=== PATIENT | female | born 1930 | race Caucasian/White ===

== ENCOUNTER 2016-07-23 06:20 | Inpatient (IN) | payer OTHER ==
[~2016-07-23] VITALS: Ht 154.9 cm; Wt 78.1 kg
[~2016-07-23 06:20] MED LIST: AMLODIPINE BESYL5 MG PO; ASPIR 8181 MG PO; ASPIRIN81 M1 PO; ATENOLOL100 MG; BACTRIM DS 8001 TA1 PO; BISACODYL5 MG PO; CALCIUM + VITA1 EAC2 PO; CALCIUM 600 MG1 EACH PO; CALCIUM CARB W/1 TA1 PO; CHEWABLE VITE1 CTB PO; CIPRO250 MG PO; COLACE100 MG; DOXYCYCLINE100 MG PO; FERRLECIT62.5 MG/5 IV; FERROUS SULFAT325 M1; FERROUS SULFAT325 MG PO; FLUCONAZOLE100 MG PO; FUROSEMIDE20 M1 PO; HUMALOG100 U/ML SC; HYDRALAZINE10 MG PO; HYDROCODONE BIT1 T11 PO; JANUVIA100 MG PO; JANUVIA50 MG; JANUVIA50 MG PO; K-TAB10 MEQ PO; LASIX20 MG PO; LEVOFLOXACIN500 MG PO; LOPERAMIDE2 MG; MACROBID100 M1 PO; MIRALAX17 GM/PACK PO; MOM30 ML PO; MOTRIN800 MG PO; NORCO 5-325 TA1 EACH PO; NORVASC5 MG PO; OYSTER CALCIUM1 TA1 PO; OYSTER SHELL CA1 TAB; POTASSIUM99 M2 PO; PREDNISONE10 M1 PO; PREDNISONE10 MG PO; PRILOSEC20 MG; PRILOSEC20 MG PO; PROTONIX TR40 MG PO; ROBITUSSIN DM 105 ML PO; SIMVASTATIN20 MG PO; SODIUM FERRIC GLUCONATE COMPLEX IV; TENORMIN100 MG PO; VITAMIN D1000 IU PO; VITAMIN D32000 IU PO; VYTORIN 10 MG-41 TA1 PO; XANAX0.25 MG PO; ZITHROMAX Z PA250 MG PO; ZOCOR40 MG PO; [UNRECOGNIZED DRUG - OTHER]; [UNRECOGNIZED DRUG - OTHER]; [UNRECOGNIZED DRUG - REMARK]; [UNRECOGNIZED DRUG - REMARK]
[2016-07-23 06:29] VITALS: BP 125/59
[2016-07-23 07:13] LABS: BILIRUBIN NEGATIVE (NEGATIVE); BLOOD NEGATIVE (NEGATIVE); CLARITY CLOUDY (CLEAR); COLOR YELLOW (YELLOW); GLUCOSE NEGATIVE (NEGATIVE); KETONE NEGATIVE (NEGATIVE); LEUKO ESTERASE 2+ (NEGATIVE); NITRITE POSITIVE (NEGATIVE); PH 6.5 (5.0-9.0); PROTEIN 2+ (NEGATIVE); SPECIFIC GRAVITY 1.015 (1.005-1.030); UROBILINOGEN 0.2 E.U./dl (0.2-1.0)
[2016-07-23 07:19] VITALS: BP 124/68
[2016-07-23 07:20] LABS: BASO # 0.1 10*3/uL (0.0-0.1); EOS # 0.2 10*3/uL (0.0-0.4); EOS % 2.4 % (1.0-4.0); HEMATOCRIT 35.5 % (37.0-47.0); LYMPH # 1.1 10*3/uL (1.3-4.4); LYMPH % 14.5 % (27.0-41.0); MEAN CELL VOLUME 86.2 fl (81.0-99.0); MEAN CORPUSCULAR HGB 26.7 pg (27.0-31.0); MEAN PLATELET VOLUME 11.4 fl (9.6-12.3); MONO # 0.6 10*3/uL (0.1-1.0); NEUT # 5.3 10*3/uL (2.3-7.9); NEUT % 73.8 % (47.0-73.0); PLATELET COUNT AUTOMATED 208 10*3/uL (130-400); RED BLOOD COUNT 4.12 10*6/uL (4.10-5.10); RED CELL DISTRI WIDTH 14.8 % (0-14.5); WHITE BLOOD COUNT 7.2 10*3/uL (4.8-10.8)
[2016-07-23 07:26] LABS: BACTERIA 4+; URINE REFLEX COMMENT YES (NO); WBC TNTC wbc/hpf (0-5)
[2016-07-23 07:27] LABS: PROTHROMBIN TIME 10.8 SECONDS (9.0-12.4)
[2016-07-23 07:31] LABS: URINE AMPHETAMINES < 1000 (1000ng/ml); URINE BARBITURATES < 200 (200ng/ml); URINE COCAINE < 300 (300ng/ml)
[2016-07-23 07:43] LABS: ALBUMIN 3.3 gm/dl (3.1-4.5); ALKALINE PHOSPHATASE 94 U/L (45-117); BUN 28 mg/dl (7-24); CARBON DIOXIDE 22 mmol/L (21-32); CHLORIDE 108 mmol/L (98-107); EST GLOM FILT AFRICAN AMERICAN 39 ml/min; GLUCOSE 132 mg/dL (65-99); MAGNESIUM 1.9 mg/dL (1.5-2.1); POTASSIUM 4.1 mmol/L (3.5-5.1); SGOT/AST 15 IU/L (3-35); SGPT/ALT 13 U/L (12-78); SODIUM 142 mmol/L (136-145)
[2016-07-23 07:44] LABS: TROPONIN I < 0.015 ng/ml (<0.5)
[2016-07-23 09:30] VITALS: BP 186/67
[2016-07-23 12:24] LABS: CKMB 0.7 ng/ml (0.5-3.6); CPK 35 U/L (26-192)
[2016-07-23 12:25] LABS: TROPONIN I < 0.015 ng/ml (<0.5)
[2016-07-23 16:00] VITALS: BP 147/68
[2016-07-23 19:44] LABS: CKMB 0.8 ng/ml (0.5-3.6); CPK 32 U/L (26-192)
[2016-07-23 19:45] LABS: TROPONIN I < 0.015 ng/ml (<0.5)
[2016-07-23 20:00] VITALS: BP 149/62
[2016-07-24] VITALS: BP 136/55
[2016-07-24 00:50] LABS: CKMB 0.7 ng/ml (0.5-3.6); CPK 25 U/L (26-192); TROPONIN I < 0.015 ng/ml (<0.5)
[2016-07-24 07:26] LABS: BASO % 0.3 % (0.0-1.0); EOS # 0.2 10*3/uL (0.0-0.4); EOS % 2.7 % (1.0-4.0); HEMATOCRIT 34.6 % (37.0-47.0); HEMOGLOBIN 10.5 g/dl (12.0-16.0); MEAN CORPUSCULAR HGB 25.8 pg (27.0-31.0); MEAN CORPUSCULAR HGB CONC 30.3 g/dl (33.0-37.0); MONO # 0.5 10*3/uL (0.1-1.0); MONO % 7.9 % (3.0-9.0); NEUT # 4.9 10*3/uL (2.3-7.9); NEUT % 73.5 % (47.0-73.0); PLATELET COUNT AUTOMATED 180 10*3/uL (130-400); RED BLOOD COUNT 4.07 10*6/uL (4.10-5.10); RED CELL DISTRI WIDTH 14.7 % (0-14.5); WHITE BLOOD COUNT 6.6 10*3/uL (4.8-10.8)
[2016-07-24 07:57] LABS: PROTHROMBIN TIME 10.5 SECONDS (9.0-12.4)
[2016-07-24 08:00] VITALS: BP 156/64
[2016-07-24 08:05] LABS: BILIRUBIN, TOTAL 0.5 mg/dl (0.2-1.0); MAGNESIUM 1.6 mg/dL (1.5-2.1); PHOSPHOROUS 2.7 mg/dL (2.5-4.9); POTASSIUM 4.2 mmol/L (3.5-5.1); TOTAL PROTEIN 6.5 gm/dL (6.4-8.2)
[2016-07-24 12:00] VITALS: BP 160/74
[2016-07-24 16:00] VITALS: BP 150/87
[2016-07-24 20:00] VITALS: BP 156/73
[2016-07-25] VITALS: BP 158/64
[2016-07-25 08:00] VITALS: BP 150/80
[2016-07-25 12:00] VITALS: BP 126/55
[2016-07-25] MEDS ORDERED: CEFUROXIME AXE250 MG PO (14:23)
[2016-07-25 16:00] VITALS: BP 145/88
== END 2016-07-25 19:00 | DRG 682 ==
LOC: ED 06:20 → 4E 09:02 → EDHOLD 09:02 → 4E 09:25
PROVIDERS: Emergency Medicine Emergency Medical Services; Family Medicine
DX: N17.0 Acute kidney failure with tubular necrosis (principal); G93.41 Metabolic encephalopathy; E11.65 Type 2 diabetes mellitus with hyperglycemia; E11.22 Type 2 diabetes mellitus with diabetic chronic kidney disease; N39.0 Urinary tract infection, site not specified; D64.9 Anemia, unspecified; E87.8 Other disorders of electrolyte and fluid balance, not elsewhere classified; N18.3 Chronic kidney disease, stage 3 (moderate); I12.9 Hypertensive chronic kidney disease with stage 1 through stage 4 chronic kidney disease, or unspecified chronic kidney disease; K21.9 Gastro-esophageal reflux disease without esophagitis; E78.5 Hyperlipidemia, unspecified; B96.4 Proteus (mirabilis) (morganii) as the cause of diseases classified elsewhere; E66.9 Obesity, unspecified; K57.90 Diverticulosis of intestine, part unspecified, without perforation or abscess without bleeding; Z90.49 Acquired absence of other specified parts of digestive tract; Z85.3 Personal history of malignant neoplasm of breast; Z90.710 Acquired absence of both cervix and uterus; Z90.10 Acquired absence of unspecified breast and nipple; Z98.49 Cataract extraction status, unspecified eye; Z87.891 Personal history of nicotine dependence; Z82.49 Family history of ischemic heart disease and other diseases of the circulatory system; Z83.3 Family history of diabetes mellitus; Z80.3 Family history of malignant neoplasm of breast; Z79.82 Long term (current) use of aspirin; Z79.899 Other long term (current) drug therapy; Z87.440 Personal history of urinary (tract) infections; Z68.32 Body mass index [BMI] 32.0-32.9, adult

== ENCOUNTER 2016-10-06 09:46 | Inpatient (IN) | payer OTHER ==
[2016-10-06] VITALS (14 sets, daily range): BP systolic 99–162; BP diastolic 55–100
[~2016-10-06] VITALS: Ht 154.9 cm; Wt 80.3 kg
[~2016-10-06 09:46] MED LIST changes: +CEFUROXIME AXE250 MG PO
[2016-10-06 10:15] LABS: HEMATOCRIT 21.1 % (37.0-47.0); MEAN CELL VOLUME 76.7 fl (81.0-99.0); MEAN CORPUSCULAR HGB 21.5 pg (27.0-31.0); MEAN PLATELET VOLUME 11.1 fl (9.6-12.3); NUCLEATED RED BLOOD CELL 0.2 % (0.0-0.0); PLATELET COUNT AUTOMATED 253 10*3/uL (130-400); RED BLOOD COUNT 2.75 10*6/uL (4.10-5.10); RED CELL DISTRI WIDTH 16.5 % (0-14.5); WHITE BLOOD COUNT 11.2 10*3/uL (4.8-10.8)
[2016-10-06 10:19] LABS: HEMOGLOBIN 5.9 g/dl (12.0-16.0)
[2016-10-06 10:24] LABS: INTERNATIONAL NORM RATIO 1.1 (2.0-3.5); PROTHROMBIN TIME 11.2 SECONDS (9.0-12.4)
[2016-10-06 10:31] LABS: ALBUMIN 3.3 gm/dl (3.1-4.5); ALKALINE PHOSPHATASE 93 U/L (45-117); BILIRUBIN, TOTAL 0.7 mg/dl (0.2-1.0); BUN 34 mg/dl (7-24); CARBON DIOXIDE 25 mmol/L (21-32); CHLORIDE 107 mmol/L (98-107); CPK 25 U/L (26-192); EST GLOM FILT AFRICAN AMERICAN 39 ml/min; GLUCOSE 133 mg/dL (65-99); IRON 22 ug/dL (50-170); IRON SATURATION 5 %; MAGNESIUM 2.1 mg/dL (1.5-2.1); POTASSIUM 4.5 mmol/L (3.5-5.1); SGOT/AST 13 IU/L (3-35); SGPT/ALT 20 U/L (12-78); SODIUM 142 mmol/L (136-145); TOTAL PROTEIN 7.1 gm/dL (6.4-8.2); UIBC 412 ug/dL (110-365)
[2016-10-06 10:32] LABS: C-REACTIVE PROTEIN < 0.29 MG/DL (0-0.3); CKMB 0.8 ng/ml (0.5-3.6); TROPONIN I < 0.015 ng/ml (<0.045)
[2016-10-06 10:37] LABS: EOSINOPHIL # 0.1 10*3/uL (0-0.4); EOSINOPHILS 1 % (1-4); HYPOCHROMIA MARKED; LYMPHOCYTE # 0.7 10*3/uL (1.3-4.4); MONOCYTE # 0.2 10*3/uL (0.1-1.0); NEUTROPHIL # 10.2 10*3/uL (2.3-7.9); NEUTROPHILS 91 % (47-73); PLATELET SUFFICIENCY NORMAL (NORMAL); POLYCHROMASIA SLIGHT; TOTAL CELLS COUNTED 100 #CELLS; TOXIC GRANULATION SLIGHT
[2016-10-06] MEDS ORDERED: ASPIRIN81 M1 PO (10:40)
[2016-10-06] MEDS ORDERED: ATENOLOL25 MG PO (10:40)
[2016-10-06] MEDS ORDERED: JANUVIA100 MG PO (10:41)
[2016-10-06] MEDS ORDERED: THERA-D4000 UNIT PO (10:41)
[2016-10-06] MEDS ORDERED: PROTONIX40 MG PO (10:42)
[2016-10-06] MEDS ORDERED: SIMVASTATIN20 MG PO (10:42)
[2016-10-06] MEDS ORDERED: DAILY VALUE1 EACH PO (10:42)
[2016-10-06] MEDS ORDERED: NORVASC5 MG PO (10:42)
[2016-10-06] MEDS ORDERED: TYLENOL325 M1 PO (10:43)
[2016-10-06 11:18] LABS: FERRITIN 8.5 ng/mL (10.0-291.0)
[2016-10-06 11:28] LABS: FOLIC ACID > 24.00 ng/mL (>5.38)
[2016-10-06 12:12] LABS: CKMB 0.9 ng/ml (0.5-3.6); CPK 28 U/L (26-192)
[2016-10-06 12:14] LABS: TROPONIN I < 0.015 ng/ml (<0.045)
[2016-10-06 18:20] LABS: CKMB 0.9 ng/ml (0.5-3.6); CPK 28 U/L (26-192)
[2016-10-06 18:23] LABS: TROPONIN I < 0.015 ng/ml (<0.045)
[2016-10-06 19:24] LABS: HEMATOCRIT 28.2 % (37.0-47.0); HEMOGLOBIN 8.6 g/dl (12.0-16.0)
[2016-10-07] VITALS: BP 150/74
[2016-10-07 00:58] LABS: CKMB 0.6 ng/ml (0.5-3.6); CPK 25 U/L (26-192); TROPONIN I < 0.015 ng/ml (<0.045)
[2016-10-07 05:01] LABS: BILIRUBIN NEGATIVE (NEGATIVE); BLOOD NEGATIVE (NEGATIVE); CLARITY CLEAR (CLEAR); COLOR YELLOW (YELLOW); GLUCOSE NEGATIVE (NEGATIVE); KETONE NEGATIVE (NEGATIVE); LEUKO ESTERASE NEGATIVE (NEGATIVE); NITRITE NEGATIVE (NEGATIVE); PH 7.5 (5.0-9.0); PROTEIN 1+ (NEGATIVE); SPECIFIC GRAVITY 1.015 (1.005-1.030); UROBILINOGEN 0.2 E.U./dl (0.2-1.0)
[2016-10-07 05:16] LABS: EPITHELIAL CELLS 40-45
[2016-10-07 06:32] LABS: BASO # 0.1 10*3/uL (0.0-0.1); BASO % 0.7 % (0.0-1.0); EOS # 0.3 10*3/uL (0.0-0.4); EOS % 2.7 % (1.0-4.0); HEMATOCRIT 28.5 % (37.0-47.0); HEMOGLOBIN 8.6 g/dl (12.0-16.0); IG # 0.1 10*3/uL (0.0-0.1); LYMPH % 9.6 % (27.0-41.0); MEAN CELL VOLUME 78.3 fl (81.0-99.0); MEAN CORPUSCULAR HGB 23.6 pg (27.0-31.0); MEAN CORPUSCULAR HGB CONC 30.2 g/dl (33.0-37.0); MEAN PLATELET VOLUME 11.6 fl (9.6-12.3); MONO # 0.8 10*3/uL (0.1-1.0); MONO % 7.2 % (3.0-9.0); NEUT # 8.3 10*3/uL (2.3-7.9); NEUT % 78.7 % (47.0-73.0); NUCLEATED RED BLOOD CELL 0.2 % (0.0-0.0); PLATELET COUNT AUTOMATED 222 10*3/uL (130-400); RED BLOOD COUNT 3.64 10*6/uL (4.10-5.10); RED CELL DISTRI WIDTH 17.1 % (0-14.5); WHITE BLOOD COUNT 10.6 10*3/uL (4.8-10.8)
[2016-10-07 07:00] LABS: INTERNATIONAL NORM RATIO 1.1 (2.0-3.5); PROTHROMBIN TIME 11.3 SECONDS (9.0-12.4)
[2016-10-07 07:09] LABS: ALBUMIN 3.2 gm/dl (3.1-4.5); BILIRUBIN, TOTAL 1.5 mg/dl (0.2-1.0); FREE T4 1.03 ng/dl (0.76-1.46); PHOSPHOROUS 3.3 mg/dL (2.5-4.9); POTASSIUM 4.8 mmol/L (3.5-5.1); TOTAL PROTEIN 6.8 gm/dL (6.4-8.2)
[2016-10-07 07:15] LABS: THYROID STIM HORMONE (HS) 2.11 uIU/ml (0.358-4.75)
[2016-10-07 08:00] VITALS: BP 156/54
[2016-10-07 12:00] VITALS: BP 123/76
== END 2016-10-07 15:48 | disposition other institution (70) | DRG 812 ==
LOC: ED 09:46 → EDHOLD 10:24 → 4E 10:24
PROVIDERS: Emergency Medicine; Family Medicine; Internal Medicine
PROC: 30233N1 Transfusion of Nonautologous Red Blood Cells into Peripheral Vein, Percutaneous Approach (ICD-10-PCS; principal; 2016-10-06)
DX: D50.9 Iron deficiency anemia, unspecified (principal); E11.22 Type 2 diabetes mellitus with diabetic chronic kidney disease; E11.65 Type 2 diabetes mellitus with hyperglycemia; J84.10 Pulmonary fibrosis, unspecified; N18.3 Chronic kidney disease, stage 3 (moderate); K57.30 Diverticulosis of large intestine without perforation or abscess without bleeding; K59.09 Other constipation; K21.9 Gastro-esophageal reflux disease without esophagitis; E78.5 Hyperlipidemia, unspecified; D72.825 Bandemia; I12.9 Hypertensive chronic kidney disease with stage 1 through stage 4 chronic kidney disease, or unspecified chronic kidney disease; K44.9 Diaphragmatic hernia without obstruction or gangrene; E66.9 Obesity, unspecified; Z90.11 Acquired absence of right breast and nipple; Z90.49 Acquired absence of other specified parts of digestive tract; Z90.710 Acquired absence of both cervix and uterus; Z87.891 Personal history of nicotine dependence; Z98.49 Cataract extraction status, unspecified eye; Z82.49 Family history of ischemic heart disease and other diseases of the circulatory system; Z85.3 Personal history of malignant neoplasm of breast; Z83.3 Family history of diabetes mellitus; Z80.3 Family history of malignant neoplasm of breast; Z79.1 Long term (current) use of non-steroidal anti-inflammatories (NSAID); Z79.899 Other long term (current) drug therapy; Z68.33 Body mass index [BMI] 33.0-33.9, adult

== ENCOUNTER → 2016-12-05 | Outpatient (CLI) | payer OTHER ==
[2016-12-05] VITALS (8 sets, daily range): BP systolic 118–149; BP diastolic 44–84
[~2016-12-05] MED LIST changes: +ATENOLOL25 MG PO; +DAILY VALUE1 EACH PO; +PROTONIX40 MG PO; +THERA-D4000 UNIT PO; +TYLENOL325 M1 PO
[2016-12-06] VITALS: BP 150/53
[2016-12-06 00:20] VITALS: BP 152/51
== END | disposition home or self-care (01) ==
LOC: TRNFUSION 13:24
DX: D64.9 Anemia, unspecified (principal)

== ENCOUNTER → 2016-12-18 | Day surgery (SDC) | payer OTHER ==
--- NOTE | ~2016-12-18 | O ---
[place], [place] OPERATIVE NOTE NAME: RODRIGO ORTEGA UNIT #: [id number] ROOM: DOCTOR: ROBERT GERARDO MD BIRTHDATE: [birth year] DOS: 12/18/2016 HISTORY OF PRESENT ILLNESS: An 86-year-old patient with epigastric distress, guaiac positivity. ALLERGIES: No known medication. SOCIAL HISTORY: Nonsmoker, nonalcohol consumer. FAMILY HISTORY: Noncontributory. PAST MEDICAL HISTORY: Hypercholesterolemia, hypertension, chronic renal disease, diabetes and diverticulosis. PAST SURGICAL HISTORY: Cholecystectomy, hysterectomy, breast CA, history of mastectomy and cataract. PROCEDURE: Today's procedure part of investigation is panendoscopy plus biopsy. PREMEDICATION: Versed and Diprivan. SCOPE: Olympus forward-viewing gastroscope Q10 video. REPORT: After putting the patient in the left lateral position and after application of lubricant to the scope, the scope was introduced. Thereafter, under direct visualization, I advanced through the length of the esophagus without difficulty. Esophagus cervicothoracic distally carefully examined. Gastric pouch was entered. Hiatal hernia was noticed. Gastritis mild degree, biopsied. Duodenal bulb, second and third part within normal limits. The patient extubated, tolerated procedure well. IMPRESSION: Hiatal hernia, gastritis. PLAN AND DISCUSSION: The patient on Protonix 40 mg daily. We do not have answer to a guaiac positivity in a gross form. PLAN AND DISCUSSION: May benefit from colonoscopy if family agrees and follow up thereafter. We will contact family. Thank you very much indeed. Sincerely, [place], [place] OPERATIVE NOTE NAME: RODRIGO ORTEGA UNIT #: [id number] ROOM: DOCTOR: ROBERT GERARDO MD BIRTHDATE: [birth year] ROBERT GERARDO MD CM:OPRECORD:OPERATIVE NOTE [id number] ROBERT GERARDO MD 12/18/16 2317 interface
[2016-12-18 09:45] VITALS: BP 155/68
[2016-12-18 10:36] VITALS: BP 152/69
[2016-12-18 10:54] VITALS: BP 150/62
[2016-12-18 11:04] VITALS: BP 160/70
== END | disposition home or self-care (01) ==
LOC: SDC 12-12 09:30
DX: K29.70 Gastritis, unspecified, without bleeding (principal); K44.9 Diaphragmatic hernia without obstruction or gangrene; E78.00 Pure hypercholesterolemia, unspecified; I12.9 Hypertensive chronic kidney disease with stage 1 through stage 4 chronic kidney disease, or unspecified chronic kidney disease; N18.9 Chronic kidney disease, unspecified; E11.22 Type 2 diabetes mellitus with diabetic chronic kidney disease; D64.9 Anemia, unspecified; Z90.49 Acquired absence of other specified parts of digestive tract; Z90.710 Acquired absence of both cervix and uterus; Z85.3 Personal history of malignant neoplasm of breast; Z90.10 Acquired absence of unspecified breast and nipple

== ENCOUNTER 2017-03-08 07:42 | Inpatient (IN) | payer OTHER ==
[~2017-03-08] VITALS: Ht 154.9 cm; Wt 90.8 kg
--- NOTE | ~2017-03-08 | PR ---
[place], [place] PROGRESS NOTE NAME: RODRIGO ORTEGA UNIT #: [id number] ROOM: 507 DOCTOR: MARIA D DORADO MD BIRTHDATE: [birth year] DOS: 03/11/2017 PULMONARY FOLLOWUP SUBJECTIVE: She has been comfortably resting on the bed, was continued diuretic therapy, oxygen supplementation and corticosteroids. The patient has not reported any symptoms of chest pain, coughing or sputum expectoration for today. The coughing has been noted decreased. OBJECTIVE: VITAL SIGNS: Showed normal temperature, respirations 18, heart rate 93, blood pressure 150/74-164/108. Intake of the patient was recorded as ____, output 1800 mL, ____ for 1240 mL. Pulse ox saturation on 3 L nasal cannula 95% saturation. HEENT: Examination shows head was atraumatic. Eyes nonicterus. NECK: Supple. CARDIOVASCULAR: S1, S2 audible. LUNGS: Decreased breath sounds in the lower portion of the lungs. ABDOMEN: Soft, nontender. EXTREMITIES: Shows very mild edema at this time. LABORATORY DATA: CBC of this morning was noted as hemoglobin 8.8, hematocrit 29.5, platelet count was normal. BMP this morning, BUN 36, creatinine 1.69. Glucose 210. IMPRESSION: 1. Resolving acute congestive heart failure, bilateral pleural fluid with acute tracheobronchitis and exacerbation of chronic obstructive pulmonary disease. 2. Resolving acute kidney injury. PLAN OF MANAGEMENT: Continuation of the current medical therapy, plan of management, bronchodilators, oxygen supplementation and other treatment as in progress. The Cardiology assessment has been noted underway at this time. She will be getting echocardiogram soon. [place], [place] PROGRESS NOTE NAME: RODRIGO ORTEGA UNIT #: [id number] ROOM: 507 DOCTOR: MARIA D DORADO MD BIRTHDATE: [birth year] MARIA D GILLETTE MD CM:PNTRANS [phone] MARIA D KNIGHT MD 03/11/17 1605 interface
--- NOTE | ~2017-03-08 | EKG ---
[place], [place] ELECTROCARDIOGRAM REPORT NAME: RODRIGO ORTEGA UNIT #: [id number] ROOM: 507 DOCTOR: CATALINA COE,JULIETH BIRTHDATE: [birth year] DOS: 03/08/2017 TIME: 8:01 a.m. CONCLUSION: 1. Sinus tachycardia. 2. Non-specific ST-T changes. JULIETH ARNOLD MD CM:EKGRPT:ELECTROCARDIOGRAM REPORT [id number] JULIETH ARNOLD MD
--- NOTE | ~2017-03-08 | CON ---
[place], [place] REPORT OF CONSULTATION NAME[id number] UN[facility] #: [id number] ROOM: 507 DOCTOR: MARIA D DORADO MD BIRTHDATE: [birth year] DOS: 03/10/2017 REASON FOR CONSULTATION: To assess the patient for ongoing respiratory symptoms with exacerbation of COPD. HISTORY OF PRESENT ILLNESS: This is an 86-year-old elderly female who is a resident of a nursing facility. She has been brought to the hospital as the patient has reported symptoms of shortness breath, which has been ongoing for the past few days, not responding to the treatment. The patient was also noted with the cough which has been noted without any sputum expectoration. She denies symptoms of chest pain. She has been noted with edema of the lower extremities with these symptoms. Wheezing was also noted. The patient has been assessed in the Emergency Room and has been admitted to the hospital for further medical management for the exacerbation of COPD and possibility of congestive heart failure. The patient was noted with oxygen desaturation. On 3 L nasal cannula oxygen supplementation, the saturation was noted only 83%. The patient currently sitting on the chair at this time, eating her lunch. She was noted with cough which has been noted moderate and nonproductive. Denies symptoms of chest pain. Shortness of breath was noted absent at rest, but noted with exertion and only occurs with some exertion at this time. REVIEW OF SYSTEMS: EYES: Denies any burning, redness, or discharge. EARS, NOSE, AND THROAT: No sore throat, hoarseness, otalgia, postnasal drainage or epistaxis. CARDIOVASCULAR: Denies anginal pain, edema or pain of the lower extremities at this time. She has been noted with some edema previously of the lower extremities. GASTROINTESTINAL: Denies dysphagia, nausea, vomiting, diarrhea, abdominal pain, hematemesis, melena, or dysphagia. History of chronic moderate obesity known. SKIN: Denies lesions or rashes. GENITOURINARY: Denies dysuria, suprapubic pain, or hematuria. CENTRAL NERVOUS SYSTEM: Denies dizziness, headache, diplopia, syncopal episodes. Remaining systems were reviewed with the patient, they were noted all negative. PAST MEDICAL HISTORY: 1. Known with history of essential hypertension. 2. Type 2 diabetes mellitus. 3. Essential hypertension. 4. Gastroesophageal reflux. 5. Hypercholesterolemia. 6. Moderate obesity. 7. History of diverticulosis. 8. Chronic kidney disease stage 3. 9. Diagnosis described for pulmonary fibrosis. PAST SURGICAL HISTORY: 1. Reported as cataract extraction with lens implantation. [place], [place] REPORT OF CONSULTATION NAME: RODRIGO ORTEGA UNIT #: [id number] ROOM: 507 DOCTOR: NAIN KNIGHT MD,MARIA D BIRTHDATE: [birth year] 2. Cholecystectomy. 3. Complete hysterectomy. 4. History of mastectomy. SOCIAL HISTORY: The patient was noted to have had tobacco use since teenager, a pack of cigarettes per day that was discontinued about 20 years ago. Denies history of occupation related pulmonary exposure. Denies history of alcohol or illicit drug use. Currently, a resident of [facility]. FAMILY HISTORY: Father at 71 with complications of congestive heart failure. Mother at 40 with complications related to breast cancer. HOME MEDICATIONS: Tylenol, atenolol, vitamin D, glipizide, DuoNeb, losartan, multivitamin, Protonix, simvastatin, and Januvia. DRUG ALLERGIES: NOTED ALLERGY TO HYDROCODONE. PHYSICAL EXAMINATION: GENERAL: An 86-year-old elderly female, currently sitting on the chair without any acute distress. Height was noted 5 feet 1 inch, weight of 200 pounds, BMI 37.8. VITAL SIGNS: Shows temperature noted normal since admission. The respiratory rate 16-20, heart rate 91-92, blood pressure 156/60-120/70. Pulse oxygen saturation noted on 2 liters is 98% saturation. HEENT: Shows head was atraumatic. Eyes nonicterus. [id number]-ap-[id number] senile hearing loss. NECK: Supple and obese. CARDIOVASCULAR: S1, S2 audible. LUNGS: The patient noted with moderately reduced breath sounds. Diffuse expiratory wheezing. There were no crackles. ABDOMEN: Soft, nontender. EXTREMITIES: Show chronic obesity with mild edema. CENTRAL NERVOUS SYSTEM: Cranial nerves 2-12 intact. No focal deficits. MUSCULOSKELETAL: No deformities. SKIN: Show no lesions or rashes. LABORATORY DATA: The patient's CBC on 03/08/2017 on admission, WBC count 16.2, hemoglobin 10, hematocrit 35.5, platelet count was noted as normal. CMP on 03/08/2017, of patient noted BUN 20, creatinine 1.43, glucose 24, remaining LFTs were normal. Troponin normal on 03/08/2017. The lactic acid on 03/08/2017 was normal. Follow up troponin of the patient in addition two sets were noted as normal on 03/08/2017. CBC on 03/09/2017, WBC count 11,000, hemoglobin 8.7, hematocrit 29.3 and platelet count 188,000. BMP of the patient on 03/09/2017, BUN 28, creatinine 1.71, glucose 185. CBC of this morning, WBC count 11.9, hemoglobin 8.4, hematocrit 28.2, platelet count 195,000. BMP of patient, BUN 38, creatinine 1.84. Remaining electrolytes were normal. Blood culture from 03/08/2017 of the patient so far show no bacterial growth. Final culture results were pending. The chest x-ray of the patient that was done on 03/08/2017 was noted with some basilar areas of atelectasis. She had a CT scan of the chest that was ordered today by the primary care attending, 03/10/2017, [place], [place] REPORT OF CONSULTATION NAME: RODRIGO ORTEGA UNIT #: [id number] ROOM: 507 DOCTOR: MARIA D DORADO MD BIRTHDATE: [birth year] which were personally reviewed shows, cardiomegaly noted with small bilateral pleural fluid; basilar areas of atelectasis. There was no evidence of pulmonary fibrosis as reported in the past history. IMPRESSION: 1. The patient who has been currently noted with diagnosis of acute hypoxic respiratory failure as a result of acute exacerbation of chronic obstructive pulmonary disease as well as acute congestive heart failure, possibly diastolic dysfunction. 2. Acute kidney injury in patient with chronic kidney disease, most likely related to intravascular volume depletion with the diuretic therapy and congestive heart failure. 3. Nonproductive cough related to tracheobronchitis. PLAN OF TREATMENT: The patient has been getting currently broad spectrum intravenous antibiotic, which will be changed to only Levaquin that has been arranged to adjust her kidney functions to be used at every 48 hours. Discontinue the vancomycin and Zosyn. There was no evidence of pneumonia. Continue current dose of steroids. The pleural fluid was noted small at this time that would not require any thoracentesis; however they will be monitored as needed with either the ultrasound or the chest x-ray assessment. Bronchodilator will be given every 4 hours to relieve the bronchospasm. Supportive therapy, plan of management and other care. Usual treatment, other care, plan of management. Additional change in treatment will be done based on the progression of the illness. We will monitor the kidney function. Avoid excessive severe diuresis to prevent further worsening of kidney functions. Consider Cardiology evaluation for the assessment and management of the patient with the congestive heart failure with diastolic dysfunction. Usual care. All other supportive therapy, plan of management. Additional change in treatment done based on progression of the illness. Sputum for Gram stain and culture if the patient is able to expectorate will be done as well. Other usual plan of therapy and care. Additional treatment changes continue to be made based on progression of the illness. Follow up chest x-ray will be ordered, to be done in the next couple of days to reassess the pleural effusions. MARIA D GILLETTE MD CM:CONSTR:REPORT OF CONSULTATION 1521 03/11/17 0858 interface
--- NOTE | ~2017-03-08 | PR ---
[place], [place] PROGRESS NOTE NAME: RODRIGO ORTEGA UNIT #: [id number] ROOM: 507 DOCTOR: ARACELI QUINN DO BIRTHDATE: [birth year] DOS: 03/12/2017 This is a report dictated for Dr. Gillette of Pulmonary service. SUBJECTIVE: The patient was seen and evaluated today. The patient is awake, alert and responsive. No nausea, vomiting, diarrhea, lightheadedness, dizziness or chest pain. The patient says her breathing has improved compared to yesterday. OBJECTIVE: VITAL SIGNS: Temperature of 98.3, pulse 78, respiratory rate 18, blood pressure of 158/66. HEENT: Shows head was atraumatic. Eyes nonicterus. Mild hearing loss. NECK: Supple and obese. CARDIOVASCULAR: S1, S2 audible. LUNGS: Diffuse expiratory wheeze and decreased breath sounds at the bases. No crackles or rhonchi. ABDOMEN: Soft, nontender. EXTREMITIES: Chronic obesity with mild edema. CENTRAL NERVOUS SYSTEM: Cranial nerves 2-12 intact. No focal deficits. SKIN: Shows no lesion or rashes. LABORATORY DATA: CBC; hemoglobin of 8.8, white cell count of 9.5 and platelet of 207. BMP 137, BUN is 42 and creatinine 1.64. MICROBIOLOGY: Blood cultures from 03/08/2017 preliminary no bacterial growth. IMPRESSIONS: 1. Acute congestive heart failure, bilateral fluid with acute tracheobronchitis, possible diastolic dysfunction. 2. Acute kidney injury with chronic kidney disease, most likely related to intravascular volume depletion with diuretic therapy and congestive heart failure. 3. Nonproductive cough related to tracheobronchitis. PLAN OF TREATMENT: 1. The patient is currently on Levaquin, DuoNebs and steroids. 2. Avoid excessive severe diuresis to prevent further worsening of kidney function. 3. The patient can be discharged from Pulmonary perspective. ARACELI QUINN DO [place], [place] PROGRESS NOTE NAME: RODRIGO ORTEGA UNIT #: [id number] ROOM: 507 DOCTOR: ARACELI QUINN DO BIRTHDATE: [birth year] MARIA D GILLETTE MD CM:BROOKE [phone] ARACELI QUINN DO 03/12/17 1150 interface
--- NOTE | ~2017-03-08 | PR ---
[place], [place] PROGRESS NOTE NAME[id number] UNIT #: [id number] ROOM: 507 DOCTOR: NAIN KNIGHT MD,MARIA D BIRTHDATE: [birth year] DOS: 03/12/2017 SUBJECTIVE: The patient was independently seen and examined with [id number] encounter. Physical examination personally performed. All the labs were personally reviewed with the patient. The decision about the patient's management were personally made for today's round. The note which was done by the nuclear medical technologist was approved as well. She has been doing very well at this time without any acute distress. The patient was noted without any symptoms of acute shortness breath, coughing at the present time. Physical examination does not reveal any acute finding of wheezing or crackles. The echocardiogram from 03/11/2017 for the patient was reviewed. Reported mild LVH with suspicion with normal left ventricular function. Grade 2 pseudonormal filling for the patient was also noted. There were no valvular abnormalities. LABORATORY DATA: The CBC, the patient noted mild anemia, normal WBC count. BMP were noted with BUN 42, creatinine 1.64. The patient has been responding to treatment with improvement. ASSESSMENT: Continue for the acute bronchitis as well as acute congestive heart failure, possibly diastolic dysfunction, pleural fluid and resolving acute kidney injury progressively. PLAN: The patient could be discharged to the nursing facility. The patient will obtain further medical management. MARIA D GILLETTE MD CM:PNTRANS [id number] MARIA D KNIGHT MD 03/14/17 1013 interface
[2017-03-08 07:42] VITALS: BP 204/106
[2017-03-08 08:05] LABS: BASO # 0.1 10*3/uL (0.0-0.1); BASO % 0.4 % (0.0-1.0); EOS # 0.1 10*3/uL (0.0-0.4); EOS % 0.9 % (1.0-4.0); HEMATOCRIT 33.5 % (37.0-47.0); LYMPH # 1.3 10*3/uL (1.3-4.4); LYMPH % 8.3 % (27.0-41.0); MEAN CELL VOLUME 85.5 fl (81.0-99.0); MEAN CORPUSCULAR HGB 25.5 pg (27.0-31.0); MEAN CORPUSCULAR HGB CONC 29.9 g/dl (33.0-37.0); MEAN PLATELET VOLUME 10.9 fl (9.6-12.3); MONO # 0.9 10*3/uL (0.1-1.0); MONO % 5.8 % (3.0-9.0); NEUT # 13.6 10*3/uL (2.3-7.9); NEUT % 83.9 % (47.0-73.0); PLATELET COUNT AUTOMATED 232 10*3/uL (130-400); RED BLOOD COUNT 3.92 10*6/uL (4.10-5.10); RED CELL DISTRI WIDTH 15.9 % (0-14.5); WHITE BLOOD COUNT 16.2 10*3/uL (4.8-10.8)
--- NOTE | 2017-03-08 08:16 | NUR ---
PT PLACED ON BIPAP IN ER FOR RESPIRATORY DISTRESS. 06/13, 8, 50% TO 45%, HR 107, SPO2 100%. MED FULL FACE MASK
[2017-03-08 08:23] LABS: ALBUMIN 3.1 gm/dl (3.1-4.5); ALKALINE PHOSPHATASE 115 U/L (45-117); BUN 20 mg/dl (7-24); CHLORIDE 106 mmol/L (98-107); CREATININE 1.43 mg/dL (0.55-1.02); POTASSIUM 4.7 mmol/L (3.5-5.1); SGOT/AST 19 IU/L (3-35); SGPT/ALT 14 U/L (12-78); SODIUM 138 mmol/L (136-145); TOTAL PROTEIN 7.3 gm/dL (6.4-8.2)
[2017-03-08 08:24] LABS: TROPONIN I < 0.015 ng/ml (<0.045)
[2017-03-08 08:34] VITALS: BP 140/66
[2017-03-08] MEDS ORDERED: DUONEB 3 MG/3 ML3 M1 INH (09:29)
[2017-03-08 09:30] VITALS: BP 153/75
[2017-03-08] MEDS ORDERED: LOSARTAN POTAS100 M1 PO (09:30)
--- NOTE | 2017-03-08 09:30 | NUR ---
A 86, admitted to ICCU, under the services of CATHERINE Mcgovern DO with a diagnosis of CHF. Chief complaint is SOB. Patient arrived via stretcher from ER. Monitor applied. Initial assessment completed. Vital signs taken and recorded. CATHERINE MCGOVERN DO notified of admission to the unit. Orders received. See assessment for past medical history, medications and allergies. Patient and/or family oriented to unit. [facility] visitation policy reviewed. Clothing/patient valuable form completed. ACUNA
[2017-03-08] MEDS ORDERED: BIOFREEZE118 ML T (09:31)
[2017-03-08] MEDS ORDERED: GLIPIZIDE2.5 MG PO (09:35)
--- NOTE | 2017-03-08 10:17 | NUR ---
MEDS RECONCILED FROM PENITENTIARY LIST
[2017-03-08 11:43] LABS: BILIRUBIN NEGATIVE (NEGATIVE); BLOOD TRACE-INTACT (NEGATIVE); CLARITY CLEAR (CLEAR); COLOR YELLOW (YELLOW); GLUCOSE NEGATIVE (NEGATIVE); KETONE NEGATIVE (NEGATIVE); LEUKO ESTERASE NEGATIVE (NEGATIVE); NITRITE NEGATIVE (NEGATIVE); PH 5.5 (5.0-9.0); SPECIFIC GRAVITY 1.015 (1.005-1.030); UROBILINOGEN 0.2 E.U./dl (0.2-1.0)
[2017-03-08 12:00] VITALS: BP 158/89
[2017-03-08 16:00] VITALS: BP 142/78
--- NOTE | 2017-03-08 19:29 | NUR ---
PT WATCHING TV. NO COMPLAINTS VOICED. NO DISTRESS NOTED.
[2017-03-08 20:00] VITALS: BP 150/75
--- NOTE | 2017-03-08 20:53 | NUR ---
COMPLETE BATH AND BED LINEN CHANGE DONE. PT TOLERATED WELL.
--- NOTE | 2017-03-08 22:58 | NUR ---
RESTORIL GIVEN AT 2130 FOR SLEEP WAS EFFECTIVE..... PT DOZING.
[2017-03-09] VITALS: BP 132/70
[2017-03-09 04:00] VITALS: BP 158/66
[2017-03-09 06:32] LABS: HEMATOCRIT 29.3 % (37.0-47.0); HEMOGLOBIN 8.7 g/dl (12.0-16.0); MEAN CELL VOLUME 83.7 fl (81.0-99.0); MEAN CORPUSCULAR HGB 24.9 pg (27.0-31.0); MEAN CORPUSCULAR HGB CONC 29.7 g/dl (33.0-37.0); MEAN PLATELET VOLUME 11.2 fl (9.6-12.3); PLATELET COUNT AUTOMATED 188 10*3/uL (130-400); RED CELL DISTRI WIDTH 15.3 % (0-14.5)
[2017-03-09 06:51] LABS: CREATININE 1.71 mg/dL (0.55-1.02); MAGNESIUM 1.8 mg/dL (1.5-2.1); PHOSPHOROUS 3.1 mg/dL (2.5-4.9); POTASSIUM 4.7 mmol/L (3.5-5.1)
[2017-03-09 06:55] LABS: PLATELET SUFFICIENCY NORMAL (NORMAL); TOTAL CELLS COUNTED 100 #CELLS
[2017-03-09 06:59] LABS: FREE T4 1.04 ng/dl (0.76-1.46); THYROID STIM HORMONE (HS) 0.81 uIU/ml (0.358-4.75)
[2017-03-09 08:00] VITALS: BP 143/67
[2017-03-09 13:15] VITALS: BP 153/73
--- NOTE | 2017-03-09 13:28 | NUR ---
TRANSFERRED TO [facility] VIA BED
--- NOTE | 2017-03-09 15:35 | NUR ---
Alert and oriented x3. Lungs diminished and clear throughout. Sharma intact for straw urine. Denies pain at this time. Currently on 3l O2 via NC, pox was 97%. Denies sob. Rt hand edema noted, mediport intact to left chest. MBP was 160/70.
[2017-03-09 16:00] VITALS: BP 160/70; BP 177/92
[2017-03-09 20:00] VITALS: BP 118/90
[2017-03-10] VITALS: BP 153/88
--- NOTE | 2017-03-10 00:03 | NUR ---
PATIENT AWAKE IN BED AT THIS TIME. ALERT & ORIENTED X3, BUT BIZARRE TALK NOTED. PATIENT VERY PLEASANT AND COOPERATIVE. PATIENT DENIES ANY PAIN/DISCOMFORT, BUT AUDIBLE WHEEZE NOTED. SCATTERED RHONCHI T/O LUNG RIVERA. PATIENT ENCOURAGED TCDB. RESPIRATORY PAGED AT THIS TIME FOR BREATHING TX. WILL MONITOR PATIENT.
--- NOTE | 2017-03-10 00:25 | NUR ---
RESPIRATORY AT BEDSIDE. PATIENT PLACED ON BIPAP.
--- NOTE | 2017-03-10 02:11 | NUR ---
PT MEDICATED WITH PO RESTORIL PER REQUEST. PATIENT STATES SHE IS HAVING A HARD TIME SLEEPING. WILL MONITOR.
--- NOTE | 2017-03-10 03:16 | NUR ---
EARLIER MEDICATION APPEARS EFFECTIVE. PATIENT SLEEPING WITH EYES CLOSED, NO S/S OF DISTRESS NOTED. WILL MONITOR. CALL LIGHT IN REACH.
--- NOTE | 2017-03-10 04:37 | NUR ---
PATIENT REQUESTING TO HAVE BIPAP OFF TO GET A SIP OF WATER. BIPAP REMOVED, PT PLACED ON O2 VIA NC AT 3L. PATIENT TURNED ON RIGHT SIDE AT THIS TIME. HYDRAGUARD CREAM APPLIED TO SACRAL/ROMMEL AREA. BIPAP RESUMED. PATIENT LEFT WITH BED LOCKED IN LOW POSITION, BED ALARM INTACT, CALL LIGHT IN REACH. WILL CONTINUE TO MONITOR.
--- NOTE | 2017-03-10 05:29 | NUR ---
PATIENT PULLED BIPAP MASK OFF FACE. REFUSING TO HAVE IT PUT BACK ON. NASAL CANNULA APPLID AT 3L NC. WILL MONITOR PT. CALL LIGHT IN REACH. BED LOCKED IN LOW POSITION, BED ALARM INTACT.
[2017-03-10 06:26] LABS: BASO % 0.3 % (0.0-1.0); EOS % 0.3 % (1.0-4.0); HEMATOCRIT 28.2 % (37.0-47.0); HEMOGLOBIN 8.4 g/dl (12.0-16.0); LYMPH % 8.6 % (27.0-41.0); MEAN CELL VOLUME 86.2 fl (81.0-99.0); MEAN CORPUSCULAR HGB 25.7 pg (27.0-31.0); MEAN CORPUSCULAR HGB CONC 29.8 g/dl (33.0-37.0); MEAN PLATELET VOLUME 11.7 fl (9.6-12.3); MONO # 0.9 10*3/uL (0.1-1.0); MONO % 7.9 % (3.0-9.0); NEUT # 9.8 10*3/uL (2.3-7.9); NEUT % 82.4 % (47.0-73.0); PLATELET COUNT AUTOMATED 195 10*3/uL (130-400); RED BLOOD COUNT 3.27 10*6/uL (4.10-5.10); RED CELL DISTRI WIDTH 15.7 % (0-14.5); WHITE BLOOD COUNT 11.9 10*3/uL (4.8-10.8)
[2017-03-10 07:06] LABS: CREATININE 1.84 mg/dL (0.55-1.02); POTASSIUM 4.2 mmol/L (3.5-5.1)
[2017-03-10 08:00] VITALS: BP 120/70
--- NOTE | 2017-03-10 08:00 | NUR ---
HOB ELEVATED, EASY RESPIRATIONS WITH SKIN W/D. PT DENIES C/O AT PRESENT TIME. SEE SHIFT ASSESSMENT. BEDALARM FOR PT SAFETY.
--- NOTE | 2017-03-10 11:49 | NUR ---
OOB TO CHAIR, CALL LIGHT SYSTEM WITHIN REACH. BODY ALARM FOR PT SAFETY.
--- NOTE | 2017-03-10 11:57 | NUR ---
DR ABDI IN TO SEE PT.
[2017-03-10 12:00] VITALS: BP 156/62
--- NOTE | 2017-03-10 12:56 | NUR ---
DR GILLETTE IN TO SEE PT.
[2017-03-10 16:00] VITALS: BP 150/76
[2017-03-10 20:00] VITALS: BP 157/94
--- NOTE | 2017-03-10 23:23 | NUR ---
pt placed on bipap post tx
[2017-03-11] VITALS: BP 168/79
[2017-03-11 07:08] LABS: HEMATOCRIT 29.5 % (37.0-47.0); HEMOGLOBIN 8.8 g/dl (12.0-16.0); MEAN CORPUSCULAR HGB 25.1 pg (27.0-31.0); MEAN CORPUSCULAR HGB CONC 29.8 g/dl (33.0-37.0); MEAN PLATELET VOLUME 11.1 fl (9.6-12.3); PLATELET COUNT AUTOMATED 204 10*3/uL (130-400); RED BLOOD COUNT 3.51 10*6/uL (4.10-5.10); RED CELL DISTRI WIDTH 15.3 % (0-14.5); WHITE BLOOD COUNT 8.8 10*3/uL (4.8-10.8)
[2017-03-11 07:29] LABS: CREATININE 1.69 mg/dL (0.55-1.02); POTASSIUM 4.6 mmol/L (3.5-5.1)
--- NOTE | 2017-03-11 07:30 | NUR ---
ASSUMED CARE OF PATIENT AT THIS TIME, PT SITTING UP IN CHAIR WATCHING TV, PLEASANT, COOPERATIVE, AND TALKATIVE
[2017-03-11 07:48] LABS: TOTAL CELLS COUNTED 100 #CELLS
[2017-03-11 07:49] LABS: PLATELET SUFFICIENCY NORMAL (NORMAL); POLYCHROMASIA SLIGHT
[2017-03-11 08:00] VITALS: BP 158/74; BP 164/108
--- NOTE | 2017-03-11 08:00 | NUR ---
RECHECKED PTS BP WITH MANUAL BP CUFF 158/74
--- NOTE | 2017-03-11 08:30 | NUR ---
INSTRUCTIONAL SYSTEMS SPECIALIST VS. PT IS LTC AT [facility].
--- NOTE | 2017-03-11 08:52 | NUR ---
Patient is long term care social worker care at the [facility] and can return when medically stable for discharge.
[2017-03-11 12:00] VITALS: BP 154/50
[2017-03-11 16:00] VITALS: BP 161/62
[2017-03-11 20:00] VITALS: BP 159/64
--- NOTE | 2017-03-11 23:21 | NUR ---
PT PLACED ON BIPAP POST TX
[2017-03-12] VITALS: BP 158/66
--- NOTE | 2017-03-12 03:56 | NUR ---
PATIENT ASLEEP IN BED AT THIS TIME. RESPIRATIONS EASY, NO S/S OF DISTRESS NOTED ON BIPAP. WILL MONITOR. BED LOCKED IN LOW POSITION, BED ALARM INTACT, CALL LIGHT IN REACH.
--- NOTE | 2017-03-12 04:45 | NUR ---
PATIENT TOOK BIPAP MASK OFF AT THIS TIME. REQUESTING TO HAVE NASAL CANNULA PUT BACK ON. O2 VIA NC APPLIED AT 2L.
[2017-03-12 06:49] LABS: HEMATOCRIT 29.7 % (37.0-47.0); HEMOGLOBIN 8.8 g/dl (12.0-16.0); MEAN CELL VOLUME 84.1 fl (81.0-99.0); MEAN CORPUSCULAR HGB 24.9 pg (27.0-31.0); MEAN CORPUSCULAR HGB CONC 29.6 g/dl (33.0-37.0); PLATELET COUNT AUTOMATED 207 10*3/uL (130-400); RED BLOOD COUNT 3.53 10*6/uL (4.10-5.10); RED CELL DISTRI WIDTH 15.4 % (0-14.5); WHITE BLOOD COUNT 9.5 10*3/uL (4.8-10.8)
[2017-03-12 07:23] LABS: OVALOCYTES FEW; PLATELET SUFFICIENCY NORMAL (NORMAL); POLYCHROMASIA SLIGHT; TOTAL CELLS COUNTED 100 #CELLS
[2017-03-12 07:29] LABS: CREATININE 1.64 mg/dL (0.55-1.02); POTASSIUM 4.6 mmol/L (3.5-5.1)
--- NOTE | 2017-03-12 07:30 | NUR ---
PT RETURNED FROM XRAY, RESPS ASSUMED CARE OF PT AT THIS TIME, RESPS EASY AND NONLABORED WITH NO S/S OF DISTRESS
[2017-03-12 08:00] VITALS: BP 154/92
[2017-03-12] MEDS ORDERED: LASIX20 MG PO (11:28)
[2017-03-12] MEDS ORDERED: PREDNISONE10 MG PO (11:41)
[2017-03-12 12:00] VITALS: BP 155/85
--- NOTE | 2017-03-12 14:03 | NUR ---
Patient discharged back to the [facility], transportation scheduled for 2:30 with [facility], and nursing notified. No answer from friend listed on face sheet unable to leave voicemail
--- NOTE | 2017-03-12 14:30 | NUR ---
Discharge instructions reviewed with patient/family. Patient receptive and verbalizes understanding. Follow-up care arranged. Written instructions given to patient/family. LIFETEAM HERE TO CUT OUT STITCHER PATIENT FOR [facility]. MEDIPORT NEEDLE REMOVED. HUNT D/C'ED. REPORT GIVEN TO NURSE. MARI THOMAS
== END 2017-03-12 14:37 | disposition other institution (70) | DRG 871 ==
LOC: ED 07:42 → EDHOLD 08:38 → 5E 08:38 → ICCU 08:38 → 5E 03-09 12:34
PROVIDERS: Emergency Medicine; Family Medicine; Student in an Organized Health Care Education/Training Program; ADMIT Emergency Medicine
PROC: 5A09357 Assistance with Respiratory Ventilation, Less than 24 Consecutive Hours, Continuous Positive Airway Pressure (ICD-10-PCS; principal; 2017-03-08)
DX: A41.9 Sepsis, unspecified organism (principal); J18.9 Pneumonia, unspecified organism; J96.01 Acute respiratory failure with hypoxia; I50.31 Acute diastolic (congestive) heart failure; E44.0 Moderate protein-calorie malnutrition; E11.65 Type 2 diabetes mellitus with hyperglycemia; I13.0 Hypertensive heart and chronic kidney disease with heart failure and stage 1 through stage 4 chronic kidney disease, or unspecified chronic kidney disease; J44.0 Chronic obstructive pulmonary disease with (acute) lower respiratory infection; J44.1 Chronic obstructive pulmonary disease with (acute) exacerbation; Z51.5 Encounter for palliative care; R65.20 Severe sepsis without septic shock; Z66 Do not resuscitate; E87.8 Other disorders of electrolyte and fluid balance, not elsewhere classified; N18.3 Chronic kidney disease, stage 3 (moderate); J20.9 Acute bronchitis, unspecified; E66.9 Obesity, unspecified; K57.90 Diverticulosis of intestine, part unspecified, without perforation or abscess without bleeding; Z96.1 Presence of intraocular lens; K21.9 Gastro-esophageal reflux disease without esophagitis; E78.5 Hyperlipidemia, unspecified; D64.9 Anemia, unspecified; Z79.899 Other long term (current) drug therapy; Z85.3 Personal history of malignant neoplasm of breast; Z87.440 Personal history of urinary (tract) infections; Z98.42 Cataract extraction status, left eye; Z98.41 Cataract extraction status, right eye; Z90.11 Acquired absence of right breast and nipple; Z90.49 Acquired absence of other specified parts of digestive tract; Z87.891 Personal history of nicotine dependence; Z90.710 Acquired absence of both cervix and uterus; Z83.3 Family history of diabetes mellitus; Z82.49 Family history of ischemic heart disease and other diseases of the circulatory system; Z80.3 Family history of malignant neoplasm of breast; Z88.6 Allergy status to analgesic agent; Z88.8 Allergy status to other drugs, medicaments and biological substances; Z68.29 Body mass index [BMI] 29.0-29.9, adult

== ENCOUNTER 2017-04-25 06:40 | Inpatient (IN) | payer OTHER ==
[~2017-04-25] VITALS: Ht 154.9 cm; Wt 88.9 kg
[2017-04-25 06:40] VITALS: BP 199/109
[~2017-04-25 06:40] MED LIST changes: +BIOFREEZE118 ML T; +DUONEB 3 MG/3 ML3 M1 INH; +GLIPIZIDE2.5 MG PO; +LOSARTAN POTAS100 M1 PO
[2017-04-25 07:26] LABS: BASO # 0.1 10*3/uL (0.0-0.1); BASO % 0.4 % (0.0-1.0); EOS # 0.1 10*3/uL (0.0-0.4); EOS % 0.4 % (1.0-4.0); HEMATOCRIT 30.1 % (37.0-47.0); HEMOGLOBIN 8.8 g/dl (12.0-16.0); LYMPH # 1.7 10*3/uL (1.3-4.4); LYMPH % 10.2 % (27.0-41.0); MEAN CELL VOLUME 83.4 fl (81.0-99.0); MEAN CORPUSCULAR HGB 24.4 pg (27.0-31.0); MEAN CORPUSCULAR HGB CONC 29.2 g/dl (33.0-37.0); MEAN PLATELET VOLUME 11.3 fl (9.6-12.3); MONO # 0.7 10*3/uL (0.1-1.0); MONO % 4.4 % (3.0-9.0); NEUT # 13.8 10*3/uL (2.3-7.9); NEUT % 83.7 % (47.0-73.0); PLATELET COUNT AUTOMATED 272 10*3/uL (130-400); RED BLOOD COUNT 3.61 10*6/uL (4.10-5.10); RED CELL DISTRI WIDTH 14.6 % (0-14.5); WHITE BLOOD COUNT 16.5 10*3/uL (4.8-10.8)
--- NOTE | 2017-04-25 07:30 | NUR ---
TOOK REPORT FROM PREVIOUS SHIFT. PATIENT RESTING COMFORTABLY NO NEEDS AT THIS TIME
[2017-04-25 07:35] LABS: ACT PARTIAL THROMBO TIME 22.8 SECONDS (20.8-31.5)
[2017-04-25 07:48] LABS: ALBUMIN 3.1 gm/dl (3.1-4.5); ALKALINE PHOSPHATASE 115 U/L (45-117); BUN 25 mg/dl (7-24); CHLORIDE 103 mmol/L (98-107); CREATININE 1.72 mg/dL (0.55-1.02); LIPASE 297 U/L (73-393); MAGNESIUM 1.7 mg/dL (1.5-2.1); SGOT/AST 17 IU/L (3-35); SGPT/ALT 15 U/L (12-78); SODIUM 139 mmol/L (136-145); TOTAL PROTEIN 7.2 gm/dL (6.4-8.2); TROPONIN I < 0.015 ng/ml (<0.045)
[2017-04-25 08:08] VITALS: BP 137/84
--- NOTE | 2017-04-25 09:36 | NUR ---
Patient comes from the [facility] and can return when medically stable for discharge.
[2017-04-25 10:15] VITALS: BP 132/76
--- NOTE | 2017-04-25 10:20 | NUR ---
A 87, admitted to 4E, under the services of JAQUAN Jimenez DO with a diagnosis of ACUTE RESP FAILURE WITH HYPOXIA, SEPSIS, PNEUMONITIS. Chief complaint is SHORTNESS OF BREATH. Patient arrived via BED from ER. Monitor applied. Initial assessment completed. Vital signs taken and recorded. JAQUAN JIMENEZ DO notified of admission to the unit. Orders received. See assessment for past medical history, medications and allergies. Patient and/or family oriented to unit. [facility] visitation policy reviewed. Clothing/patient valuable form completed. ASSESSMENT COMPLETE. SKIN INTACT WITH NO OPEN WOUNDS. IMMUNIZED FOR FLU 04/11. RECEIVED REPORT FROM IRMA CARTAGENA AT THE [facility]. WAITING ON MEDICATION LIST. SHALINI SPENCER
[2017-04-25 12:00] VITALS: BP 149/80
[2017-04-25] MEDS ORDERED: MILK OF MA400 MG/5 M PO (12:49)
--- NOTE | 2017-04-25 12:52 | NUR ---
PATIENTS HOME MEDICATIONS VERIFIED. DR ELIZONDO NOTIFIED. REQUESTED CALAZIME BARRIER CREAM FOR REDDENED AREAS ON BUTTOCKS.
[2017-04-25 16:00] VITALS: BP 148/70
[2017-04-25 20:44] VITALS: BP 155/63
[2017-04-26] VITALS: BP 159/81
--- NOTE | 2017-04-26 02:09 | NUR ---
DR. CHAVEZ NOTIFIED AT THIS TIME OF PATIENT THROWING TEMPER TANTRUM KICKING A FLAILING ARMS. STATED THAT WE WERE TRYING TO KILL HER AND CHOP HER LEGS OFF. PATIENT HEART RATE 130-140'S AT THIS TIME. BUT CURRENTLY MAINITAING LOW 100'S. DR. CHAVEZ ASKED IF THE HEART RATE HAD BEEN NORMAL UNTIL NOW, THIS NURSE STATED YES IT HAD BEEN RUNNING 80'S-90'S. NO NEW ORDERS RECIEVED. WILL CONTINUE TO MONITOR
--- NOTE | 2017-04-26 06:24 | NUR ---
PATIENT PLACED ON CPM MACHINE AT THIS TIME. FLEXION AT 60
--- NOTE | 2017-04-26 06:45 | NUR ---
PATIENT REFUSING LAB WORK. DR. CHAVEZ NOTIFIED, STATED FOR LAB TO COME AND ATTEMPT TO DRAW PATIENT AGAIN IN AN HOUR OR SO
[2017-04-26 07:31] LABS: BASO % 0.1 % (0.0-1.0); HEMATOCRIT 27.1 % (37.0-47.0); HEMOGLOBIN 8.2 g/dl (12.0-16.0); LYMPH # 0.6 10*3/uL (1.3-4.4); LYMPH % 3.5 % (27.0-41.0); MEAN CELL VOLUME 81.1 fl (81.0-99.0); MEAN CORPUSCULAR HGB 24.6 pg (27.0-31.0); MEAN CORPUSCULAR HGB CONC 30.3 g/dl (33.0-37.0); MEAN PLATELET VOLUME 11.3 fl (9.6-12.3); MONO # 1.1 10*3/uL (0.1-1.0); MONO % 6.2 % (3.0-9.0); NEUT % 89.1 % (47.0-73.0); PLATELET COUNT AUTOMATED 254 10*3/uL (130-400); RED BLOOD COUNT 3.34 10*6/uL (4.10-5.10); RED CELL DISTRI WIDTH 14.6 % (0-14.5)
--- NOTE | 2017-04-26 07:55 | NUR ---
PATIENT AWAKE. VERY CONFUSED AND AGITATED. SPOKE TO DR NESS AND REQUESTED MEDICATION FOR ANXIETY AND ORDER FOR STRAIGHT CATH TO OBTAIN URINE SPECIMEN.
[2017-04-26 07:57] LABS: CREATININE 1.98 mg/dL (0.55-1.02); MAGNESIUM 1.6 mg/dL (1.5-2.1); PHOSPHOROUS 2.3 mg/dL (2.5-4.9); POTASSIUM 4.1 mmol/L (3.5-5.1)
[2017-04-26 08:00] VITALS: BP 152/94
[2017-04-26 11:04] LABS: BILIRUBIN NEGATIVE (NEGATIVE); BLOOD 1+ (NEGATIVE); CLARITY CLOUDY (CLEAR); COLOR YELLOW (YELLOW); GLUCOSE NEGATIVE (NEGATIVE); KETONE NEGATIVE (NEGATIVE); LEUKO ESTERASE 3+ (NEGATIVE); NITRITE NEGATIVE (NEGATIVE); UROBILINOGEN 0.2 E.U./dl (0.2-1.0)
[2017-04-26 11:11] LABS: WBC TNTC wbc/hpf (0-5)
[2017-04-26 11:12] LABS: BACTERIA 2+
[2017-04-26 12:00] VITALS: BP 134/68
[2017-04-26 16:00] VITALS: BP 134/70
[2017-04-26 20:00] VITALS: BP 142/79
[2017-04-27] VITALS: BP 146/74
[2017-04-27 06:07] LABS: BASO % 0.1 % (0.0-1.0); HEMATOCRIT 25.5 % (37.0-47.0); HEMOGLOBIN 7.6 g/dl (12.0-16.0); LYMPH # 0.9 10*3/uL (1.3-4.4); LYMPH % 5.7 % (27.0-41.0); MEAN CELL VOLUME 82.5 fl (81.0-99.0); MEAN CORPUSCULAR HGB 24.6 pg (27.0-31.0); MEAN CORPUSCULAR HGB CONC 29.8 g/dl (33.0-37.0); MEAN PLATELET VOLUME 11.7 fl (9.6-12.3); MONO # 0.8 10*3/uL (0.1-1.0); MONO % 5.4 % (3.0-9.0); NEUT # 13.3 10*3/uL (2.3-7.9); NEUT % 88.1 % (47.0-73.0); PLATELET COUNT AUTOMATED 229 10*3/uL (130-400); RED BLOOD COUNT 3.09 10*6/uL (4.10-5.10); RED CELL DISTRI WIDTH 14.7 % (0-14.5)
[2017-04-27 06:32] LABS: CREATININE 1.92 mg/dL (0.55-1.02); MAGNESIUM 1.9 mg/dL (1.5-2.1); PHOSPHOROUS 3.6 mg/dL (2.5-4.9); POTASSIUM 4.1 mmol/L (3.5-5.1)
[2017-04-27 08:00] VITALS: BP 110/70
--- NOTE | 2017-04-27 08:00 | NUR ---
Patient pleasantly confused. Respirations easy and regular. Vital signs stable. No overt distress. MADISYN JACKSON
[2017-04-27 12:00] VITALS: BP 150/56
[2017-04-27 16:00] VITALS: BP 176/64
[2017-04-27 20:00] VITALS: BP 160/75
[2017-04-28] VITALS: BP 158/71
--- NOTE | 2017-04-28 02:00 | NUR ---
pt yelling out. she had a scary movie on her tv and was upset. TV turned. Pt calmed down. Will monitor
[2017-04-28 06:08] LABS: CREATININE 1.87 mg/dL (0.55-1.02); POTASSIUM 3.8 mmol/L (3.5-5.1)
[2017-04-28 06:14] LABS: BASO % 0.1 % (0.0-1.0); HEMATOCRIT 27.9 % (37.0-47.0); HEMOGLOBIN 8.3 g/dl (12.0-16.0); LYMPH # 1.4 10*3/uL (1.3-4.4); LYMPH % 7.8 % (27.0-41.0); MEAN CELL VOLUME 81.6 fl (81.0-99.0); MEAN CORPUSCULAR HGB 24.3 pg (27.0-31.0); MEAN CORPUSCULAR HGB CONC 29.7 g/dl (33.0-37.0); MEAN PLATELET VOLUME 11.8 fl (9.6-12.3); MONO # 1.2 10*3/uL (0.1-1.0); MONO % 6.7 % (3.0-9.0); NEUT # 14.6 10*3/uL (2.3-7.9); NEUT % 84.2 % (47.0-73.0); PLATELET COUNT AUTOMATED 255 10*3/uL (130-400); RED BLOOD COUNT 3.42 10*6/uL (4.10-5.10); RED CELL DISTRI WIDTH 14.5 % (0-14.5); WHITE BLOOD COUNT 17.4 10*3/uL (4.8-10.8)
[2017-04-28 08:00] VITALS: BP 190/56
--- NOTE | 2017-04-28 08:30 | NUR ---
PT YELLING. BANGING ON TRAY TABLE. DELUSIONAL. CALLED DR ELIZONDO AND REQUESTED SOMETHING FOR AGITATION.
--- NOTE | 2017-04-28 09:15 | NUR ---
Patient resting quietly with no c/o discomfort. Respirations easy and regular. Vital signs stable. No overt distress. SHALINI SPENCER
--- NOTE | 2017-04-28 09:15 | NUR ---
ADMINISTERED IV ATIVAN PER ORDER FOR ANXIETY/AGITATION. WILL MONITOR FOR EFFECTIVENESS. BED LOW. CALL LYNN IN REACH.
--- NOTE | 2017-04-28 11:03 | NUR ---
Faxed updates to the [facility] for review.
[2017-04-28 11:59] VITALS: BP 155/62
[2017-04-28] MEDS ORDERED: PREDNISONE10 MG PO (13:54)
[2017-04-28] MEDS ORDERED: VIBRAMYCIN100 MG PO (13:54)
--- NOTE | 2017-04-28 14:26 | NUR ---
Patient comes from the [facility] and can return when stable for discharge.
--- NOTE | 2017-04-28 15:06 | NUR ---
Patient is discharged back to [facility], transportation scheduled for 4:30 pm with [facility]. MA and nursing notified.
--- NOTE | 2017-04-28 16:00 | NUR ---
CALLED NURSE TO NURSE REPORT TO SCOTT AT [facility]
--- NOTE | 2017-04-28 17:00 | NUR ---
Discharge instructions reviewed with patient/family. Patient receptive and verbalizes understanding. Follow-up care arranged. Written instructions given to patient/family. PT LEFT FLOOR VIA STRETCHER IN THE CARE OF [facility] SHALINI SPENCER
== END 2017-04-28 17:00 | disposition other institution (70) | DRG 871 ==
LOC: ED 06:40 → EDHOLD 08:30 → 4E 08:30
PROVIDERS: Emergency Medicine; Internal Medicine; Student in an Organized Health Care Education/Training Program; ADMIT Internal Medicine
DX: A41.9 Sepsis, unspecified organism (principal); J18.9 Pneumonia, unspecified organism; J96.01 Acute respiratory failure with hypoxia; I50.33 Acute on chronic diastolic (congestive) heart failure; N17.9 Acute kidney failure, unspecified; I13.0 Hypertensive heart and chronic kidney disease with heart failure and stage 1 through stage 4 chronic kidney disease, or unspecified chronic kidney disease; E11.22 Type 2 diabetes mellitus with diabetic chronic kidney disease; E11.65 Type 2 diabetes mellitus with hyperglycemia; Z68.41 Body mass index [BMI] 40.0-44.9, adult; J44.0 Chronic obstructive pulmonary disease with (acute) lower respiratory infection; J84.10 Pulmonary fibrosis, unspecified; Z51.5 Encounter for palliative care; D64.9 Anemia, unspecified; N18.3 Chronic kidney disease, stage 3 (moderate); Z66 Do not resuscitate; K21.9 Gastro-esophageal reflux disease without esophagitis; E66.9 Obesity, unspecified; E78.5 Hyperlipidemia, unspecified; K57.90 Diverticulosis of intestine, part unspecified, without perforation or abscess without bleeding; Z80.3 Family history of malignant neoplasm of breast; Z88.8 Allergy status to other drugs, medicaments and biological substances; Z79.899 Other long term (current) drug therapy; Z85.3 Personal history of malignant neoplasm of breast; Z98.41 Cataract extraction status, right eye; Z98.42 Cataract extraction status, left eye; Z90.11 Acquired absence of right breast and nipple; Z90.710 Acquired absence of both cervix and uterus; Z90.49 Acquired absence of other specified parts of digestive tract; Z82.49 Family history of ischemic heart disease and other diseases of the circulatory system; Z83.3 Family history of diabetes mellitus

== ENCOUNTER 2017-07-17 12:03 | Inpatient (IN) | payer OTHER ==
[~2017-07-17] VITALS: Ht 154.9 cm; Wt 85.7 kg
--- NOTE | ~2017-07-17 | PR ---
[place], [place] PROGRESS NOTE [id number] UN[facility] #: [id number] ROOM: 314 DOCTOR: Rose LEE,GRIESL BIRTHDATE: [birth year] DOS: 07/20/2017 SUBJECTIVE: Patient seen and spoke with the staff. Per staff, patient did not sleep last night, stayed up and talked to herself. When I went to see the patient, patient was half asleep. She was in a Brigette chair. She just opened her eyes and told me that she is doing okay, but then fell back to sleep again. MENTAL STATUS EXAMINATION: Patient was pleasant, but sleepy. Described her mood as "okay." Affect, kind of flat and restricted, not able to do full mental status examination as she fell back to sleep again. ASSESSMENT: 1. Major depressive disorder, recurrent with psychotic feature. 2. Brief psychotic episodes. PLAN: 1. Continue current medication and care. 2. We will send a UA. 3. We will give her trazodone at bedtime p.r.n. for insomnia. GRISEL LEE MD CM:BROOKE 13 46 Rose LEE 07/20/172346 interface
--- NOTE | ~2017-07-17 | PR ---
[place], [place] PROGRESS NOTE NAME: [facility] [id number] UNIT #: [id number] ROOM: 314 DOCTOR: Rose LEE,GRISEL BIRTHDATE: [birth year] DOS: 07/19/2017 PSYCHIATRIC PROGRESS NOTE SUBJECTIVE: The patient seen and spoke with the staff. Per staff, the patient is still paranoid and delusional. Med compliant. No behavioral problems or issues. The patient was pleasant, cooperative. She was in a Brigette chair. She said that she is feeling good. Reported good sleep and appetite, wanted to go home, did not express any concern. MENTAL STATUS EXAMINATION: Pleasant, cooperative, described her mood as "okay." Affect, mood congruent. Thought processes disorganized at times. She denied auditory or visual hallucination. She is still delusional and paranoid. Denied suicidal ideation, intent or plan. She also denied homicidal ideation, intent or plan. ASSESSMENT: 1. Major depressive disorder, recurrent with psychotic feature. 2. Brief psychotic disorder. PLAN: 1. Continue current medications and care. 2. Continue redirection. 3. Supportive care. 4. Rob milieu. 5. Final medication management and discharge plan with the regular team. GRISEL LEE MD CM:PNTRANS 2106 Rose LEE 07/20/17 0315 interface
--- NOTE | ~2017-07-17 | WRIGHTHP ---
[place], [place] PATIENT HISTORY AND PHYSICAL EXAM [id number] UNIT #: [id number] ROOM: 314 DOCTOR: YOLY MCKEON MD BIRTHDATE: [birth year] DOS: 07/18/2017 CHIEF COMPLAINT: "I don't want to eat. I am anyway. I don't need to eat." HISTORY OF PRESENT ILLNESS: This is an 87-year-old white female who is a resident of the [facility]. She is admitted to the [facility] due to increasing depression with psychotic symptomatology. The patient has become increasingly confused and has been acting out. Her behaviors worsened in the late afternoon early evening when she sundowns and becomes physically and verbally combative. Most recently, she has been stating that she has been talking to [facility]. She is refusing to eat or take medications because they are not directly from [facility]. She has been verbalizing a wish to and has become noncompliant with all aspects of her care. Because of the severity of her symptomatology and the fact that she is putting herself and others at risk for harm, she is admitted now to rule out any organic factors to attempt to stabilize on medication, returning back to the [facility] or an alternative facility when psychiatrically stable. PAST MEDICAL HISTORY: Remarkable for congestive heart failure, chronic kidney disease stage 3, diabetes, diverticulosis, GERD, hiatal hernia, hyperlipidemia, hypertension, obesity, pulmonary fibrosis, radial nerve palsy and a history of breast cancer. MENTAL STATUS: The patient is alert and oriented to person, possibly place, but not time. Mood is overwhelmingly depressed. She is very nihilistic in her thinking and states that she does not need to eat because she is already. She does not want any intervention because she is not worth the intervention. She is grossly psychotic as well and delusional. She was very irritable and on edge as well with rather terse short responses to me for the most part. She does at times process slowly and short term memory is quite poor. She was not able to tell me how long she has been here and did not remember the [facility]. DIAGNOSIS: Major depression, recurrent with psychotic features. PLAN: I have already started her on low dose Risperdal; however, she does seem to be tolerating it well with no sedation or somnolence, so I will go ahead and increase the dose of Risperdal to 0.5 mg in the morning and 1 mg at bedtime to decrease the delusions and the nihilistic thoughts. I will add Remeron 15 mg at bedtime to combat the depression, aid sleep and improve appetite. We will engage her in individual and rico activities, returning then to the least restrictive environment when psychiatrically stable. [place], [place] PATIENT HISTORY AND PHYSICAL EXAM NAME: RODRIGO ORTEGA UNIT #: [id number] ROOM: [facility] DOCTOR: YOLY MCKEON MD BIRTHDATE: [birth year] YOLY MCKEON MD CM:HISPHYS:PATIENT HISTORY AND PHYSICAL EXAMINATION 9 0 YOLY MCKEON MD 07/18/17900 interface
[~2017-07-17 12:03] MED LIST changes: +MILK OF MA400 MG/5 M PO; +VIBRAMYCIN100 MG PO
[2017-07-17] MEDS ORDERED: BUSPAR15 MG PO (12:48)
[2017-07-17] MEDS ORDERED: ARTIFICIAL TEAR15 M1 OPH (12:50)
[2017-07-17] MEDS ORDERED: ROBITUSSIN DM 101 OZ PO (12:51)
[2017-07-17] MEDS ORDERED: VISTARIL50 MG PO (12:52)
[2017-07-17 14:21] VITALS: BP 141/82
[2017-07-17 20:09] VITALS: BP 156/72
[2017-07-18 07:07] LABS: ALBUMIN 2.7 gm/dl (3.1-4.5); CREATININE 1.97 mg/dL (0.55-1.02); POTASSIUM 4.6 mmol/L (3.5-5.1)
[2017-07-18 07:28] LABS: THYROID STIM HORMONE (HS) 2.81 uIU/ml (0.358-4.75)
[2017-07-18 07:56] VITALS: BP 148/70
[2017-07-18 09:19] LABS: BASO % 0.3 % (0.0-1.0); EOS # 0.1 10*3/uL (0.0-0.4); EOS % 1.6 % (1.0-4.0); HEMATOCRIT 23.5 % (37.0-47.0); HEMOGLOBIN 6.5 g/dl (12.0-16.0); LYMPH # 0.6 10*3/uL (1.3-4.4); LYMPH % 8.5 % (27.0-41.0); MEAN CELL VOLUME 77.3 fl (81.0-99.0); MEAN CORPUSCULAR HGB 21.4 pg (27.0-31.0); MEAN CORPUSCULAR HGB CONC 27.7 g/dl (33.0-37.0); MEAN PLATELET VOLUME 11.3 fl (9.6-12.3); MONO # 0.5 10*3/uL (0.1-1.0); MONO % 7.6 % (3.0-9.0); NEUT # 5.3 10*3/uL (2.3-7.9); NEUT % 81.5 % (47.0-73.0); PLATELET COUNT AUTOMATED 186 10*3/uL (130-400); RED BLOOD COUNT 3.04 10*6/uL (4.10-5.10); RED CELL DISTRI WIDTH 16.3 % (0-14.5); WHITE BLOOD COUNT 6.4 10*3/uL (4.8-10.8)
[2017-07-18 14:14] LABS: VITAMIN D, 25-HYDROXY 32.9 ng/mL (30-100)
[2017-07-18 20:00] VITALS: BP 150/68
[2017-07-19 07:55] VITALS: BP 142/70
[2017-07-19 20:00] VITALS: BP 148/86
[2017-07-20 07:44] VITALS: BP 146/84
[2017-07-20 17:49] LABS: BASO # 0.1 10*3/uL (0.0-0.1); BASO % 0.5 % (0.0-1.0); EOS # 0.2 10*3/uL (0.0-0.4); EOS % 2.6 % (1.0-4.0); HEMATOCRIT 25.5 % (37.0-47.0); HEMOGLOBIN 7.2 g/dl (12.0-16.0); LYMPH # 1.2 10*3/uL (1.3-4.4); LYMPH % 13.2 % (27.0-41.0); MEAN CELL VOLUME 75.4 fl (81.0-99.0); MEAN CORPUSCULAR HGB 21.3 pg (27.0-31.0); MEAN CORPUSCULAR HGB CONC 28.2 g/dl (33.0-37.0); MEAN PLATELET VOLUME 10.9 fl (9.6-12.3); MONO # 0.9 10*3/uL (0.1-1.0); MONO % 9.4 % (3.0-9.0); NEUT # 6.8 10*3/uL (2.3-7.9); PLATELET COUNT AUTOMATED 256 10*3/uL (130-400); RED BLOOD COUNT 3.38 10*6/uL (4.10-5.10); RED CELL DISTRI WIDTH 16.3 % (0-14.5); WHITE BLOOD COUNT 9.2 10*3/uL (4.8-10.8)
[2017-07-20 18:09] LABS: CREATININE 1.71 mg/dL (0.55-1.02); POTASSIUM 4.2 mmol/L (3.5-5.1); TOTAL PROTEIN 6.7 gm/dL (6.4-8.2)
[2017-07-20 18:10] LABS: TROPONIN I 0.016 ng/ml (<0.045)
[2017-07-20 18:49] LABS: BILIRUBIN NEGATIVE (NEGATIVE); BLOOD TRACE-INTACT (NEGATIVE); CLARITY SL CLOUDY (CLEAR); COLOR YELLOW (YELLOW); GLUCOSE NEGATIVE (NEGATIVE); KETONE NEGATIVE (NEGATIVE); LEUKO ESTERASE 3+ (NEGATIVE); NITRITE POSITIVE (NEGATIVE); PH 8.5 (5.0-9.0); UROBILINOGEN 0.2 E.U./dl (0.2-1.0)
[2017-07-20] MEDS ORDERED: NYSTOP60 GM T (18:51)
[2017-07-20] MEDS ORDERED: REMEDY CALAZIME4 GM T (18:51)
[2017-07-20 19:03] LABS: BACTERIA 3+
== END 2017-07-20 18:55 | disposition short-term general hospital (02) | DRG 885 ==
LOC: 3N 12:03
PROVIDERS: Family Medicine; Psychiatry & Neurology Psychiatry
DX: F33.3 Major depressive disorder, recurrent, severe with psychotic symptoms (principal); E11.22 Type 2 diabetes mellitus with diabetic chronic kidney disease; E11.65 Type 2 diabetes mellitus with hyperglycemia; I50.32 Chronic diastolic (congestive) heart failure; I13.0 Hypertensive heart and chronic kidney disease with heart failure and stage 1 through stage 4 chronic kidney disease, or unspecified chronic kidney disease; F23 Brief psychotic disorder; N18.3 Chronic kidney disease, stage 3 (moderate); J84.10 Pulmonary fibrosis, unspecified; K57.90 Diverticulosis of intestine, part unspecified, without perforation or abscess without bleeding; K21.9 Gastro-esophageal reflux disease without esophagitis; E78.5 Hyperlipidemia, unspecified; E66.9 Obesity, unspecified; Z87.891 Personal history of nicotine dependence; Z68.35 Body mass index [BMI] 35.0-35.9, adult; Z85.3 Personal history of malignant neoplasm of breast; Z90.49 Acquired absence of other specified parts of digestive tract; Z90.710 Acquired absence of both cervix and uterus; Z88.8 Allergy status to other drugs, medicaments and biological substances; Z82.49 Family history of ischemic heart disease and other diseases of the circulatory system; Z83.3 Family history of diabetes mellitus; Z80.3 Family history of malignant neoplasm of breast

== ENCOUNTER 2017-07-17 12:32 | Emergency (ER) | payer OTHER ==
[~2017-07-17] VITALS: Ht 154.9 cm; Wt 77.1 kg
[2017-07-17 12:48] VITALS: BP 156/56
[2017-07-17] MEDS ORDERED: BUSPAR15 MG PO (12:48)
[2017-07-17] MEDS ORDERED: ARTIFICIAL TEAR15 M1 OPH (12:50)
[2017-07-17] MEDS ORDERED: ROBITUSSIN DM 101 OZ PO (12:51)
[2017-07-17] MEDS ORDERED: VISTARIL50 MG PO (12:52)
== END 2017-07-17 13:30 | disposition home health service (06) ==
LOC: ED 12:32
DX: F29 Unspecified psychosis not due to a substance or known physiological condition (principal); I13.0 Hypertensive heart and chronic kidney disease with heart failure and stage 1 through stage 4 chronic kidney disease, or unspecified chronic kidney disease; E11.22 Type 2 diabetes mellitus with diabetic chronic kidney disease; I50.33 Acute on chronic diastolic (congestive) heart failure; N18.3 Chronic kidney disease, stage 3 (moderate); K21.9 Gastro-esophageal reflux disease without esophagitis; E78.5 Hyperlipidemia, unspecified; E66.9 Obesity, unspecified; Z68.39 Body mass index [BMI] 39.0-39.9, adult; Z79.899 Other long term (current) drug therapy; Z88.8 Allergy status to other drugs, medicaments and biological substances; Z87.891 Personal history of nicotine dependence

== ENCOUNTER 2017-07-20 18:46 | Inpatient (IN) | payer OTHER ==
[~2017-07-20] VITALS: Ht 154.9 cm; Wt 85.7 kg
--- NOTE | ~2017-07-20 | CON ---
[place], [place] REPORT OF CONSULTATION NAME: RODRIGO ORTEGA UNIT #: [id number] ROOM: [facility] DOCTOR: RENATE MENSAH MD BIRTHDATE: [birth year] DOS: 07/20/2017 HISTORY OF PRESENT ILLNESS: I was called to a rapid response on the 4th floor concerning this patient. She was found unresponsive by the nurses. She had been transferred down from the behavioral unit for evaluation of similar symptoms and workup was in progress. There was no information concerning the episode on the behavioral unit, but this patient was found unresponsive by the nurse who called the rapid response team. The patient was unable to provide any information and was unresponsive to all forms of stimuli. Her pupils were small and equal and reactive to light. Some fine tremors were noted to the hands and feet. Skin was pale, warm and dry. Her oral mucosa was slightly dry. The nurses did report that she had not been eating very much on the behavioral unit and has not done well here in the 4th floor either. It was unclear to me if there were any other issues surrounding this lady's transfer from the behavioral unit. I have read through the behavior unit staff reports and noted that the patient's hemoglobin had been 6.8, but today was 7.2 grams. The chest x-ray done earlier showed no active disease. CT scan of the brain showed a possible normal pressure hydrocephalus. PHYSICAL EXAMINATION: GENERAL: On exam remained unresponsive. NECK: Supple. CHEST: Symmetrical. LUNGS: Clear bilaterally. HEART: Regular and rhythmic and there were no murmurs, gallops, rubs or clicks appreciated. ABDOMEN: Slightly rounded, soft, no masses, no elicited tenderness. Bowel sounds were normal. EXTREMITIES: No signs of injury. The tremors were noted and there was no edema. NEUROLOGIC: There were no lateralizing neurological signs; however, the patient did remain unresponsive and her reflexes were slightly hyporeflexic. IMPRESSION AND RECOMMENDATIONS: I recommended the patient have a repeat H and H, BMP, magnesium, calcium, EKG, serum troponin, single view chest x-ray to rule out aspiration and to transfer the patient to the ICU. The impression was possible seizure, change in mental status, low hemoglobin. The POA was contacted and advised of the patient's status and the POA wanted to proceed with the DNR-CC arrest code status. The following tests were ordered: Hemoglobin, hematocrit, type and screen, 2 units of packed red cells, 12-lead EKG. Intravenous normal saline at 100 mL an hour. The attending physician rn lactation consultant for this patient was notified and the surgery resident was advised of the orders. The patient will be reevaluated at the request of the medical team. [place], [place] REPORT OF CONSULTATION NAME: RODRIGO ORTEGA UNIT #: [id number] ROOM: [facility] DOCTOR: RENATE MENSAH MD BIRTHDATE: [birth year] RENATE MENSAH MD CM:CONSTR:REPORT OF CONSULTATION 1227 07/23/17 0319 interface
[~2017-07-20 18:46] MED LIST changes: +ARTIFICIAL TEAR15 M1 OPH; +BUSPAR15 MG PO; +ROBITUSSIN DM 101 OZ PO; +VISTARIL50 MG PO
[2017-07-20] MEDS ORDERED: REMEDY CALAZIME4 GM T (18:51)
[2017-07-20] MEDS ORDERED: NYSTOP60 GM T (18:51)
[2017-07-20 19:20] VITALS: BP 164/82
[2017-07-20 22:04] LABS: HEMATOCRIT 23.5 % (37.0-47.0); HEMOGLOBIN 6.6 g/dl (12.0-16.0)
[2017-07-20 22:20] LABS: CREATININE 1.76 mg/dL (0.55-1.02); POTASSIUM 3.9 mmol/L (3.5-5.1); TROPONIN I 0.016 ng/ml (<0.045)
[2017-07-20 23:00] VITALS: BP 174/55
[2017-07-20 23:15] VITALS: BP 174/55
[2017-07-20 23:30] VITALS: BP 151/48
[2017-07-20 23:45] VITALS: BP 162/54
[2017-07-21] VITALS: BP 123/42
[2017-07-21 00:30] VITALS: BP 139/52
[2017-07-21 01:00] VITALS: BP 163/55
== END 2017-07-21 01:25 | disposition short-term general hospital (02) | DRG 812 ==
LOC: 4E 18:46 → ICCU 22:04
PROVIDERS: Emergency Medicine Emergency Medical Services
PROC: 30233N0 Transfusion of Autologous Red Blood Cells into Peripheral Vein, Percutaneous Approach (ICD-10-PCS; principal; 2017-07-20)
DX: D64.9 Anemia, unspecified (principal); R56.9 Unspecified convulsions; Z51.5 Encounter for palliative care; Z66 Do not resuscitate

== ENCOUNTER 2017-07-25 08:28 | Inpatient (IN) | payer OTHER ==
[~2017-07-25] VITALS: Ht 144.7 cm; Wt 80.4 kg
[2017-07-25] VITALS (16 sets, daily range): BP systolic 140–177; BP diastolic 50–78
--- NOTE | ~2017-07-25 | EKG ---
[place], [place] ELECTROCARDIOGRAM REPORT NAME: RODRIGO ORTEGA UNIT #: [id number] ROOM: [facility] DOCTOR: CATALINA COE,JULIETH BIRTHDATE: [birth year] DOS: 07/25/2017 TIME: 8:57. IMPRESSION: 1. Sinus rhythm. 2. Nonspecific ST-T changes. 3. Baseline artifact. 4. Normal QT interval. JULIETH ARNOLD MD CM:EKGRPT:ELECTROCARDIOGRAM REPORT 1431 2228 JULIETH ARNOLD MD
[~2017-07-25 08:28] MED LIST changes: +NYSTOP60 GM T; +REMEDY CALAZIME4 GM T
[2017-07-25 10:17] LABS: BILIRUBIN 1+ (NEGATIVE); BLOOD NEGATIVE (NEGATIVE); CLARITY SL CLOUDY (CLEAR); COLOR YELLOW (YELLOW); GLUCOSE NEGATIVE (NEGATIVE); KETONE TRACE (NEGATIVE); LEUKO ESTERASE NEGATIVE (NEGATIVE); NITRITE NEGATIVE (NEGATIVE); PH 5.5 (5.0-9.0); SPECIFIC GRAVITY 1.025 (1.005-1.030); UROBILINOGEN 0.2 E.U./dl (0.2-1.0)
[2017-07-25 10:31] LABS: BACTERIA 2+
[2017-07-25] MEDS ORDERED: HALDOL0.5 MG PO (13:50)
[2017-07-25] MEDS ORDERED: BUSPIRONE HCL15 MG PO (13:50)
[2017-07-25] MEDS ORDERED: NORVASC5 MG PO (13:52)
[2017-07-26] VITALS: BP 144/59
[2017-07-26 07:15] LABS: HEMOGLOBIN 7.4 g/dl (12.0-16.0); LYMPH # 0.4 10*3/uL (1.3-4.4); LYMPH % 5.4 % (27.0-41.0); MEAN CELL VOLUME 78.6 fl (81.0-99.0); MEAN CORPUSCULAR HGB 23.3 pg (27.0-31.0); MEAN CORPUSCULAR HGB CONC 29.6 g/dl (33.0-37.0); MEAN PLATELET VOLUME 11.6 fl (9.6-12.3); MONO # 0.3 10*3/uL (0.1-1.0); MONO % 4.1 % (3.0-9.0); NEUT # 6.6 10*3/uL (2.3-7.9); NEUT % 89.5 % (47.0-73.0); PLATELET COUNT AUTOMATED 209 10*3/uL (130-400); RED BLOOD COUNT 3.18 10*6/uL (4.10-5.10); RED CELL DISTRI WIDTH 18.6 % (0-14.5); WHITE BLOOD COUNT 7.4 10*3/uL (4.8-10.8)
[2017-07-26 07:44] LABS: ACT PARTIAL THROMBO TIME 23.4 SECONDS (20.8-31.5); INTERNATIONAL NORM RATIO 1.2 (2.0-3.5)
[2017-07-26 07:45] LABS: ALBUMIN 2.8 gm/dl (3.1-4.5); CREATININE 2.11 mg/dL (0.55-1.02); FREE T4 1.16 ng/dl (0.76-1.46); PHOSPHOROUS 2.9 mg/dL (2.5-4.9); TOTAL PROTEIN 6.3 gm/dL (6.4-8.2)
[2017-07-26 07:50] LABS: THYROID STIM HORMONE (HS) 1.11 uIU/ml (0.358-4.75)
[2017-07-26 08:00] VITALS: BP 166/67
[2017-07-26 12:00] VITALS: BP 153/63
[2017-07-26 16:00] VITALS: BP 154/56
[2017-07-27] VITALS: BP 160/80
[2017-07-27 06:57] LABS: HEMATOCRIT 26.7 % (37.0-47.0); HEMOGLOBIN 7.8 g/dl (12.0-16.0); MEAN CORPUSCULAR HGB 23.1 pg (27.0-31.0); MEAN CORPUSCULAR HGB CONC 29.2 g/dl (33.0-37.0); MEAN PLATELET VOLUME 11.5 fl (9.6-12.3); PLATELET COUNT AUTOMATED 253 10*3/uL (130-400); RED BLOOD COUNT 3.38 10*6/uL (4.10-5.10); RED CELL DISTRI WIDTH 19.1 % (0-14.5); WHITE BLOOD COUNT 13.4 10*3/uL (4.8-10.8)
[2017-07-27 07:16] LABS: CREATININE 2.46 mg/dL (0.55-1.02)
[2017-07-27 07:29] LABS: PLATELET SUFFICIENCY NORMAL (NORMAL); POLYCHROMASIA SLIGHT; TOTAL CELLS COUNTED 100 #CELLS
[2017-07-27 08:00] VITALS: BP 186/68
[2017-07-27 12:00] VITALS: BP 149/53
[2017-07-27 15:58] VITALS: BP 147/44
[2017-07-27 20:00] VITALS: BP 134/50
[2017-07-28] VITALS: BP 146/53
[2017-07-28 07:09] LABS: HEMATOCRIT 26.8 % (37.0-47.0); HEMOGLOBIN 7.8 g/dl (12.0-16.0); LYMPH # 0.6 10*3/uL (1.3-4.4); LYMPH % 5.3 % (27.0-41.0); MEAN CORPUSCULAR HGB 23.3 pg (27.0-31.0); MEAN CORPUSCULAR HGB CONC 29.1 g/dl (33.0-37.0); MONO # 0.9 10*3/uL (0.1-1.0); MONO % 7.8 % (3.0-9.0); NEUT # 9.7 10*3/uL (2.3-7.9); NEUT % 86.3 % (47.0-73.0); PLATELET COUNT AUTOMATED 245 10*3/uL (130-400); RED BLOOD COUNT 3.35 10*6/uL (4.10-5.10); RED CELL DISTRI WIDTH 18.8 % (0-14.5); WHITE BLOOD COUNT 11.2 10*3/uL (4.8-10.8)
[2017-07-28 07:48] LABS: CREATININE 2.38 mg/dL (0.55-1.02)
[2017-07-28 08:00] VITALS: BP 159/66
[2017-07-28 12:00] VITALS: BP 135/47
[2017-07-28 16:00] VITALS: BP 133/46
[2017-07-28 20:00] VITALS: BP 132/46
[2017-07-29] VITALS: BP 133/56
[2017-07-29 07:32] LABS: HEMOGLOBIN 7.6 g/dl (12.0-16.0); MEAN CELL VOLUME 78.5 fl (81.0-99.0); MEAN CORPUSCULAR HGB CONC 29.2 g/dl (33.0-37.0); MEAN PLATELET VOLUME 11.2 fl (9.6-12.3); PLATELET COUNT AUTOMATED 197 10*3/uL (130-400); RED BLOOD COUNT 3.31 10*6/uL (4.10-5.10); RED CELL DISTRI WIDTH 18.6 % (0-14.5); WHITE BLOOD COUNT 8.2 10*3/uL (4.8-10.8)
[2017-07-29 07:56] LABS: POTASSIUM 3.7 mmol/L (3.5-5.1)
[2017-07-29 07:58] LABS: CREATININE 2.27 mg/dL (0.55-1.02); PHOSPHOROUS 3.7 mg/dL (2.5-4.9)
[2017-07-29 08:00] VITALS: BP 172/51
[2017-07-29 08:05] LABS: PLATELET SUFFICIENCY NORMAL (NORMAL); TOTAL CELLS COUNTED 100 #CELLS
[2017-07-29 12:00] VITALS: BP 159/54
[2017-07-29 16:00] VITALS: BP 150/83
[2017-07-30] VITALS: BP 134/59
[2017-07-30 07:16] LABS: ALBUMIN 2.9 gm/dl (3.1-4.5); CREATININE 2.19 mg/dL (0.55-1.02); POTASSIUM 3.8 mmol/L (3.5-5.1)
[2017-07-30 08:00] VITALS: BP 149/96
[2017-07-30 12:00] VITALS: BP 146/86
[2017-07-30] MEDS ORDERED: LEVOFLOXACIN500 MG PO (12:05)
[2017-07-30] MEDS ORDERED: FUROSEMIDE40 MG PO (12:07)
[2017-07-30] MEDS ORDERED: PREDNISONE10 MG PO (12:07)
== END 2017-07-30 13:44 | disposition home or self-care (01) | DRG 871 ==
LOC: ED 08:28 → 5E 11:01 → EDHOLD 11:01 → 5E 11:31
PROVIDERS: Emergency Medicine; Family Medicine; Internal Medicine; Internal Medicine Nephrology
DX: A41.9 Sepsis, unspecified organism (principal); I50.33 Acute on chronic diastolic (congestive) heart failure; J96.01 Acute respiratory failure with hypoxia; E43 Unspecified severe protein-calorie malnutrition; N17.0 Acute kidney failure with tubular necrosis; J18.9 Pneumonia, unspecified organism; G93.41 Metabolic encephalopathy; E11.65 Type 2 diabetes mellitus with hyperglycemia; E11.22 Type 2 diabetes mellitus with diabetic chronic kidney disease; J44.0 Chronic obstructive pulmonary disease with (acute) lower respiratory infection; I13.0 Hypertensive heart and chronic kidney disease with heart failure and stage 1 through stage 4 chronic kidney disease, or unspecified chronic kidney disease; J44.1 Chronic obstructive pulmonary disease with (acute) exacerbation; N18.4 Chronic kidney disease, stage 4 (severe); T38.0X5A Adverse effect of glucocorticoids and synthetic analogues, initial encounter; J84.10 Pulmonary fibrosis, unspecified; Z66 Do not resuscitate; Z51.5 Encounter for palliative care; R65.20 Severe sepsis without septic shock; D50.9 Iron deficiency anemia, unspecified; K21.9 Gastro-esophageal reflux disease without esophagitis; E66.01 Morbid (severe) obesity due to excess calories; E78.5 Hyperlipidemia, unspecified; K44.9 Diaphragmatic hernia without obstruction or gangrene; K57.90 Diverticulosis of intestine, part unspecified, without perforation or abscess without bleeding; F03.90 Unspecified dementia, unspecified severity, without behavioral disturbance, psychotic disturbance, mood disturbance, and anxiety; Z88.6 Allergy status to analgesic agent; Z85.3 Personal history of malignant neoplasm of breast; Z90.10 Acquired absence of unspecified breast and nipple; Z90.49 Acquired absence of other specified parts of digestive tract; Z90.710 Acquired absence of both cervix and uterus; Z98.49 Cataract extraction status, unspecified eye; Z87.891 Personal history of nicotine dependence; Z82.49 Family history of ischemic heart disease and other diseases of the circulatory system; Z83.3 Family history of diabetes mellitus; Z80.3 Family history of malignant neoplasm of breast; Z79.899 Other long term (current) drug therapy; Y92.89 Other specified places as the place of occurrence of the external cause; Z68.34 Body mass index [BMI] 34.0-34.9, adult

== ENCOUNTER → 2017-08-12 | Outpatient (CLI) | payer OTHER ==
[~2017-08-12] MED LIST changes: +BUSPIRONE HCL15 MG PO; +FUROSEMIDE40 MG PO; +HALDOL0.5 MG PO
--- NOTE | ~2017-08-12 | SLPIE ---
[place], [place] RETAIL GREETER INITIAL EVALUATION NAME: RODRIGO ORTEGA UNIT #: [id number] ROOM: DOCTOR: LUBNA SHERWOOD FACP, MD Speech Language Pathology Initial Evaluation Page 1 1 of Patient Name: RODRIGO ORTEGA Date: 08/12/2017 02:53 PM : 1930 SOC Date: 08/12/2017 [facility]: [facility] Provider #: [id number] Treating Clinician: HERNÁN Tao-RETAIL GREETER Referring Physician: LUBNA HOPE Patient Information Address: [address] [place] [address] Physician: LUBNA HOPE Physician #: City, State, Zip: [place], [place] [address] Occupation: Unknown # of Approved Visits: 0 Gender: Female Medicaid #: [id number] Home Care Liaison: OSMIN SORIANO Medicare #: [id number] Rehabilitation Information / History Onset Date Code Description Primary Diagnosis: 07/14/2014 A000.00 DIAGNOSIS FROM INTERFACE NOT FOUND IN [facility] TABLE Subjective Comments: Initial evaluation created to initiate the electronic medical record. Please see WhoSay for details. Rehabilitation Information / History Clinical Findings Functional Goals Functional Limitation Reporting Swallowing G8996 - Swallowing functional limitation, current status at therapy episode outset and at reporting intervals Current Status: CI - At least 1 percent but less than 20 percent impaired, limited or restricted G8997 - Swallowing functional limitation, projected goal status, at therapy episode outset, at reporting intervals, and at discharge or to end reporting Goal Status: CI - At least 1 percent but less than 20 percent impaired, limited or restricted G8998 - Swallowing functional limitation, discharge status, at discharge from therapy or to end reporting Discharge Status: CI - At least 1 percent but less than 20 percent impaired, limited or restricted 08/12/2017 2:53:52 PM HERNÁN Tao-LOBITO Date/Time [place], [place] RETAIL GREETER INITIAL EVALUATION NAME: RODRIGO ORTEGA UNIT #: [id number] ROOM: DOCTOR: LUBNA SHERWOOD FACP, MD [facility] License #: [id number] CM:SLPIE 1458 1457 [facility]
--- NOTE | ~2017-08-12 | SLPPN ---
[place], [place] [employer] PROGRESS NOTE NAME: RODRIGO ORTEGA UNIT #: [id number] ROOM: DOCTOR: CHRISTIE HOPE MD,LUBNA Speech Language Pathology Treatment Note Page 1 1 of Patient Name: RODRIGO ORTEGA Date: 08/12/2017 02:53 PM : 1930 SOC Date: 08/12/2017 Provider: [facility] Provider #: [id number] Treating Clinician: HERNÁN Tao-[employer] Referring Physician: LUBNA HOPE Onset Date Description Code Primary Diagnosis: 07/14/2014 A000.00 DIAGNOSIS FROM INTERFACE NOT FOUND IN [facility] TABLE Time In: 02:00 PM Time Out: 03:00 PM [employer] Interventions and CPT Codes Consisted of: CPT Code Modifiers Minutes Units MOTION FLUOROSCOPY/SWALLOW 88681 60 1 Total Minutes: 60 Total Timed Minutes: 0 Total Untimed Minutes: 60 Total Units: 1 Total Timed Units: 0 Total Untimed Units: 1 08/12/2017 2:54:48 PM NAYELI Tao Date/Time State License #: [id number] CM:JANE 1458 1458 IS THERAPY [facility]
--- NOTE | ~2017-08-12 | SLPPOC ---
[place], [place] PASSENGER RATE CLERK PLAN OF CARE NAME: RODRIGO ORTEGA UNIT #: [id number] ROOM: DOCTOR: LUBNA SHERWOOD FACP, MD Speech Language Pathology Plan of Care Page 1 1 (Initial Evaluation) of Patient Name: RODRIGO ORTEGA Date: 08/12/2017 02:53 PM : 1930 SOC Date: 08/12/2017 Provider: [facility] Provider #: [id number] Treating Clinician: HERNÁN Tao-PASSENGER RATE CLERK Referring Physician: LUBNA HOPE Medicare #: [id number] Visits From SOC: Medicaid #: [id number] Onset Date Description Code Primary Diagnosis: 07/14/2014 A000.00 DIAGNOSIS FROM INTERFACE NOT FOUND IN [facility] TABLE Subjective Comments: Initial evaluation created to initiate the electronic medical record. Please see Retroficiency for details. Initial Level Goals Functional Limitation Reporting Swallowing G8996 - Swallowing functional limitation, current status at therapy episode outset and at reporting intervals Current Status: CI - At least 1 percent but less than 20 percent impaired, limited or restricted G8997 - Swallowing functional limitation, projected goal status, at therapy episode outset, at reporting intervals, and at discharge or to end reporting Goal Status: CI - At least 1 percent but less than 20 percent impaired, limited or restricted G8998 - Swallowing functional limitation, discharge status, at discharge from therapy or to end reporting Discharge Status: CI - At least 1 percent but less than 20 percent impaired, limited or restricted 08/12/2017 2:53:52 PM LUBNA HOPE Date/Time NAYELI Tao Date I certify the need for these services furnished under this plan of treatment while under my care. State License #: [id number] CM:SLPPOC 1458 1458 IS THERAPY [facility]
--- NOTE | ~2017-08-12 | PROC NOTE ---
[place], [place] PROCEDURE NOTE NAME: RODRIGO ORTEGA UNIT #: [id number] ROOM: DOCTOR: RODRIGUEZ GARCIA BIRTHDATE: [birth year] DOS: 08/12/2017 Modified Barium Swallow PHYSICIAN: Dr. Soriano. RADIOLOGIST: Dr. Reynolds. BACKGROUND INFORMATION: The patient an 87-year-old female was seen for modified barium swallow. This test was ordered to view the pharyngeal phase of the swallow and determine most appropriate diet. Reports indicate that the patient currently receives a pureed diet, but has been undergoing trials with soft foods and doing fairly well. The patient reported that foods often feel like they are sticking and that she has been coughing with meals. For today's assessment, the patient was alert and able to follow commands. She was receiving oxygen via nasal cannula. Oral peripheral examination revealed presence of top denture only. The patient reported that her denture was adequately fitting. Lingual, labial, and buccal skills were within normal limits in terms of strength, range of motion, and coordination. The patient was able to volitionally cough and swallow. METHODS AND MATERIALS USED FOR THE EXAMINATION: The patient was positioned in the lateral plane and the exam was viewed under fluoroscopy. The patient was presented with a variety of consistencies to assess swallowing skills including applesauce mixed with barium presented in half teaspoon amounts, barium-coated banana and cookie presented in bite size pieces and thin liquid barium taken by cup. The patient took the thin liquids independently. ORAL PHASE: The patient achieved adequate labial seal around cup and spoon with no anterior loss. Bolus formation and transit were adequate. Mastication of the barium coated banana was slow but functional. The patient had difficulty in chewing the soft cookie. She reported that she could not chew it and needed to spit it out; therefore, she did spit the cookie out and her swallow was unable to be further assessed with that consistency. Tongue to palate contact was within normal limits. Tongue retraction was within normal limits. Velar functioning was within normal limits with no nasal regurgitation. PHARYNGEAL PHASE: Unremarkable. ESOPHAGEAL PHASE: This phase of the swallow was not formally assessed during this exam. IMPRESSIONS AND RECOMMENDATIONS: Based upon assessment results, this 87-year-old patient presents with mild oral dysphagia with solids. When given soft cookie, the patient reported that she could not chew it and spit it out. The patient displayed no difficulty with puree or thin liquid consistencies. No residue. Penetration or aspiration occurred with any consistency. Recommend the patient continue with pureed diet and thin liquid. Results and recommendations were shared with the patient and the aide that accompanied her for the test. A written copy of recommendations was provided for education of [place], [place] PROCEDURE NOTE NAME: RODRIGO ORTEGA UNIT #: [id number] ROOM: DOCTOR: RODRIGUEZ GARCIA BIRTHDATE: [birth year] correction staff. Thank you very much for this referral. Should you have any questions regarding this patient, please contact the speech pathologist at [phone]. RODRIGUEZ GARCIA ROSY SORIANO MD CM:PROCNOTE:PROCEDURE NOTE 1452 18 RODRIGUEZ GARCIA
== END | disposition home or self-care (01) ==
LOC: RAD/SH 13:51
DX: R13.10 Dysphagia, unspecified (principal); Z93.1 Gastrostomy status

== ENCOUNTER → 2017-10-03 | Outpatient (CLI) | payer OTHER ==
[~2017-10-03] MED LIST changes: +ATIVAN0.5 MG PO; +CYMBALTA20 M1 PO; +DEPAKOTE DR500 MG PO; +FEOSOL325 MG PO; +GLUCAGON EMERGEN1 M1 IJ; +IMODIUM A-D2 M2 PO; +LEVEMIR100 UNIT/1 SC; +NOVOLOG MI100 UNIT/2 SQ; +RESOURCE 2.0 2237 ML PO; +RISPERDAL M-TA0.5 MG BC; +RIVASTIGMINE1 EACH T; +TYLENOL325 M2 PO
[2017-10-03 10:15] VITALS: BP 122/52
[2017-10-03 12:00] VITALS: BP 138/54
[2017-10-03 12:28] VITALS: BP 98/72
[2017-10-03 13:13] VITALS: BP 136/70
== END | disposition home or self-care (01) ==
LOC: TRNFUSION 08:29
DX: D64.9 Anemia, unspecified (principal)

== ENCOUNTER 2017-10-06 16:42 | Inpatient (IN) | payer OTHER ==
[~2017-10-06] VITALS: Ht 157.4 cm; Wt 75.8 kg
--- NOTE | ~2017-10-06 | CON ---
[place], [place] REPORT OF CONSULTATION NAME: RODRIGO ORTEGA UNIT #: [id number] ROOM: 523 DOCTOR: YOLY MCKEON MD BIRTHDATE: [birth year] DOS: 10/07/2017 PSYCHIATRIC CONSULTATION CHIEF COMPLAINT: "I lost my doggy, I lost my doggy." HISTORY OF PRESENT ILLNESS: This is an 87-year-old white female who resides at the [facility]. The patient presented to the Emergency Room at [facility] with altered mental status and increased verbal and physical aggressiveness. The patient apparently upon evaluation there was found to have a very bad UTI and was ultimately admitted with metabolic encephalopathy to the medical floor. While on the medical floor, the patient has voiced suicidal ideation with a plan. She has also become verbally and physically aggressive, requiring p.r.n. intervention in order to prevent harm to self and others. MENTAL STATUS EXAMINATION: My mental status this morning is limited by the fact that the patient did receive a p.r.n. recently and was somewhat somnolent. She was lying in bed, chanting "I lost my doggy" and responded to every question that I asked of her with the same response. DIAGNOSIS: Brief psychotic disorder. PLAN: At this point, I have discontinued her temazepam to prevent polypharmacy. I will discontinue Depakote as she has been episodically noncompliant with this and her blood level is nonexistent. Often times because the Depakote is such a large pill it overwhelms the elderly, instead I will use Risperdal M-Tab 0.5 mg twice daily to decrease some of her mood lability and agitation as well as decreasing some of the psychosis. I will also start her on Exelon patch 4.6 mg daily to impact positively on ADL maintenance, behavior and cognition. Should she clear medically, but remain agitated and aggressive, I would then admit to the Behavioral Health Care Unit for further stabilization. YOLY MCKEON MD CM:CONSTR:REPORT OF CONSULTATION 1005 10/07/177 interface
[~2017-10-06 16:42] MED LIST changes: -ATIVAN0.5 MG PO; -CYMBALTA20 M1 PO; -DEPAKOTE DR500 MG PO; -FEOSOL325 MG PO; -GLUCAGON EMERGEN1 M1 IJ; -IMODIUM A-D2 M2 PO; -LEVEMIR100 UNIT/1 SC; -NOVOLOG MI100 UNIT/2 SQ; -RESOURCE 2.0 2237 ML PO; -RISPERDAL M-TA0.5 MG BC; -RIVASTIGMINE1 EACH T; -TYLENOL325 M2 PO
[2017-10-06 16:52] VITALS: BP 174/45
[2017-10-06 17:45] LABS: ALBUMIN 2.9 gm/dl (3.1-4.5); CREATININE 3.09 mg/dL (0.55-1.02); TOTAL PROTEIN 6.8 gm/dL (6.4-8.2)
[2017-10-06 17:57] LABS: BASO # 0.1 10*3/uL (0.0-0.1); BASO % 0.4 % (0.0-1.0); EOS # 0.2 10*3/uL (0.0-0.4); EOS % 1.1 % (1.0-4.0); HEMATOCRIT 34.9 % (37.0-47.0); HEMOGLOBIN 10.8 g/dl (12.0-16.0); LYMPH # 1.7 10*3/uL (1.3-4.4); LYMPH % 11.5 % (27.0-41.0); MEAN CELL VOLUME 78.4 fl (81.0-99.0); MEAN CORPUSCULAR HGB 24.3 pg (27.0-31.0); MEAN CORPUSCULAR HGB CONC 30.9 g/dl (33.0-37.0); MEAN PLATELET VOLUME 10.6 fl (9.6-12.3); MONO # 1.5 10*3/uL (0.1-1.0); NEUT # 11.5 10*3/uL (2.3-7.9); NEUT % 76.5 % (47.0-73.0); PLATELET COUNT AUTOMATED 354 10*3/uL (130-400); RED BLOOD COUNT 4.45 10*6/uL (4.10-5.10); RED CELL DISTRI WIDTH 20.5 % (0-14.5)
[2017-10-06 18:00] VITALS: BP 169/51
[2017-10-06 18:28] LABS: BILIRUBIN 1+ (NEGATIVE); BLOOD 2+ (NEGATIVE); CLARITY CLOUDY (CLEAR); COLOR YELLOW (YELLOW); GLUCOSE NEGATIVE (NEGATIVE); KETONE TRACE (NEGATIVE); LEUKO ESTERASE 2+ (NEGATIVE); NITRITE POSITIVE (NEGATIVE); PH 5.5 (5.0-9.0); SPECIFIC GRAVITY 1.025 (1.005-1.030); UROBILINOGEN 0.2 E.U./dl (0.2-1.0)
[2017-10-06 18:47] LABS: WBC TNTC wbc/hpf (0-5)
[2017-10-06 20:30] VITALS: BP 102/43
[2017-10-06] MEDS ORDERED: ATIVAN0.5 MG PO (21:20)
[2017-10-06] MEDS ORDERED: CYMBALTA20 M1 PO (21:31)
[2017-10-06] MEDS ORDERED: DEPAKOTE DR500 MG PO (21:32)
[2017-10-06] MEDS ORDERED: FEOSOL325 MG PO (21:34)
[2017-10-06] MEDS ORDERED: GLUCAGON EMERGEN1 M1 IM (21:35)
[2017-10-06] MEDS ORDERED: IMODIUM A-D2 M2 PO (21:35)
[2017-10-06] MEDS ORDERED: LEVEMIR100 UNIT/1 SC (21:36)
[2017-10-06] MEDS ORDERED: NOVOLOG MI100 UNIT/2 SQ (21:39)
[2017-10-06] MEDS ORDERED: RESOURCE 2.0 2237 ML PO (21:40)
[2017-10-06] MEDS ORDERED: TYLENOL325 M2 PO (21:41)
[2017-10-06] MEDS ORDERED: BIOFREEZE118 ML T (21:45)
[2017-10-07] VITALS: BP 132/76
[2017-10-07 00:27] VITALS: BP 102/43
[2017-10-07 08:29] LABS: ALBUMIN 2.4 gm/dl (3.1-4.5); CREATININE 2.7 mg/dL (0.55-1.02); PHOSPHOROUS 3.5 mg/dL (2.5-4.9); POTASSIUM 4.2 mmol/L (3.5-5.1); TOTAL PROTEIN 5.7 gm/dL (6.4-8.2)
[2017-10-07 08:48] LABS: BASO # 0.1 10*3/uL (0.0-0.1); BASO % 0.6 % (0.0-1.0); EOS # 0.3 10*3/uL (0.0-0.4); EOS % 3.3 % (1.0-4.0); HEMATOCRIT 31.6 % (37.0-47.0); HEMOGLOBIN 9.4 g/dl (12.0-16.0); LYMPH # 1.2 10*3/uL (1.3-4.4); LYMPH % 14.5 % (27.0-41.0); MEAN CELL VOLUME 80.8 fl (81.0-99.0); MEAN CORPUSCULAR HGB CONC 29.7 g/dl (33.0-37.0); MEAN PLATELET VOLUME 11.3 fl (9.6-12.3); MONO # 0.8 10*3/uL (0.1-1.0); MONO % 10.2 % (3.0-9.0); NEUT # 5.6 10*3/uL (2.3-7.9); RED BLOOD COUNT 3.91 10*6/uL (4.10-5.10); RED CELL DISTRI WIDTH 20.7 % (0-14.5); WHITE BLOOD COUNT 7.9 10*3/uL (4.8-10.8)
[2017-10-07 08:56] LABS: PLATELET COUNT AUTOMATED 230 10*3/uL (130-400)
[2017-10-07 12:00] VITALS: BP 123/43
[2017-10-07 16:00] VITALS: BP 169/45
[2017-10-07 20:00] VITALS: BP 152/60
[2017-10-08] VITALS: BP 127/75
[2017-10-08 08:00] VITALS: BP 133/50
[2017-10-08 09:24] LABS: CREATININE 2.05 mg/dL (0.55-1.02); PHOSPHOROUS 3.1 mg/dL (2.5-4.9); POTASSIUM 4.5 mmol/L (3.5-5.1)
[2017-10-08 10:06] LABS: BASO # 0.1 10*3/uL (0.0-0.1); BASO % 0.6 % (0.0-1.0); EOS # 0.3 10*3/uL (0.0-0.4); EOS % 3.7 % (1.0-4.0); HEMOGLOBIN 9.5 g/dl (12.0-16.0); LYMPH # 1.2 10*3/uL (1.3-4.4); LYMPH % 15.2 % (27.0-41.0); MEAN CELL VOLUME 80.8 fl (81.0-99.0); MEAN CORPUSCULAR HGB CONC 29.7 g/dl (33.0-37.0); MEAN PLATELET VOLUME 10.9 fl (9.6-12.3); MONO # 0.7 10*3/uL (0.1-1.0); MONO % 8.7 % (3.0-9.0); NEUT # 5.6 10*3/uL (2.3-7.9); NEUT % 71.3 % (47.0-73.0); PLATELET COUNT AUTOMATED 214 10*3/uL (130-400); RED BLOOD COUNT 3.96 10*6/uL (4.10-5.10); RED CELL DISTRI WIDTH 20.8 % (0-14.5); WHITE BLOOD COUNT 7.8 10*3/uL (4.8-10.8)
[2017-10-08 12:00] VITALS: BP 171/78
[2017-10-08 16:00] VITALS: BP 120/60
[2017-10-08 20:00] VITALS: BP 152/60
[2017-10-09] VITALS: BP 150/71
[2017-10-09 07:12] LABS: BASO % 0.5 % (0.0-1.0); EOS # 0.1 10*3/uL (0.0-0.4); EOS % 1.9 % (1.0-4.0); HEMATOCRIT 34.5 % (37.0-47.0); HEMOGLOBIN 10.6 g/dl (12.0-16.0); LYMPH # 0.7 10*3/uL (1.3-4.4); LYMPH % 10.3 % (27.0-41.0); MEAN CELL VOLUME 79.3 fl (81.0-99.0); MEAN CORPUSCULAR HGB 24.4 pg (27.0-31.0); MEAN CORPUSCULAR HGB CONC 30.7 g/dl (33.0-37.0); MEAN PLATELET VOLUME 10.7 fl (9.6-12.3); MONO # 0.5 10*3/uL (0.1-1.0); MONO % 7.6 % (3.0-9.0); NEUT % 79.4 % (47.0-73.0); PLATELET COUNT AUTOMATED 211 10*3/uL (130-400); RED BLOOD COUNT 4.35 10*6/uL (4.10-5.10); RED CELL DISTRI WIDTH 20.8 % (0-14.5); WHITE BLOOD COUNT 6.3 10*3/uL (4.8-10.8)
[2017-10-09 07:30] LABS: ALBUMIN 2.7 gm/dl (3.1-4.5); POTASSIUM 3.9 mmol/L (3.5-5.1)
[2017-10-09 07:32] LABS: CREATININE 1.49 mg/dL (0.55-1.02); TOTAL PROTEIN 6.4 gm/dL (6.4-8.2)
[2017-10-09 08:00] VITALS: BP 138/52
[2017-10-09 12:00] VITALS: BP 173/65
[2017-10-09] MEDS ORDERED: RISPERDAL M-TA0.5 MG BC (13:28)
[2017-10-09] MEDS ORDERED: RIVASTIGMINE1 EACH T (13:28)
[2017-10-09 16:00] VITALS: BP 142/55
[2017-10-09 20:00] VITALS: BP 179/69
[2017-10-10] VITALS: BP 157/80
[2017-10-10] MEDS ORDERED: ZOFRAN ODT4 MG SL (04:52)
[2017-10-10 06:05] LABS: CREATININE 1.34 mg/dL (0.55-1.02)
[2017-10-10 06:12] LABS: POTASSIUM 5.1 mmol/L (3.5-5.1)
[2017-10-10 08:00] VITALS: BP 148/66
[2017-10-10 12:00] VITALS: BP 134/58
[2017-10-10 16:00] VITALS: BP 156/86
[2017-10-10] MEDS ORDERED: BACTRIM 400-801 EACH PO (17:36)
[2017-10-11] VITALS: BP 145/69
[2017-10-11 06:45] LABS: CREATININE 1.43 mg/dL (0.55-1.02); PHOSPHOROUS 2.4 mg/dL (2.5-4.9); POTASSIUM 4.6 mmol/L (3.5-5.1)
[2017-10-11 06:56] LABS: ALBUMIN 2.5 gm/dl (3.1-4.5)
[2017-10-11 08:00] VITALS: BP 136/62
[2017-10-11 12:00] VITALS: BP 126/59
== END 2017-10-11 15:29 | DRG 682 ==
LOC: ED 16:42 → 5E 19:07 → EDHOLD 19:07 → 5E 19:19
PROVIDERS: Internal Medicine; Internal Medicine Nephrology; Physician Assistant; Registered Nurse; Student in an Organized Health Care Education/Training Program
DX: N17.0 Acute kidney failure with tubular necrosis (principal); G93.41 Metabolic encephalopathy; E87.2 Acidosis; E44.0 Moderate protein-calorie malnutrition; E11.22 Type 2 diabetes mellitus with diabetic chronic kidney disease; E11.649 Type 2 diabetes mellitus with hypoglycemia without coma; R65.10 Systemic inflammatory response syndrome (SIRS) of non-infectious origin without acute organ dysfunction; I50.32 Chronic diastolic (congestive) heart failure; F23 Brief psychotic disorder; I13.0 Hypertensive heart and chronic kidney disease with heart failure and stage 1 through stage 4 chronic kidney disease, or unspecified chronic kidney disease; K21.9 Gastro-esophageal reflux disease without esophagitis; D72.821 Monocytosis (symptomatic); N30.91 Cystitis, unspecified with hematuria; E78.5 Hyperlipidemia, unspecified; E66.3 Overweight; D50.9 Iron deficiency anemia, unspecified; K57.90 Diverticulosis of intestine, part unspecified, without perforation or abscess without bleeding; D72.9 Disorder of white blood cells, unspecified; N28.1 Cyst of kidney, acquired; M89.8X9 Other specified disorders of bone, unspecified site; Z66 Do not resuscitate; Z51.5 Encounter for palliative care; N18.4 Chronic kidney disease, stage 4 (severe); D72.810 Lymphocytopenia; B96.20 Unspecified Escherichia coli [E. coli] as the cause of diseases classified elsewhere; Z16.12 Extended spectrum beta lactamase (ESBL) resistance; J44.9 Chronic obstructive pulmonary disease, unspecified; E86.0 Dehydration; Z79.4 Long term (current) use of insulin; Z88.6 Allergy status to analgesic agent; Z90.49 Acquired absence of other specified parts of digestive tract; Z90.710 Acquired absence of both cervix and uterus; Z98.42 Cataract extraction status, left eye; Z98.41 Cataract extraction status, right eye; Z87.891 Personal history of nicotine dependence; Z82.49 Family history of ischemic heart disease and other diseases of the circulatory system; Z83.3 Family history of diabetes mellitus; Z80.3 Family history of malignant neoplasm of breast; Z79.899 Other long term (current) drug therapy; Z68.30 Body mass index [BMI] 30.0-30.9, adult

== ENCOUNTER 2017-10-13 16:17 | Inpatient (IN) | payer OTHER ==
[~2017-10-13] VITALS: Ht 162.5 cm; Wt 72.6 kg
--- NOTE | ~2017-10-13 | PR ---
[place], [place] PROGRESS NOTE NAME: RODRIGO ORTEGA UNIT #: [id number] ROOM: 309 DOCTOR: AKIKO WITT DO BIRTHDATE: [birth year] DOS: 10/17/2017 CHIEF COMPLAINT: "That's Sable, that's my dog." SUMMARY OF VISIT: The patient was interviewed in her room in her bed. She had her plate of breakfast. She was stating that her stomach was upset during the morning. She had been calling out for her dog, Sable. Per report, nursing staff stated that she was looking for chickens as well as cats. She was also upset that she could not make soup. MENTAL STATUS EXAMINATION: She is alert and oriented to self only. Short term memory is extremely poor. She is very pleasant and cooperative. She continues to be confused and does not respond appropriately to questions. PLAN: We will increase her Namenda to 10 mg b.i.d. and increase the Risperdal 0.5 mg in the morning and 1 mg at night to maximize potential benefit. We will continue other psychotropic regimen at this time. Continue to engage her in individual and group activities with a plan to return her to the least restrictive environment when psychiatrically stable. Plan for discharge to the [facility]. AKIKO WITT DO YOLY MCKEON MD CM:PNIMER 0916 1009 AKIKO WITT DO 10/17/17 1008 interface
--- NOTE | ~2017-10-13 | DS ---
[place], [place] DISCHARGE SUMMARY NAME: RODRIGO ORTEGA UNIT #: [id number] ROOM: 309 DOCTOR: YOLY MCKEON MD BIRTHDATE: [birth year] DOS: 10/21/2017 ADDENDUM CHIEF COMPLAINT: "Oh, hi there honey, ya I am a little cold." SUMMARY OF THE VISIT: The patient was interviewed once again in her room. She was very pleasant upon approach. She offered no complaints other than being a little cold and requesting a blanket. She has been pleasant and cooperative. She has not been yelling out or aggressive in any manner. She remains confused; however, this is baseline. At this point, she is ready to return back to the [facility]. MENTAL STATUS: She is alert and oriented to self, not necessarily place, certainly not time. Mood seems euthymic. Affect appropriate. No zoe or psychosis is noted. Short term memory remains exceptionally poor. DIAGNOSIS AND DISPOSITION: As per my discharge note dictated 10/20/2017. YOLY MCKEON MD CM:DISCHARG 0912 0922 YOLY MCKEON MD 10/21/17 1546 interface
--- NOTE | ~2017-10-13 | PR ---
[place], [place] PROGRESS NOTE [id number] #: [id number] ROOM: 309 DOCTOR: GRISEL LEE MD BIRTHDATE: [birth year] DOS: 10/19/2017 SUBJECTIVE: The patient seen and spoke with the staff. Per staff, the patient is on upset mood this morning. She did not eat a whole lot of her breakfast, but usually as per nursing staff, she eats well during the lunch and dinner time. Reportedly, she was irritable at time, but medication compliant. The patient was pleasant and cooperative. She was in a room. She was sitting on the chair. She said that she is doing fine, did not express any problems or concerns. She was not in any acute distress. She denied any side effects from her medication. MENTAL STATUS EXAMINATION: Pleasant, cooperative. Described her mood as "fine." Affect, mood congruent. Thought processes with confabulation. No auditory or visual hallucination. No delusion or paranoia noted. She denied suicidal ideation, intent or plan. She also denied any homicidal ideation, intent or plan. PLAN: 1. Continue current medication and care. 2. Continue redirection. 3. Final medication management and discharge plan by the regular team. GRISEL LEE MD CM:PNTRANS 27 37 GRISEL LEE MD 10/19/172235 interface
--- NOTE | ~2017-10-13 | PR ---
[place], [place] PROGRESS NOTE NAME: RODRIGO ORTEGA UNIT #: [id number] ROOM: 309 DOCTOR: AKIKO WITT DO BIRTHDATE: [birth year] DOS: 10/15/2017 CHIEF COMPLAINT: "Can you help me get this off." SUMMARY OF THE VISIT: The patient was interviewed in her room, sitting in a Brigette chair. She complained of getting the chair up. Per nursing, she was given IV fluids due to poor p.o. intake. She did express concerns that her medication, she thought was poison but after explanation by the nursing staff she did take them. She did have a hard time sleeping. MENTAL STATUS: She is alert and oriented to self. Her short-term memory is extremely poor. Her mood seems to be labile, though she is pleasant and cooperative. She is very confused and her responses do not make sense and do not correspond with the questions being asked. PLAN: We will increase her Exelon patch to 13.3 mg daily to maximize potential benefit. We will maintain her current psychotropic regimen at this time. We will continue to engage her in group and individual activities with the ultimate plan to return her back to the [facility] when psychiatrically stable. AKIKO WITT DO YOLY MCKEON MD CM:PNIMER 1138 AKIKO WITT DO 10/15/17 1337 interface
--- NOTE | ~2017-10-13 | WRIGHTHP ---
[place], [place] PATIENT HISTORY AND PHYSICAL EXAM NAME[facility]: [id number] UNIT #: [id number] ROOM: 309 DOCTOR: YOLY MCKEON MD BIRTHDATE: [birth year] DOS: 10/14/2017 CHIEF COMPLAINT: "Are they going to send me to work now." HISTORY OF PRESENT ILLNESS: This is an 87-year-old white female who is a resident of the [facility]. The patient has had a significant alteration in mental status over the last month. Most recently, she was admitted to the medical floor at [facility] due to sepsis. During that period of time while on the medical floor, the patient was very paranoid and delusional. However, as her urinary tract infection cleared, she began to trend psychiatrically back to her baseline, so she was discharged back to the [facility]; however, upon readmission to the [facility], the patient's psychiatric condition worsened. Over the time that she was back at the [place], she became increasingly more paranoid and delusional. She was verbally and physically aggressive towards staff and other residents. She would be physically aggressive and strike out when redirected. She believed that people were out to hurt her and was not necessarily cooperating with all aspects of her care nor was she eating or drinking as she should be. She is admitted now to rule out any organic factors, to attempt to restabilize on medication, to engage in individual and rico milieu activity, returning to the least restrictive environment when psychiatrically stable. PAST MEDICAL HISTORY: Remarkable for acute kidney failure with tubular necrosis, chronic kidney disease stage 3, diabetes, hypertension, GERD, hyperlipidemia, congestive heart failure, COPD and a history of breast cancer. MENTAL STATUS: The patient is alert and oriented to self. It is unclear if she realizes she is in the hospital, although I do doubt that she does and she is certainly not oriented to time. Mood does seem to be rather labile, although for the most part she was pleasant and cooperative with me. She is very confused, however, and most of her responses to me made little sense to the questions being asked of her. She was, however, not aggressive in any way towards me. There was no verbal aggression or physical attempts of aggression. There is no hypomania or zoe seen. There is some delusion present. She does process extremely slow and her responses that tend to be sparse and at times, nonsensical. Short-term memory is extremely poor. DIAGNOSIS: Major depression, recurrent with psychotic features and Alzheimer's dementia. PLAN: The patient has been admitted to the unit where she has been started on Cymbalta 20 mg a day, Risperdal 0.5 mg twice a day. She is also maintained on Exelon patch 9.5 mg a day and Namenda has been added at 5 mg a day, which will now be increased to 5 mg twice a day. We will continue to engage her in individual and rico milieu activity. The ultimate plan is to return her back to the [facility] when psychiatrically stable. [place], [place] PATIENT HISTORY AND PHYSICAL EXAM NAME: RODRIGO ORTEGA UNIT #: [id number] ROOM: 309 DOCTOR: YOLY MCKEON MD BIRTHDATE: [birth year] YOLY MCKEON MD CM:HISPHYS:PATIENT HISTORY AND PHYSICAL EXAMINATION 4 YOLY MCKEON MD 10/14/17914 interface
--- NOTE | ~2017-10-13 | DS ---
[place], [place] DISCHARGE SUMMARY [id number] UNIT #: [id number] ROOM: 309 DOCTOR: YOLY MCKEON MD BIRTHDATE: [birth year] DOS: 10/20/2017 CHIEF COMPLAINT: "Are they going to send me to work now." HISTORY OF PRESENT ILLNESS: This is an 87-year-old white female who is a resident of the [facility]. The patient has had a significant alteration in mental status over the last month. Most recently, she was admitted to the medical floor at [facility] due to sepsis. During that period of time, the patient was very paranoid and delusional. However, as her urinary tract infection cleared, she began to trend psychiatrically back to her baseline, so she was discharged back to the [facility]. However, upon her readmission to the [facility], the patient's psychiatric condition worsened. During that period of time, she became increasingly more paranoid and delusional. She was verbally and physically aggressive toward staff and other residents. She was strike out when redirected. She believed that people were deliberately out to hurt her and therefore she was very resistance to her care. She was not eating, drinking or attending to her ADLs. She was not taking her medications as prescribed. Because of her significant resistance to care, she was putting herself and others at significant risk of harm. The patient was admitted then to the [facility] to rule out further organic issues to engage in individual and rico milieu activity to stabilize on medication, returning to the [place] or the least restrictive environment when psychiatrically stable. PAST MEDICAL HISTORY: Remarkable for acute kidney failure with tubular necrosis, chronic kidney disease stage 3, diabetes, hypertension, GERD, hyperlipidemia, congestive heart failure, COPD and a history of breast cancer. SUMMARY OF HOSPITAL COURSE: The patient was admitted to the unit where she was started on Cymbalta 20 mg a day. She was started deliberately on a very low dose of Cymbalta due to her chronic and acute kidney issues. She was also started on Risperdal 0.5 mg twice daily. She was maintained on Exelon patch 9.5 and Namenda was started at 5 mg a day. Ultimately, the Exelon patch was increased to its maximum dose of 13.3 mg a day. Namenda was rapidly titrated from 5 mg a day to its maximum dose of 10 mg twice daily. Gradually, the patient began to improve, although she continued to exhibit marked mood lability and some delusions. She tolerated the medicines well. Ultimately, the Risperdal was increased, then from 0.5 mg twice a day to 0.5 mg in the morning and 1 mg at night. With this dose increased, the patient's delusions and paranoia dissipated. She became much more pleasant and cooperative. She engaged readily in interaction with others. There were no further episodes of verbal or physical aggression. She cooperated fully with all aspects of her care. The patient had improved sufficiently then by October 20 to return back to the [facility] where I will follow her upon her readmission there. MENTAL STATUS AT DISCHARGE: The patient is alert and oriented to person, place, not necessarily time. Mood was strongly trending towards euthymia. Affect is much more appropriate. There is no zoe or hypomania. The delusional system that was so prominent upon admission had pretty much dissipated completely upon [place], [place] DISCHARGE SUMMARY NAME: RODRIGO ORTEGA UNIT #: [id number] ROOM: 309 DOCTOR: YOLY MCKEON MD BIRTHDATE: [birth year] discharge. Short-term memory remained poor. FINAL DIAGNOSES UPON DISCHARGE: Major depression, recurrent with psychotic features and Alzheimer's dementia. PLAN: The patient is to return to the [facility]. All of her prescriptions have been printed and will be sent with her. I will follow her upon her readmission to the [facility]. Medically and psychiatrically, she is stable. Her biopsychosocial needs will be met adequately by the staff there. I will follow her upon her return. ADDENDUM CHIEF COMPLAINT: "Oh, hi there honey, ya I am a little cold." SUMMARY OF THE VISIT: The patient was interviewed once again in her room. She was very pleasant upon approach. She offered no complaints other than being a little cold and requesting a blanket. She has been pleasant and cooperative. She has not been yelling out or aggressive in any manner. She remains confused; however, this is baseline. At this point, she is ready to return back to the [place] [facility] [place]. MENTAL STATUS: She is alert and oriented to self, not necessarily place, certainly not time. Mood seems euthymic. Affect appropriate. No zoe or psychosis is noted. Short term memory remains exceptionally poor. DIAGNOSIS AND DISPOSITION: As per my discharge note dictated 10/20/2017. YOLY MCKEON MD CM:DISCHARG [id number] YOLY MCKEON MD 10/21/17 1545 interface
--- NOTE | ~2017-10-13 | PR ---
[place], [place] PROGRESS NOTE NAME: RODRIGO ORTEGA UNIT #: [id number] ROOM: 309 DOCTOR: AKIKO WITT DO BIRTHDATE: [birth year] DOS: 10/16/2017 CHIEF COMPLAINT: "I guess I ate it." SUMMARY OF VISIT: The patient was interviewed in her room. She is in isolation. She stated that she does not remember eating breakfast but says that yes she did. She admits to living in [place]. She does appear confused according to the staff. She likes to look at magazines. She is occasionally engaged in individual activities due to her medical history. MENTAL STATUS: She is alert and oriented to self. Short-term memory is extremely poor. Mood is labile, though she is very pleasant and cooperative. She continues to be confused and does not respond appropriately to the questions being asked of her. PLAN: We will increase her Namenda to 10 mg in the morning with 5 mg at night to maximize potential benefit. We will continue other psychotropic regimen at this time and continue to engage her in group and individual activities with the plan to return her back to [facility] when psychiatrically stable. AKIKO WITT DO YOLY MCKEON MD CM:BROOKE [id number] AKIKO WITT DO 10/16/17 1249 interface
--- NOTE | ~2017-10-13 | PR ---
[place], [place] PROGRESS NOTE NAME: [facility] [id number] UNIT #: [id number] ROOM: 309 DOCTOR: GRISEL LEE MD BIRTHDATE: [birth year] DOS: 10/18/2017 SUBJECTIVE: The patient seen and spoke with the staff. Per staff, patient is doing well. No behavior problems or issues. Medication compliant. The patient was in her room. She is in the Brigette chair. She said that she has been feeling good and denied any problems or concerns. She said that she is taking her medication regularly and did not have any side effect. She reports good sleep and appetite. MENTAL STATUS EXAMINATION: The patient was pleasant and cooperative. Described her mood as "good." Affect, mood congruent. Thought processes with confabulation. She denied auditory or visual hallucination. No delusion or paranoia noted. She denied suicidal ideation, intent or plan. She also denied homicidal ideation, intent or plan. PLAN: 1. Continue current medication and care. 2. Continue redirection. 3. Encourage activity and groups. GRISEL LEE MD CM:PNTRANS [id number] GRISEL LEE MD 10/19/17 0519 interface
[~2017-10-13 16:17] MED LIST changes: +ATIVAN0.5 MG PO; +BACTRIM 400-801 EACH PO; +CYMBALTA20 M1 PO; +DEPAKOTE DR500 MG PO; +FEOSOL325 MG PO; +GLUCAGON EMERGEN1 M1 IM; +IMODIUM A-D2 M2 PO; +LEVEMIR100 UNIT/1 SC; +NOVOLOG MI100 UNIT/2 SQ; +RESOURCE 2.0 2237 ML PO; +RISPERDAL M-TA0.5 MG BC; +RIVASTIGMINE1 EACH T; +TYLENOL325 M2 PO; +ZOFRAN ODT4 MG SL
[2017-10-13 17:19] VITALS: BP 113/56
[2017-10-13] MEDS ORDERED: RISPERDAL0.25 MG PO (17:43)
[2017-10-13] MEDS ORDERED: EXELON1 EAC1 TD (17:44)
[2017-10-13] MEDS ORDERED: HALDOL5 MG/1 ML IJ (17:45)
[2017-10-13 17:54] VITALS: BP 113/56
[2017-10-13 20:20] VITALS: BP 119/55
[2017-10-14 07:51] LABS: BASO # 0.1 10*3/uL (0.0-0.1); BASO % 0.5 % (0.0-1.0); EOS # 0.3 10*3/uL (0.0-0.4); EOS % 3.4 % (1.0-4.0); HEMATOCRIT 28.6 % (37.0-47.0); HEMOGLOBIN 8.6 g/dl (12.0-16.0); LYMPH # 1.6 10*3/uL (1.3-4.4); LYMPH % 17.4 % (27.0-41.0); MEAN CELL VOLUME 80.8 fl (81.0-99.0); MEAN CORPUSCULAR HGB 24.3 pg (27.0-31.0); MEAN CORPUSCULAR HGB CONC 30.1 g/dl (33.0-37.0); MEAN PLATELET VOLUME 11.2 fl (9.6-12.3); MONO # 0.8 10*3/uL (0.1-1.0); MONO % 8.6 % (3.0-9.0); NEUT # 6.4 10*3/uL (2.3-7.9); NEUT % 69.7 % (47.0-73.0); PLATELET COUNT AUTOMATED 205 10*3/uL (130-400); RED BLOOD COUNT 3.54 10*6/uL (4.10-5.10); RED CELL DISTRI WIDTH 20.3 % (0-14.5); WHITE BLOOD COUNT 9.3 10*3/uL (4.8-10.8)
[2017-10-14 07:59] VITALS: BP 126/65
[2017-10-14 08:09] LABS: ALBUMIN 2.4 gm/dl (3.1-4.5); CREATININE 2.42 mg/dL (0.55-1.02); POTASSIUM 3.7 mmol/L (3.5-5.1); TOTAL PROTEIN 5.6 gm/dL (6.4-8.2)
[2017-10-14 08:13] LABS: THYROID STIM HORMONE (HS) 1.55 uIU/ml (0.358-4.75)
[2017-10-14 10:04] LABS: VITAMIN D, 25-HYDROXY 47.7 ng/mL (30-100)
[2017-10-14 19:34] VITALS: BP 128/72
[2017-10-15 05:54] LABS: ALBUMIN 2.5 gm/dl (3.1-4.5); CREATININE 2.45 mg/dL (0.55-1.02); POTASSIUM 3.7 mmol/L (3.5-5.1); TOTAL PROTEIN 5.8 gm/dL (6.4-8.2)
[2017-10-15 06:26] LABS: BASO % 0.4 % (0.0-1.0); EOS # 0.2 10*3/uL (0.0-0.4); HEMATOCRIT 28.8 % (37.0-47.0); HEMOGLOBIN 8.8 g/dl (12.0-16.0); LYMPH # 1.2 10*3/uL (1.3-4.4); LYMPH % 11.6 % (27.0-41.0); MEAN CELL VOLUME 78.9 fl (81.0-99.0); MEAN CORPUSCULAR HGB 24.1 pg (27.0-31.0); MEAN CORPUSCULAR HGB CONC 30.6 g/dl (33.0-37.0); MONO # 0.8 10*3/uL (0.1-1.0); MONO % 7.9 % (3.0-9.0); NEUT # 7.7 10*3/uL (2.3-7.9); NEUT % 77.7 % (47.0-73.0); PLATELET COUNT AUTOMATED 204 10*3/uL (130-400); RED BLOOD COUNT 3.65 10*6/uL (4.10-5.10); RED CELL DISTRI WIDTH 20.3 % (0-14.5)
[2017-10-15 09:11] VITALS: BP 123/80
[2017-10-15 09:22] LABS: BILIRUBIN NEGATIVE (NEGATIVE); BLOOD 1+ (NEGATIVE); CLARITY CLOUDY (CLEAR); COLOR YELLOW (YELLOW); GLUCOSE NEGATIVE (NEGATIVE); KETONE TRACE (NEGATIVE); LEUKO ESTERASE 2+ (NEGATIVE); NITRITE NEGATIVE (NEGATIVE); PH 5.5 (5.0-9.0); SPECIFIC GRAVITY 1.025 (1.005-1.030); UROBILINOGEN 0.2 E.U./dl (0.2-1.0)
[2017-10-15 09:40] LABS: WBC TNTC wbc/hpf (0-5); YEAST 1+
[2017-10-15 20:05] VITALS: BP 151/70
[2017-10-16 06:43] LABS: BASO % 0.6 % (0.0-1.0); EOS # 0.3 10*3/uL (0.0-0.4); EOS % 3.7 % (1.0-4.0); HEMATOCRIT 31.5 % (37.0-47.0); HEMOGLOBIN 9.6 g/dl (12.0-16.0); LYMPH % 13.1 % (27.0-41.0); MEAN CELL VOLUME 80.6 fl (81.0-99.0); MEAN CORPUSCULAR HGB 24.6 pg (27.0-31.0); MEAN CORPUSCULAR HGB CONC 30.5 g/dl (33.0-37.0); MEAN PLATELET VOLUME 10.6 fl (9.6-12.3); MONO # 0.7 10*3/uL (0.1-1.0); MONO % 9.1 % (3.0-9.0); NEUT # 5.3 10*3/uL (2.3-7.9); NEUT % 73.1 % (47.0-73.0); PLATELET COUNT AUTOMATED 181 10*3/uL (130-400); RED BLOOD COUNT 3.91 10*6/uL (4.10-5.10); RED CELL DISTRI WIDTH 20.3 % (0-14.5); WHITE BLOOD COUNT 7.3 10*3/uL (4.8-10.8)
[2017-10-16 06:56] LABS: ALBUMIN 2.3 gm/dl (3.1-4.5); CREATININE 2.07 mg/dL (0.55-1.02); POTASSIUM 4.5 mmol/L (3.5-5.1)
[2017-10-16 06:57] LABS: PHOSPHOROUS 3.7 mg/dL (2.5-4.9)
[2017-10-16 08:38] VITALS: BP 122/68
[2017-10-16 20:27] VITALS: BP 138/55
[2017-10-17 07:56] VITALS: BP 136/62
[2017-10-17 20:55] VITALS: BP 150/51
[2017-10-18 07:56] VITALS: BP 148/64
[2017-10-18 19:46] VITALS: BP 140/80
[2017-10-19 07:54] VITALS: BP 144/68
[2017-10-19 20:30] VITALS: BP 154/50
[2017-10-20 07:46] VITALS: BP 136/72
[2017-10-20] MEDS ORDERED: RISPERIDONE0.5 MG PO (09:10)
[2017-10-20] MEDS ORDERED: EXELON13.3 MG/21 T (09:10)
[2017-10-20] MEDS ORDERED: DULOXETINE HCL20 MG PO (09:10)
[2017-10-20] MEDS ORDERED: RISPERIDONE1 MG PO (09:10)
[2017-10-20] MEDS ORDERED: MEMANTINE HCL10 MG PO (09:10)
[2017-10-20] MEDS ORDERED: FLUCONAZOLE100 MG PO (09:47)
[2017-10-20 21:19] VITALS: BP 146/51
[2017-10-21 08:00] VITALS: BP 137/52
== END 2017-10-21 12:36 | DRG 56 ==
LOC: 3N 16:17
PROVIDERS: Psychiatry & Neurology Psychiatry; Registered Nurse
DX: G30.9 Alzheimer's disease, unspecified (principal); E11.00 Type 2 diabetes mellitus with hyperosmolarity without nonketotic hyperglycemic-hyperosmolar coma (NKHHC); E44.0 Moderate protein-calorie malnutrition; F33.3 Major depressive disorder, recurrent, severe with psychotic symptoms; E11.22 Type 2 diabetes mellitus with diabetic chronic kidney disease; I13.0 Hypertensive heart and chronic kidney disease with heart failure and stage 1 through stage 4 chronic kidney disease, or unspecified chronic kidney disease; I50.32 Chronic diastolic (congestive) heart failure; F23 Brief psychotic disorder; Z68.27 Body mass index [BMI] 27.0-27.9, adult; F02.80 Dementia in other diseases classified elsewhere, unspecified severity, without behavioral disturbance, psychotic disturbance, mood disturbance, and anxiety; N18.3 Chronic kidney disease, stage 3 (moderate); I10 Essential (primary) hypertension; J44.9 Chronic obstructive pulmonary disease, unspecified; E78.2 Mixed hyperlipidemia; D50.9 Iron deficiency anemia, unspecified; R26.2 Difficulty in walking, not elsewhere classified; K21.9 Gastro-esophageal reflux disease without esophagitis; K57.90 Diverticulosis of intestine, part unspecified, without perforation or abscess without bleeding; Z90.49 Acquired absence of other specified parts of digestive tract; Z90.710 Acquired absence of both cervix and uterus; Z86.19 Personal history of other infectious and parasitic diseases; Z87.891 Personal history of nicotine dependence; Z98.49 Cataract extraction status, unspecified eye; Z82.49 Family history of ischemic heart disease and other diseases of the circulatory system; Z85.3 Personal history of malignant neoplasm of breast; Z87.440 Personal history of urinary (tract) infections; Z83.3 Family history of diabetes mellitus; Z80.3 Family history of malignant neoplasm of breast; Z88.8 Allergy status to other drugs, medicaments and biological substances; Z79.899 Other long term (current) drug therapy; Z79.4 Long term (current) use of insulin

== ENCOUNTER 2017-10-24 13:07 | Emergency (ER) | payer OTHER ==
[~2017-10-24] VITALS: Ht 167.6 cm; Wt 72.6 kg
[2017-10-24 13:07] VITALS: BP 134/55
[~2017-10-24 13:07] MED LIST changes: +DULOXETINE HCL20 MG PO; +EXELON1 EAC1 TD; +EXELON13.3 MG/21 T; +HALDOL5 MG/1 ML IJ; +MEMANTINE HCL10 MG PO; +RISPERDAL0.25 MG PO; +RISPERIDONE0.5 MG PO; +RISPERIDONE1 MG PO
[2017-10-24 13:36] LABS: BASO % 0.5 % (0.0-1.0); EOS # 0.2 10*3/uL (0.0-0.4); EOS % 1.8 % (1.0-4.0); HEMATOCRIT 30.3 % (37.0-47.0); HEMOGLOBIN 9.1 g/dl (12.0-16.0); LYMPH % 11.9 % (27.0-41.0); MEAN CELL VOLUME 81.5 fl (81.0-99.0); MEAN CORPUSCULAR HGB 24.5 pg (27.0-31.0); MEAN PLATELET VOLUME 11.2 fl (9.6-12.3); MONO # 0.7 10*3/uL (0.1-1.0); MONO % 8.4 % (3.0-9.0); NEUT # 6.5 10*3/uL (2.3-7.9); NEUT % 76.8 % (47.0-73.0); PLATELET COUNT AUTOMATED 213 10*3/uL (130-400); RED BLOOD COUNT 3.72 10*6/uL (4.10-5.10); RED CELL DISTRI WIDTH 19.6 % (0-14.5); WHITE BLOOD COUNT 8.4 10*3/uL (4.8-10.8)
[2017-10-24 13:44] LABS: ACT PARTIAL THROMBO TIME 19.4 SECONDS (20.8-31.5); INTERNATIONAL NORM RATIO 1.1 (2.0-3.5)
[2017-10-24 13:56] LABS: ALBUMIN 2.2 gm/dl (3.1-4.5); ALKALINE PHOSPHATASE 124 U/L (45-117); BUN 20 mg/dl (7-24); CHLORIDE 109 mmol/L (98-107); CREATININE 1.64 mg/dL (0.55-1.02); SGOT/AST 20 IU/L (3-35); SGPT/ALT 13 U/L (12-78); SODIUM 141 mmol/L (136-145); TOTAL PROTEIN 5.7 gm/dL (6.4-8.2)
[2017-10-24 13:59] LABS: BILIRUBIN NEGATIVE (NEGATIVE); BLOOD NEGATIVE (NEGATIVE); CLARITY CLEAR (CLEAR); COLOR YELLOW (YELLOW); GLUCOSE NEGATIVE (NEGATIVE); KETONE NEGATIVE (NEGATIVE); LEUKO ESTERASE NEGATIVE (NEGATIVE); NITRITE NEGATIVE (NEGATIVE); UROBILINOGEN 0.2 E.U./dl (0.2-1.0)
[2017-10-24 14:10] LABS: TROPONIN I < 0.015 ng/ml (<0.045)
[2017-10-24 14:15] LABS: BACTERIA TRACE; EPITHELIAL CELLS 35-40; WBC 0-2 wbc/hpf (0-5)
== END 2017-10-24 14:59 | disposition home or self-care (01) ==
LOC: ED 13:07
PROVIDERS: Nurse Practitioner Family
DX: R53.83 Other fatigue (principal); T43.595A Adverse effect of other antipsychotics and neuroleptics, initial encounter; I13.0 Hypertensive heart and chronic kidney disease with heart failure and stage 1 through stage 4 chronic kidney disease, or unspecified chronic kidney disease; E11.22 Type 2 diabetes mellitus with diabetic chronic kidney disease; N18.3 Chronic kidney disease, stage 3 (moderate); I50.32 Chronic diastolic (congestive) heart failure; K21.9 Gastro-esophageal reflux disease without esophagitis; E78.5 Hyperlipidemia, unspecified; J44.9 Chronic obstructive pulmonary disease, unspecified; Z87.891 Personal history of nicotine dependence; Z90.89 Acquired absence of other organs; Z90.710 Acquired absence of both cervix and uterus; Z85.3 Personal history of malignant neoplasm of breast; Z90.49 Acquired absence of other specified parts of digestive tract; Z98.890 Other specified postprocedural states; Z79.899 Other long term (current) drug therapy; Z79.4 Long term (current) use of insulin; Z88.5 Allergy status to narcotic agent; Y92.9 Unspecified place or not applicable

== ENCOUNTER 2017-11-01 20:07 | Inpatient (IN) | payer OTHER ==
[~2017-11-01] VITALS: Ht 154.9 cm; Wt 74.4 kg
--- NOTE | ~2017-11-01 | CON ---
[place], [place] REPORT OF CONSULTATION NAME: RODRIGO ORTEGA UNIT #: [id number] ROOM: 501 DOCTOR: YOLY MCKEON MD BIRTHDATE: [birth year] DOS: 11/02/2017 PSYCHIATRIC CONSULTATION CHIEF COMPLAINT: It stinks and here, I need out of here." HISTORY OF PRESENT ILLNESS: This is an 87-year-old white female well known to me from multiple psychiatric admissions to the [facility] Unit. The patient had recently returned to her long-term care facility at the [facility] and subsequently sustained an acute mental status change. EMS were called because supposedly the patient's blood glucose level was low. Upon arrival; however, when they checked her glucose, it was 125. Nonetheless, the patient was extremely somnolent and was hard to arouse. They did give her Narcan and she responded immediately. The patient was brought by EMS to the Emergency Room where the patient continued to be extremely labile, yelling out nonstop and very paranoid and delusional. The patient was subsequently admitted to the ICU for observation. Her behavior continued to escalate and nonstop to the point where she was yelling and disruptive to the entire rico milieu. An attempt to give her p.r.n. medication was ineffective. The Ativan that was given IM only seemed to worsen her overall level of agitation. The patient was deemed medically stable enough to be stepped down to the fifth floor and continues to exhibit marked mood lability. PAST MEDICAL HISTORY: Remarkable for congestive heart failure, chronic kidney disease stage 3, COPD, diabetes, diverticulosis, GERD, hiatal hernia, hyperlipidemia, hypertension, pulmonary fibrosis, a history of breast cancer. MENTAL STATUS: The patient is alert and oriented to self only. Mood is extremely labile. Her responses are often inappropriate. She at times responded inappropriately. She tended to be rather terse and angry with her responses. She processes information slowly and short term memory has gaps. DIAGNOSIS: Brief psychotic disorder. PLAN: I have restarted her on Exelon patch 4.6 mg a day along with Namenda 5 mg a day. Neither of these should adversely affect her mental status. I will start her on Vraylar 1.5 mg at bedtime as a newer antipsychotic mood stabilizer that should improve her overall level of function. I have also given PRNs of Vistaril 50 mg p.o. and Geodon 10 mg IM to utilize to help her stay under control. Once you feel that she is medically stable, I would be happy to admit her to the [facility] to once again attempt to re-stabilize her. [place], [place] REPORT OF CONSULTATION NAME: RODRIGO ORTEGA UNIT #: [id number] ROOM: [facility] DOCTOR: YOLY MCKEON MD BIRTHDATE: [birth year] YOLY MCKEON MD CM:CONSTR:REPORT OF CONSULTATION 1101 11/02/17 1114 interface
[2017-11-01 20:07] VITALS: BP 109/51
[~2017-11-01 20:07] MED LIST changes: +NOVOLOG FL100 UNIT/1 SC; -NOVOLOG MI100 UNIT/2 SQ
[2017-11-01 20:42] LABS: BASO # 0.1 10*3/uL (0.0-0.1); BASO % 0.3 % (0.0-1.0); EOS # 0.1 10*3/uL (0.0-0.4); EOS % 0.5 % (1.0-4.0); HEMATOCRIT 29.6 % (37.0-47.0); HEMOGLOBIN 8.7 g/dl (12.0-16.0); LYMPH # 1.1 10*3/uL (1.3-4.4); LYMPH % 4.7 % (27.0-41.0); MEAN CELL VOLUME 81.8 fl (81.0-99.0); MEAN CORPUSCULAR HGB CONC 29.4 g/dl (33.0-37.0); MEAN PLATELET VOLUME 11.4 fl (9.6-12.3); MONO # 1.5 10*3/uL (0.1-1.0); MONO % 6.5 % (3.0-9.0); NEUT # 19.4 10*3/uL (2.3-7.9); NEUT % 87.5 % (47.0-73.0); PLATELET COUNT AUTOMATED 265 10*3/uL (130-400); RED BLOOD COUNT 3.62 10*6/uL (4.10-5.10); RED CELL DISTRI WIDTH 19.1 % (0-14.5); WHITE BLOOD COUNT 22.2 10*3/uL (4.8-10.8)
[2017-11-01 20:51] LABS: INTERNATIONAL NORM RATIO 1.1 (2.0-3.5)
[2017-11-01 21:02] LABS: ALBUMIN 2.4 gm/dl (3.1-4.5); ALKALINE PHOSPHATASE 134 U/L (45-117); BUN 23 mg/dl (7-24); CHLORIDE 110 mmol/L (98-107); CREATININE 2.19 mg/dL (0.55-1.02); POTASSIUM 3.8 mmol/L (3.5-5.1); SGOT/AST 24 IU/L (3-35); SGPT/ALT 14 U/L (12-78); SODIUM 144 mmol/L (136-145)
[2017-11-01 21:03] LABS: TROPONIN I < 0.015 ng/ml (<0.045)
[2017-11-01 21:06] VITALS: BP 108/46
[2017-11-01 21:06] LABS: BILIRUBIN 1+ (NEGATIVE); BLOOD 2+ (NEGATIVE); CLARITY CLOUDY (CLEAR); COLOR YELLOW (YELLOW); GLUCOSE NEGATIVE (NEGATIVE); KETONE TRACE (NEGATIVE); LEUKO ESTERASE 2+ (NEGATIVE); NITRITE NEGATIVE (NEGATIVE); SPECIFIC GRAVITY >= 1.030 (1.005-1.030); UROBILINOGEN 0.2 E.U./dl (0.2-1.0)
[2017-11-01 21:19] LABS: BACTERIA 3+; WBC TNTC wbc/hpf (0-5)
[2017-11-01 21:27] LABS: URINE AMPHETAMINES < 1000 (1000ng/ml); URINE BARBITURATES < 200 (200ng/ml); URINE BENZODIAZEPINES < 200 (200ng/ml); URINE CANNABINOIDS (THC) < 50 (50ng/ml); URINE COCAINE < 300 (300ng/ml); URINE METHADONE < 300 (300ng/ml); URINE OPIATES < 300 (300ng/ml)
[2017-11-01 21:31] LABS: URINE PHENCYCLIDINE < 25 (25ng/ml)
[2017-11-01 21:42] VITALS: BP 104/50
[2017-11-01 22:14] VITALS: BP 127/54
[2017-11-01 22:29] VITALS: BP 117/63
[2017-11-01 23:25] VITALS: BP 116/52
[2017-11-02] VITALS: BP 108/77
[2017-11-02] MEDS ORDERED: ACETAMINOPHEN325 M2 PO (00:08)
[2017-11-02 06:13] LABS: BASO # 0.1 10*3/uL (0.0-0.1); BASO % 0.4 % (0.0-1.0); EOS # 0.2 10*3/uL (0.0-0.4); EOS % 1.7 % (1.0-4.0); HEMATOCRIT 27.7 % (37.0-47.0); HEMOGLOBIN 8.1 g/dl (12.0-16.0); LYMPH # 1.2 10*3/uL (1.3-4.4); LYMPH % 10.7 % (27.0-41.0); MEAN CELL VOLUME 82.4 fl (81.0-99.0); MEAN CORPUSCULAR HGB 24.1 pg (27.0-31.0); MEAN CORPUSCULAR HGB CONC 29.2 g/dl (33.0-37.0); MEAN PLATELET VOLUME 11.8 fl (9.6-12.3); MONO # 0.8 10*3/uL (0.1-1.0); MONO % 6.7 % (3.0-9.0); NEUT # 9.2 10*3/uL (2.3-7.9); NEUT % 80.2 % (47.0-73.0); PLATELET COUNT AUTOMATED 187 10*3/uL (130-400); RED BLOOD COUNT 3.36 10*6/uL (4.10-5.10); WHITE BLOOD COUNT 11.4 10*3/uL (4.8-10.8)
[2017-11-02 06:31] LABS: ALBUMIN 2.2 gm/dl (3.1-4.5); CREATININE 1.97 mg/dL (0.55-1.02); POTASSIUM 4.1 mmol/L (3.5-5.1)
[2017-11-02 06:32] LABS: ACT PARTIAL THROMBO TIME 19.2 SECONDS (20.8-31.5)
[2017-11-02 06:36] LABS: THYROID STIM HORMONE (HS) 1.03 uIU/ml (0.358-4.75); TOTAL PROTEIN 5.5 gm/dL (6.4-8.2)
[2017-11-02 07:50] LABS: VITAMIN D, 25-HYDROXY 44.6 ng/mL (30-100)
[2017-11-02 08:00] VITALS: BP 131/50
[2017-11-02 12:15] VITALS: BP 123/46
[2017-11-02 16:00] VITALS: BP 123/45
[2017-11-02 20:00] VITALS: BP 149/47
[2017-11-03] VITALS: BP 109/35; BP 164/99
[2017-11-03 08:00] VITALS: BP 147/68
[2017-11-03 08:20] LABS: BASO # 0.1 10*3/uL (0.0-0.1); BASO % 0.7 % (0.0-1.0); EOS # 0.3 10*3/uL (0.0-0.4); EOS % 3.3 % (1.0-4.0); HEMATOCRIT 26.6 % (37.0-47.0); HEMOGLOBIN 7.7 g/dl (12.0-16.0); LYMPH # 1.3 10*3/uL (1.3-4.4); LYMPH % 14.1 % (27.0-41.0); MEAN CELL VOLUME 81.8 fl (81.0-99.0); MEAN CORPUSCULAR HGB 23.7 pg (27.0-31.0); MEAN CORPUSCULAR HGB CONC 28.9 g/dl (33.0-37.0); MEAN PLATELET VOLUME 11.8 fl (9.6-12.3); MONO # 0.8 10*3/uL (0.1-1.0); MONO % 9.2 % (3.0-9.0); NEUT # 6.6 10*3/uL (2.3-7.9); NEUT % 72.4 % (47.0-73.0); PLATELET COUNT AUTOMATED 229 10*3/uL (130-400); RED BLOOD COUNT 3.25 10*6/uL (4.10-5.10); RED CELL DISTRI WIDTH 19.1 % (0-14.5); WHITE BLOOD COUNT 9.2 10*3/uL (4.8-10.8)
[2017-11-03 08:33] LABS: ALBUMIN 2.2 gm/dl (3.1-4.5)
[2017-11-03 08:39] LABS: CREATININE 1.66 mg/dL (0.55-1.02); TOTAL PROTEIN 5.5 gm/dL (6.4-8.2)
[2017-11-03 12:00] VITALS: BP 172/63
[2017-11-03 16:00] VITALS: BP 122/83
[2017-11-03 20:00] VITALS: BP 142/58
[2017-11-04] VITALS: BP 151/51
[2017-11-04 08:00] VITALS: BP 147/70
[2017-11-04 14:00] VITALS: BP 145/66
[2017-11-04 19:59] VITALS: BP 142/83
[2017-11-05] VITALS: BP 160/52
[2017-11-05 07:25] LABS: BASO # 0.1 10*3/uL (0.0-0.1); BASO % 0.8 % (0.0-1.0); EOS # 0.3 10*3/uL (0.0-0.4); EOS % 4.7 % (1.0-4.0); HEMOGLOBIN 7.6 g/dl (12.0-16.0); LYMPH # 0.9 10*3/uL (1.3-4.4); LYMPH % 13.6 % (27.0-41.0); MEAN CORPUSCULAR HGB CONC 29.2 g/dl (33.0-37.0); MEAN PLATELET VOLUME 11.7 fl (9.6-12.3); MONO # 0.6 10*3/uL (0.1-1.0); MONO % 9.2 % (3.0-9.0); NEUT # 4.7 10*3/uL (2.3-7.9); NEUT % 71.4 % (47.0-73.0); PLATELET COUNT AUTOMATED 224 10*3/uL (130-400); RED BLOOD COUNT 3.17 10*6/uL (4.10-5.10); WHITE BLOOD COUNT 6.5 10*3/uL (4.8-10.8)
[2017-11-05 07:38] LABS: CREATININE 1.11 mg/dL (0.55-1.02); PHOSPHOROUS 2.8 mg/dL (2.5-4.9); POTASSIUM 3.7 mmol/L (3.5-5.1); TOTAL PROTEIN 5.5 gm/dL (6.4-8.2)
[2017-11-05 08:00] VITALS: BP 146/49
[2017-11-05 16:00] VITALS: BP 128/65
[2017-11-05 20:00] VITALS: BP 148/58
[2017-11-06 00:01] VITALS: BP 148/54
[2017-11-06 07:38] LABS: HEMATOCRIT 30.4 % (37.0-47.0); HEMOGLOBIN 9.1 g/dl (12.0-16.0); MEAN CORPUSCULAR HGB 23.6 pg (27.0-31.0); MEAN CORPUSCULAR HGB CONC 29.9 g/dl (33.0-37.0); MEAN PLATELET VOLUME 12.2 fl (9.6-12.3); PLATELET COUNT AUTOMATED 180 10*3/uL (130-400); RED BLOOD COUNT 3.85 10*6/uL (4.10-5.10); RED CELL DISTRI WIDTH 19.2 % (0-14.5); WHITE BLOOD COUNT 7.5 10*3/uL (4.8-10.8)
[2017-11-06 08:00] VITALS: BP 140/66
[2017-11-06 08:01] LABS: BASOPHILS 1 % (0-1); PLATELET SUFFICIENCY NORMAL (NORMAL); TOTAL CELLS COUNTED 100 #CELLS
[2017-11-06 08:18] LABS: BUN 8 mg/dl (7-24); CHLORIDE 110 mmol/L (98-107); CREATININE 1.04 mg/dL (0.55-1.02); POTASSIUM 3.4 mmol/L (3.5-5.1); SODIUM 141 mmol/L (136-145)
[2017-11-06 12:00] VITALS: BP 149/58
[2017-11-06] MEDS ORDERED: NAMENDA-5 PO (13:27)
[2017-11-06] MEDS ORDERED: LORAZEPAM1 MG PO (13:27)
[2017-11-06] MEDS ORDERED: ATARAX,VISTARIL50 MG PO (13:27)
[2017-11-06] MEDS ORDERED: VRAYLAR1.5 MG PO (13:27)
[2017-11-06] MEDS ORDERED: RIVASTIGMINE1 EACH T (13:27)
== END 2017-11-06 16:14 | DRG 682 ==
LOC: ED 20:07 → EDHOLD 21:39 → 5E 21:39 → 4E 22:07 → ICCU 22:49 → 5E 11-02 10:43
PROVIDERS: Emergency Medicine; Internal Medicine; Student in an Organized Health Care Education/Training Program
DX: N17.0 Acute kidney failure with tubular necrosis (principal); G93.41 Metabolic encephalopathy; E43 Unspecified severe protein-calorie malnutrition; L89.323 Pressure ulcer of left buttock, stage 3; E87.8 Other disorders of electrolyte and fluid balance, not elsewhere classified; J84.10 Pulmonary fibrosis, unspecified; E11.65 Type 2 diabetes mellitus with hyperglycemia; I13.0 Hypertensive heart and chronic kidney disease with heart failure and stage 1 through stage 4 chronic kidney disease, or unspecified chronic kidney disease; I50.32 Chronic diastolic (congestive) heart failure; N39.0 Urinary tract infection, site not specified; F23 Brief psychotic disorder; D64.9 Anemia, unspecified; E83.42 Hypomagnesemia; N18.3 Chronic kidney disease, stage 3 (moderate); K44.9 Diaphragmatic hernia without obstruction or gangrene; K57.90 Diverticulosis of intestine, part unspecified, without perforation or abscess without bleeding; D72.825 Bandemia; K21.9 Gastro-esophageal reflux disease without esophagitis; E78.5 Hyperlipidemia, unspecified; J44.9 Chronic obstructive pulmonary disease, unspecified; Z16.12 Extended spectrum beta lactamase (ESBL) resistance; Z66 Do not resuscitate; Z51.5 Encounter for palliative care; Z88.8 Allergy status to other drugs, medicaments and biological substances; Z79.899 Other long term (current) drug therapy; Z79.4 Long term (current) use of insulin; Z85.3 Personal history of malignant neoplasm of breast; Z80.3 Family history of malignant neoplasm of breast; Z90.11 Acquired absence of right breast and nipple; Z90.49 Acquired absence of other specified parts of digestive tract; Z90.710 Acquired absence of both cervix and uterus; Z98.42 Cataract extraction status, left eye; Z98.41 Cataract extraction status, right eye; Z87.891 Personal history of nicotine dependence; Z82.49 Family history of ischemic heart disease and other diseases of the circulatory system; Z83.3 Family history of diabetes mellitus; Z68.28 Body mass index [BMI] 28.0-28.9, adult

== ENCOUNTER → 2017-11-07 | Outpatient (CLI) | payer OTHER ==
[~2017-11-07] MED LIST changes: +ACETAMINOPHEN325 M2 PO; +ATARAX,VISTARIL50 MG PO; +LORAZEPAM1 MG PO; +NAMENDA-5 PO; +VRAYLAR1.5 MG PO
[2017-11-07 21:20] VITALS: BP 154/64
[2017-11-07 21:35] VITALS: BP 147/62
[2017-11-07 22:30] VITALS: BP 145/85
[2017-11-07 23:30] VITALS: BP 167/60
[2017-11-08 01:00] VITALS: BP 150/55
[2017-11-08 01:10] VITALS: BP 164/61
[2017-11-08 02:10] VITALS: BP 159/62
== END ==
LOC: TRNFUSION 15:51
DX: D64.9 Anemia, unspecified (principal)

== ENCOUNTER 2017-12-08 23:25 | Inpatient (IN) | payer OTHER ==
[~2017-12-08] VITALS: Ht 154.9 cm; Wt 64.0 kg
--- NOTE | ~2017-12-08 | CON ---
[place], [place] REPORT OF CONSULTATION NAME: RODRIGO ORTEGA Blake UNIT #: [id number] ROOM: 511 DOCTOR: NOEL BIRTHDATE: [birth year] DOS: 12/14/2017 [facility] Area mcc. BUCK COHEN CNP JONG JOHNSON MD CM:CONSTR:REPORT OF CONSULTATION 2104 12/15/17 0117 interface
--- NOTE | ~2017-12-08 | CON ---
[place], [place] REPORT OF CONSULTATION NAME: RODRIGO ORTEGA UNIT #: [id number] ROOM: 511 DOCTOR: NOEL POTTER,OCTOBER BIRTHDATE: [birth year] DOS: HISTORY OF PRESENT ILLNESS: The patient is an 87-year-old female who is severely demented. She is yelling out continuously. She thinks someone killed her uncle and is going to kill her father. She was admitted on the with a low blood sugar of 22 and seizure from the [facility] longterm. She is a DNRCC. Her admitting blood cultures are now growing Staph warneri from 2 different sets at 2 different times. She does have a MediPort in place of indeterminate age. ID is consulted for bacteremia. She has been receiving vancomycin and Rocephin. She was recently hospitalized and treated approximately a month ago for ESBL E. coli UTI. She has had multiple urine cultures done. She is incontinent of urine. Does not have a Sharma catheter in. History is obtained per review of the [place] chart. The patient herself is again quite demented and unable to contribute at all to any reliable review of systems or history. She has been afebrile since admitted. PAST MEDICAL HISTORY: As above as well as metabolic encephalopathy, acute renal failure, chronic kidney disease stage 3, diabetes, hypertension, hyperlipidemia, COPD, CHF, GERD, breast cancer status post mastectomy, depression, pulmonary fibrosis, cataract extraction, cholecystectomy, hysterectomy. SOCIAL HISTORY: She is a reformed smoker, details unknown. No alcohol or illicit drug use. FAMILY MEDICAL HISTORY: Father at the age of 71 with heart disease, diabetes. Mother had breast cancer, at the age of 47, diabetes and CHF. ALLERGIES: Include HYDROCODONE. CURRENT MEDICATIONS: Include vancomycin, Tenormin, Norvasc, Protonix, Zocor, Remeron, Ativan, Vistaril, Lovenox, Rocephin, Zofran. LABORATORY DATA: Cultures as reviewed above. Vancomycin trough 8.5, WBC 6.4, platelets 182. BUN 10, creatinine 0.92. REVIEW OF SYSTEMS: Extremely limited. The patient is very demented and unable to give any review of systems, though she does currently deny pain or shortness of breath. Has no peripheral edema. She is incontinent of bowel and bladder. PHYSICAL EXAMINATION: VITAL SIGNS: Temperature 97.2, pulse 70, respirations 20, BP 155/60. GENERAL: An 87-year-old female yelling continuously regarding someone trying to kill her father. HEENT: Normocephalic. Mucous membranes somewhat tacky. Edentulous. No thrush. NECK: No cervical lymphadenopathy. LUNGS: Clear to auscultation bilaterally. Respirations are somewhat labored with yelling. HEART: Regular rhythm. No murmur appreciated. Left chest MediPort is [place], [place] REPORT OF CONSULTATION NAME: RODRIGO ORTEGA UNIT #: [id number] ROOM: 511 DOCTOR: NOEL POTTEROCTOBER BIRTHDATE: [birth year] accessed. Dressing dry and intact. ABDOMEN: Soft, nondistended, seems nontender, positive bowel sounds. EXTREMITIES: No edema, deformity or cyanosis. SKIN: Warm, dry, free of rashes. ASSESSMENT: Staph warneri bacteremia from 2 different sets at 2 different times. PLAN: She needs to continue the vancomycin. Repeat blood cultures from the MediPort that may need to be removed if any further blood cultures are positive. Stop the Rocephin. Case discussed with Dr. Jong Johnson. We will need an echocardiogram if further blood cultures are positive as well. ADDENDUM After reviewing the chart, labs and microbiology, I agree with the above plans as described. We will follow the patient up clinically and adjust accordingly. BUCK COHEN CNP JONG JOHNSON MD CM:CONSTR:REPORT OF CONSULTATION 1608 12/15/17 0116 interface
--- NOTE | ~2017-12-08 | PR ---
[place], [place] PROGRESS NOTE NAME: RODRIGO ORTEGA UNIT #: [id number] ROOM: 511 DOCTOR: ALEX COE,JONG Carpio BIRTHDATE: [birth year] DOS: 12/14/2017 ADDENDUM After reviewing the chart and labs, I agree with the above plans as described. We will follow the patient up clinically and adjust accordingly. JONG JOHNSON MD CM:PNTRANS 22 [id number] JONG JOHNSON MD 12/15/17 0133 interface
--- NOTE | ~2017-12-08 | PR ---
[place], [place] PROGRESS NOTE NAME: RODRIGO ORTEGA UNIT #: [id number] ROOM: 511 DOCTOR: NOEL POTTER BIRTHDATE: [birth year] DOS: 12/14/2017 SUBJECTIVE: The patient is an 87-year-old female who is being followed for a coagulase-negative Staph bacteremia. She had two bottles of one set from admission grew Staph warneri. Another bottle from another set same day at a different time with thus far identified as coagulase-negative Staph. She is alert, extremely confused, does deny pain as well as shortness of breath per her nurse. She will not give any further review of systems. She is yelling continuously, refusing physical exam. All of her repeat blood cultures remain sterile. She remains on IV vancomycin. She has had no fevers, no emesis and no diarrhea. LABORATORY DATA: Cultures as reviewed above. WBC 6.6, platelets 178, BUN 7, creatinine 0.97. LFTs within normal limits. PHYSICAL EXAMINATION: VITAL SIGNS: Temperature 96.7, pulse 84, respirations 20, BP 147/49. GENERAL: Alert, yelling continuously very limited exam as the patient refuses to allow me to auscultate lungs or heart. CHEST: Left chest MediPort is accessed and dressed. ABDOMEN: Nondistended. EXTREMITIES: No edema. SKIN: Warm, dry, free of rashes. ASSESSMENT: Staphylococcus warneri bacteremia with concern for MediPort infection. Repeat blood cultures remain sterile. If any further turned positive, I would recommend removal of the MediPort. PLAN: Continue vancomycin for now. Case discussed with Dr. Jong Johnson. ADDENDUM After reviewing the chart and labs, I agree with the above plans as described. We will follow the patient up clinically and adjust accordingly. OCTOBER ABBEY COHEN [place], [place] PROGRESS NOTE NAME: RODRIGO ORTEGA UNIT #: [id number] ROOM: 511 DOCTOR: NOEL POTTER BIRTHDATE: [birth year] JONG JOHNSON MD CM:BROOKE 01 [id number] OCTOBER NOEL POTTER 12/15/17 0132 interface
[~2017-12-08 23:25] MED LIST changes: +ZOFRAN4 MG PO
[2017-12-08 23:26] VITALS: BP 112/76
[2017-12-08 23:59] VITALS: BP 103/42
[2017-12-09] VITALS (10 sets, daily range): BP systolic 103–143; BP diastolic 50–80
[2017-12-09 02:19] LABS: BASO # 0.1 10*3/uL (0.0-0.1); BASO % 0.3 % (0.0-1.0); EOS # 0.1 10*3/uL (0.0-0.4); EOS % 0.3 % (1.0-4.0); HEMATOCRIT 44.6 % (37.0-47.0); HEMOGLOBIN 13.7 g/dl (12.0-16.0); LYMPH # 2.4 10*3/uL (1.3-4.4); LYMPH % 11.2 % (27.0-41.0); MEAN CELL VOLUME 84.5 fl (81.0-99.0); MEAN CORPUSCULAR HGB 25.9 pg (27.0-31.0); MEAN CORPUSCULAR HGB CONC 30.7 g/dl (33.0-37.0); MONO # 1.2 10*3/uL (0.1-1.0); MONO % 5.4 % (3.0-9.0); NEUT # 17.5 10*3/uL (2.3-7.9); NEUT % 82.4 % (47.0-73.0); PLATELET COUNT AUTOMATED 317 10*3/uL (130-400); RED BLOOD COUNT 5.28 10*6/uL (4.10-5.10); RED CELL DISTRI WIDTH 18.3 % (0-14.5); WHITE BLOOD COUNT 21.2 10*3/uL (4.8-10.8)
[2017-12-09 02:27] LABS: BILIRUBIN NEGATIVE (NEGATIVE); BLOOD NEGATIVE (NEGATIVE); CLARITY SL CLOUDY (CLEAR); COLOR YELLOW (YELLOW); GLUCOSE NEGATIVE (NEGATIVE); KETONE TRACE (NEGATIVE); LEUKO ESTERASE TRACE (NEGATIVE); NITRITE NEGATIVE (NEGATIVE); SPECIFIC GRAVITY >= 1.030 (1.005-1.030); UROBILINOGEN 0.2 E.U./dl (0.2-1.0)
[2017-12-09 02:53] LABS: BACTERIA TRACE
[2017-12-09 03:05] LABS: ALBUMIN 2.9 gm/dl (3.1-4.5); ALKALINE PHOSPHATASE 120 U/L (45-117); BUN 29 mg/dl (7-24); CHLORIDE 109 mmol/L (98-107); CREATININE 1.84 mg/dL (0.55-1.02); POTASSIUM 3.8 mmol/L (3.5-5.1); SGOT/AST 22 IU/L (3-35); SGPT/ALT 14 U/L (12-78); SODIUM 147 mmol/L (136-145); TOTAL PROTEIN 6.6 gm/dL (6.4-8.2)
[2017-12-09 03:06] LABS: TROPONIN I < 0.015 ng/ml (<0.045)
[2017-12-09 08:41] LABS: HEMATOCRIT 43.9 % (37.0-47.0); HEMOGLOBIN 13.5 g/dl (12.0-16.0); MEAN CELL VOLUME 85.4 fl (81.0-99.0); MEAN CORPUSCULAR HGB 26.3 pg (27.0-31.0); MEAN CORPUSCULAR HGB CONC 30.8 g/dl (33.0-37.0); RED BLOOD COUNT 5.14 10*6/uL (4.10-5.10); RED CELL DISTRI WIDTH 18.6 % (0-14.5); WHITE BLOOD COUNT 20.2 10*3/uL (4.8-10.8)
[2017-12-09 09:22] LABS: PLATELET COUNT AUTOMATED 171 10*3/uL (130-400)
[2017-12-09 09:25] LABS: PLATELET SUFFICIENCY NORMAL (NORMAL); POLYCHROMASIA SLIGHT; TOTAL CELLS COUNTED 100 #CELLS
[2017-12-09 09:32] LABS: ALBUMIN 2.5 gm/dl (3.1-4.5); CREATININE 1.9 mg/dL (0.55-1.02); PHOSPHOROUS 3.7 mg/dL (2.5-4.9); POTASSIUM 4.2 mmol/L (3.5-5.1); TOTAL PROTEIN 6.3 gm/dL (6.4-8.2)
[2017-12-09 10:25] LABS: ACT PARTIAL THROMBO TIME 24.3 SECONDS (20.8-31.5); INTERNATIONAL NORM RATIO 1.1 (2.0-3.5)
[2017-12-09] MEDS ORDERED: MAGNESIUM OXID400 MG PO (14:37)
[2017-12-09] MEDS ORDERED: REMERON15 M2 PO (14:38)
[2017-12-10 00:15] VITALS: BP 133/56
[2017-12-10 07:23] LABS: BASO # 0.1 10*3/uL (0.0-0.1); BASO % 0.6 % (0.0-1.0); EOS # 0.2 10*3/uL (0.0-0.4); LYMPH # 1.4 10*3/uL (1.3-4.4); LYMPH % 12.9 % (27.0-41.0); MEAN CELL VOLUME 84.3 fl (81.0-99.0); MEAN CORPUSCULAR HGB 26.1 pg (27.0-31.0); MEAN PLATELET VOLUME 12.3 fl (9.6-12.3); MONO # 0.8 10*3/uL (0.1-1.0); MONO % 7.5 % (3.0-9.0); NEUT # 8.1 10*3/uL (2.3-7.9); NEUT % 76.6 % (47.0-73.0); PLATELET COUNT AUTOMATED 163 10*3/uL (130-400); RED BLOOD COUNT 4.33 10*6/uL (4.10-5.10); RED CELL DISTRI WIDTH 18.5 % (0-14.5); WHITE BLOOD COUNT 10.6 10*3/uL (4.8-10.8)
[2017-12-10 07:35] LABS: HEMOGLOBIN 11.3 g/dl (12.0-16.0)
[2017-12-10 07:36] LABS: HEMATOCRIT 36.5 % (37.0-47.0)
[2017-12-10 07:44] LABS: POTASSIUM 3.8 mmol/L (3.5-5.1)
[2017-12-10 07:53] LABS: ALBUMIN 2.3 gm/dl (3.1-4.5); CREATININE 1.61 mg/dL (0.55-1.02); PHOSPHOROUS 2.9 mg/dL (2.5-4.9); TOTAL PROTEIN 5.4 gm/dL (6.4-8.2)
[2017-12-10 08:00] VITALS: BP 103/82
[2017-12-10 12:00] VITALS: BP 120/54
[2017-12-10 16:00] VITALS: BP 115/56
[2017-12-10 20:13] VITALS: BP 132/68
[2017-12-11] VITALS: BP 133/989
[2017-12-11 06:34] LABS: BASO # 0.1 10*3/uL (0.0-0.1); BASO % 0.6 % (0.0-1.0); EOS # 0.4 10*3/uL (0.0-0.4); EOS % 4.1 % (1.0-4.0); HEMATOCRIT 37.8 % (37.0-47.0); HEMOGLOBIN 11.7 g/dl (12.0-16.0); LYMPH # 1.9 10*3/uL (1.3-4.4); LYMPH % 21.6 % (27.0-41.0); MEAN CELL VOLUME 83.6 fl (81.0-99.0); MEAN CORPUSCULAR HGB 25.9 pg (27.0-31.0); MEAN PLATELET VOLUME 11.8 fl (9.6-12.3); MONO # 0.8 10*3/uL (0.1-1.0); MONO % 9.1 % (3.0-9.0); NEUT # 5.5 10*3/uL (2.3-7.9); NEUT % 64.1 % (47.0-73.0); PLATELET COUNT AUTOMATED 181 10*3/uL (130-400); RED BLOOD COUNT 4.52 10*6/uL (4.10-5.10); RED CELL DISTRI WIDTH 18.2 % (0-14.5); WHITE BLOOD COUNT 8.6 10*3/uL (4.8-10.8)
[2017-12-11 06:45] LABS: ALBUMIN 2.4 gm/dl (3.1-4.5); CREATININE 1.23 mg/dL (0.55-1.02); TOTAL PROTEIN 5.7 gm/dL (6.4-8.2)
[2017-12-11 08:00] VITALS: BP 104/80
[2017-12-11 12:00] VITALS: BP 134/66
[2017-12-11 16:00] VITALS: BP 127/53
[2017-12-11 20:00] VITALS: BP 148/56
[2017-12-12] VITALS: BP 110/78; BP 147/60
[2017-12-12 07:00] LABS: BASO # 0.1 10*3/uL (0.0-0.1); BASO % 0.7 % (0.0-1.0); EOS # 0.4 10*3/uL (0.0-0.4); EOS % 5.6 % (1.0-4.0); HEMATOCRIT 36.7 % (37.0-47.0); HEMOGLOBIN 11.5 g/dl (12.0-16.0); LYMPH # 1.1 10*3/uL (1.3-4.4); LYMPH % 16.1 % (27.0-41.0); MEAN CELL VOLUME 82.8 fl (81.0-99.0); MEAN CORPUSCULAR HGB CONC 31.3 g/dl (33.0-37.0); MEAN PLATELET VOLUME 11.3 fl (9.6-12.3); MONO # 0.6 10*3/uL (0.1-1.0); MONO % 8.5 % (3.0-9.0); NEUT # 4.7 10*3/uL (2.3-7.9); NEUT % 68.7 % (47.0-73.0); PLATELET COUNT AUTOMATED 177 10*3/uL (130-400); RED BLOOD COUNT 4.43 10*6/uL (4.10-5.10); RED CELL DISTRI WIDTH 18.1 % (0-14.5); WHITE BLOOD COUNT 6.8 10*3/uL (4.8-10.8)
[2017-12-12 07:17] LABS: ALBUMIN 2.4 gm/dl (3.1-4.5); ALKALINE PHOSPHATASE 118 U/L (45-117); BUN 15 mg/dl (7-24); CHLORIDE 110 mmol/L (98-107); CREATININE 0.99 mg/dL (0.55-1.02); POTASSIUM 3.7 mmol/L (3.5-5.1); SGOT/AST 19 IU/L (3-35); SGPT/ALT 12 U/L (12-78); SODIUM 140 mmol/L (136-145); TOTAL PROTEIN 5.6 gm/dL (6.4-8.2)
[2017-12-12 08:00] VITALS: BP 162/70
[2017-12-12 12:00] VITALS: BP 155/67
[2017-12-12 16:00] VITALS: BP 125/79
[2017-12-12 20:00] VITALS: BP 145/53
[2017-12-13 00:36] VITALS: BP 127/65
[2017-12-13 05:55] LABS: BUN 10 mg/dl (7-24); CHLORIDE 110 mmol/L (98-107); CREATININE 0.92 mg/dL (0.55-1.02); PHOSPHOROUS 2.6 mg/dL (2.5-4.9); POTASSIUM 3.5 mmol/L (3.5-5.1); SODIUM 142 mmol/L (136-145)
[2017-12-13 05:56] LABS: BASO % 0.6 % (0.0-1.0); EOS # 0.5 10*3/uL (0.0-0.4); EOS % 7.2 % (1.0-4.0); HEMOGLOBIN 11.1 g/dl (12.0-16.0); LYMPH # 1.2 10*3/uL (1.3-4.4); LYMPH % 18.1 % (27.0-41.0); MEAN CELL VOLUME 84.1 fl (81.0-99.0); MEAN CORPUSCULAR HGB 25.9 pg (27.0-31.0); MEAN CORPUSCULAR HGB CONC 30.8 g/dl (33.0-37.0); MEAN PLATELET VOLUME 11.3 fl (9.6-12.3); MONO # 0.5 10*3/uL (0.1-1.0); MONO % 7.8 % (3.0-9.0); NEUT # 4.2 10*3/uL (2.3-7.9); NEUT % 66.1 % (47.0-73.0); PLATELET COUNT AUTOMATED 182 10*3/uL (130-400); RED BLOOD COUNT 4.28 10*6/uL (4.10-5.10); WHITE BLOOD COUNT 6.4 10*3/uL (4.8-10.8)
[2017-12-13 08:00] VITALS: BP 166/68
[2017-12-13 12:00] VITALS: BP 155/60; BP 94/55
[2017-12-13 16:00] VITALS: BP 148/65
[2017-12-13 20:00] VITALS: BP 129/94
[2017-12-14] VITALS: BP 147/96
[2017-12-14 05:51] LABS: BASO % 0.5 % (0.0-1.0); EOS # 0.3 10*3/uL (0.0-0.4); EOS % 5.2 % (1.0-4.0); HEMATOCRIT 35.2 % (37.0-47.0); LYMPH # 1.4 10*3/uL (1.3-4.4); LYMPH % 20.7 % (27.0-41.0); MEAN CELL VOLUME 82.4 fl (81.0-99.0); MEAN CORPUSCULAR HGB 25.8 pg (27.0-31.0); MEAN CORPUSCULAR HGB CONC 31.3 g/dl (33.0-37.0); MEAN PLATELET VOLUME 10.9 fl (9.6-12.3); MONO # 0.7 10*3/uL (0.1-1.0); MONO % 10.2 % (3.0-9.0); NEUT # 4.2 10*3/uL (2.3-7.9); NEUT % 63.2 % (47.0-73.0); PLATELET COUNT AUTOMATED 178 10*3/uL (130-400); RED BLOOD COUNT 4.27 10*6/uL (4.10-5.10); WHITE BLOOD COUNT 6.6 10*3/uL (4.8-10.8)
[2017-12-14 06:08] LABS: ALBUMIN 2.3 gm/dl (3.1-4.5); BUN 7 mg/dl (7-24); CHLORIDE 111 mmol/L (98-107); CREATININE 0.97 mg/dL (0.55-1.02); PHOSPHOROUS 2.5 mg/dL (2.5-4.9); POTASSIUM 3.2 mmol/L (3.5-5.1); SGOT/AST 11 IU/L (3-35); SGPT/ALT 12 U/L (12-78); SODIUM 142 mmol/L (136-145)
[2017-12-14 06:10] LABS: ALKALINE PHOSPHATASE 104 U/L (45-117); TOTAL PROTEIN 5.4 gm/dL (6.4-8.2)
[2017-12-14 08:00] VITALS: BP 151/98
[2017-12-14 12:00] VITALS: BP 141/87
[2017-12-14 16:00] VITALS: BP 155/80
[2017-12-14 20:00] VITALS: BP 147/49
[2017-12-15] VITALS: BP 132/76
[2017-12-15 06:54] LABS: BASO # 0.1 10*3/uL (0.0-0.1); BASO % 0.8 % (0.0-1.0); EOS # 0.3 10*3/uL (0.0-0.4); EOS % 4.4 % (1.0-4.0); HEMATOCRIT 37.6 % (37.0-47.0); HEMOGLOBIN 11.6 g/dl (12.0-16.0); LYMPH # 1.6 10*3/uL (1.3-4.4); LYMPH % 23.5 % (27.0-41.0); MEAN CELL VOLUME 84.9 fl (81.0-99.0); MEAN CORPUSCULAR HGB 26.2 pg (27.0-31.0); MEAN CORPUSCULAR HGB CONC 30.9 g/dl (33.0-37.0); MEAN PLATELET VOLUME 10.7 fl (9.6-12.3); MONO # 0.7 10*3/uL (0.1-1.0); MONO % 9.8 % (3.0-9.0); NEUT # 4.1 10*3/uL (2.3-7.9); NEUT % 61.2 % (47.0-73.0); PLATELET COUNT AUTOMATED 179 10*3/uL (130-400); RED BLOOD COUNT 4.43 10*6/uL (4.10-5.10); RED CELL DISTRI WIDTH 18.3 % (0-14.5); WHITE BLOOD COUNT 6.7 10*3/uL (4.8-10.8)
[2017-12-15 07:04] LABS: CREATININE 1.24 mg/dL (0.55-1.02); POTASSIUM 3.8 mmol/L (3.5-5.1)
[2017-12-15 08:00] VITALS: BP 147/50
[2017-12-15 12:00] VITALS: BP 154/52
[2017-12-15 16:00] VITALS: BP 164/73
[2017-12-15 20:00] VITALS: BP 166/65
[2017-12-16] VITALS: BP 104/75
[2017-12-16 05:08] LABS: ALBUMIN 2.2 gm/dl (3.1-4.5); CREATININE 1.6 mg/dL (0.55-1.02); PHOSPHOROUS 2.2 mg/dL (2.5-4.9); POTASSIUM 3.9 mmol/L (3.5-5.1); TOTAL PROTEIN 5.5 gm/dL (6.4-8.2)
[2017-12-16 08:00] VITALS: BP 125/98
[2017-12-16 12:00] VITALS: BP 113/54
[2017-12-16 16:00] VITALS: BP 155/92
[2017-12-16 20:08] VITALS: BP 146/56
[2017-12-17] VITALS: BP 159/68
[2017-12-17 07:05] LABS: ALBUMIN 2.3 gm/dl (3.1-4.5); CREATININE 1.79 mg/dL (0.55-1.02); PHOSPHOROUS 3.1 mg/dL (2.5-4.9); POTASSIUM 3.8 mmol/L (3.5-5.1)
[2017-12-17 08:00] VITALS: BP 156/61
[2017-12-17] MEDS ORDERED: ATIVAN0.5 MG PO (10:16)
[2017-12-17] MEDS ORDERED: VANCO 1 GR1 GM/250 M IV (10:16)
[2017-12-17 12:00] VITALS: BP 139/62
== END 2017-12-17 14:57 | disposition other institution (70) | DRG 871 ==
LOC: ED 23:25 → EDHOLD 12-09 04:08 → 5E 12-09 04:08
PROVIDERS: Emergency Medicine; Family Medicine; Internal Medicine; Internal Medicine Nephrology; Registered Nurse
DX: A41.9 Sepsis, unspecified organism (principal); G93.41 Metabolic encephalopathy; N17.9 Acute kidney failure, unspecified; E44.0 Moderate protein-calorie malnutrition; R13.10 Dysphagia, unspecified; E87.0 Hyperosmolality and hypernatremia; I50.32 Chronic diastolic (congestive) heart failure; I13.0 Hypertensive heart and chronic kidney disease with heart failure and stage 1 through stage 4 chronic kidney disease, or unspecified chronic kidney disease; Z80.3 Family history of malignant neoplasm of breast; N18.3 Chronic kidney disease, stage 3 (moderate); F03.90 Unspecified dementia, unspecified severity, without behavioral disturbance, psychotic disturbance, mood disturbance, and anxiety; E87.8 Other disorders of electrolyte and fluid balance, not elsewhere classified; E83.42 Hypomagnesemia; E78.5 Hyperlipidemia, unspecified; F32.9 Major depressive disorder, single episode, unspecified; R56.9 Unspecified convulsions; F41.9 Anxiety disorder, unspecified; E11.649 Type 2 diabetes mellitus with hypoglycemia without coma; E11.22 Type 2 diabetes mellitus with diabetic chronic kidney disease; K21.9 Gastro-esophageal reflux disease without esophagitis; J44.9 Chronic obstructive pulmonary disease, unspecified; Z90.710 Acquired absence of both cervix and uterus; Z90.49 Acquired absence of other specified parts of digestive tract; Z90.11 Acquired absence of right breast and nipple; Z79.84 Long term (current) use of oral hypoglycemic drugs; Z88.8 Allergy status to other drugs, medicaments and biological substances; Z79.899 Other long term (current) drug therapy; Z79.4 Long term (current) use of insulin; Z98.41 Cataract extraction status, right eye; Z98.42 Cataract extraction status, left eye; Z82.49 Family history of ischemic heart disease and other diseases of the circulatory system; Z83.3 Family history of diabetes mellitus

== ENCOUNTER 2017-12-20 18:15 | Inpatient (IN) | payer OTHER ==
[~2017-12-20] VITALS: Ht 160 cm; Wt 68.5 kg
--- NOTE | ~2017-12-20 | CON ---
[place], [place] REPORT OF CONSULTATION NAME: RODRIGO ORTEGA REDWOOD LLCT #: [id number] UNIT #: [id number] ROOM: 524 DOCTOR: ANURAG SOLARES MD BIRTHDATE: [birth year] DOS: 12/23/2017 ATTENDING PHYSICIAN: Marques Cruz D.O. HISTORY OF PRESENT ILLNESS: 1. The patient is an 87-year-old female with advanced adult failure to thrive. 2. Late onset Alzheimer's type dementia and mental confusion. 3. Generalized anxiety disorder. 4. Chronic diastolic type congestive heart failure. 5. Chronic kidney disease stage 3. 6. Chronic obstructive pulmonary disease, pulmonary fibrosis disease. 7. Type 2 diabetes mellitus. 8. Diverticulosis of the colon. 9. GERD and esophagitis with hiatal hernia. 10. History of breast cancer. 11. Mixed hyperlipidemia. 12. Benign essential hypertension. 13. Radial nerve palsy. 14. Inability to ambulate. 15. History of cataract extractions, cholecystectomy, hysterectomy and mastectomy. The patient presently admitted to [facility] with complaints of advanced dementia and adult failure to thrive. The patient is unable to ambulate and she is not eating well and a PEG tube insertion was being considered. The patient has severe protein-calorie malnutrition and is unable to provide any history. REVIEW OF SYSTEMS: LUNGS: No increasing shortness of breath, but she has a history of COPD. GASTROINTESTINAL: No nausea, vomiting, diarrhea, constipation, but poor appetite and history of malnutrition. CARDIOVASCULAR: No chest pains or palpitations. FAMILY HISTORY: Noncontributory. SOCIAL HISTORY: Former smoker. No history of any illegal drug abuse or alcohol abuse. PRESENT MEDICATIONS: Mirtazapine, atenolol, amlodipine, magnesium, simvastatin, DuoNeb, vancomycin intravenously. PHYSICAL EXAMINATION: GENERAL: Awake, alert, pleasantly confused, in no visible distress. Generalized weakness and mental confusion. VITAL SIGNS: Blood pressure 123/57, heart rate 73 beats per minute, breathing 18 times per minute, afebrile. HEENT AND NECK: Extraocular movements are intact. Sclerae are anicteric. Oral mucosa is moist and clean. No obvious facial weakness. Neck is supple without any lymphadenopathy. No thyromegaly. No JVD. No carotid arterial bruits. [place], [place] REPORT OF CONSULTATION NAME: RODRIGO ORTEGA UNIT #: [id number] ROOM: 524 DOCTOR: ANURAG SOLARES MD BIRTHDATE: [birth year] LUNGS: Clear to auscultation. No wheezing. No rhonchi. CARDIOVASCULAR SYSTEM: Heart rate is regular in rate and rhythm. S1 and S2 normally audible. No significant murmur or any other abnormal cardiac sounds. ABDOMEN: Soft, nontender. No obvious organomegaly. Bowel sounds are present. No obvious herniation. EXTREMITIES: Without significant cyanosis or edema. Warm to touch. CENTRAL NERVOUS SYSTEM: Alert and oriented x 3. Cranial nerves II-XII are intact. Speech is normal. The patient is able to move all extremities. Normal muscle strength. Deep tendon reflexes are equal on both sides. Plantars were downgoing. LABORATORY DATA: BUN and creatinine 13 and 2.15. Normal serum electrolytes. Blood cultures negative. No leukocytosis, hemoglobin 11.2, albumin level at 2.2. IMPRESSION: The patient with advance adult failure to thrive with old age of 87 and severe protein-calorie malnutrition with poor appetite and poor oral intake along with late onset Alzheimer's type dementia and mental confusion. I had a detailed discussion with the patient's power of employee development director who has decided against PEG tube insertion to improve her nutrition because the patient is unlikely to benefit from this and may prolong her suffering. The patient's power of employee development director has agreed to consult hospice care for comfort measures only. The patient already was maintaining a DNR comfort care code status. I will encourage oral intake bedsore precautions, keeping the patient clean and at a nursing facility along with hospice care and keeping her comfortable with Ativan or morphine as necessary. I will continue her mirtazapine, atenolol, amlodipine, but simvastatin can be discontinued. I will also continue DuoNeb breathing treatments. Benign essential hypertension being treated and controlled. Blood pressure is staying normal. The patient on atenolol and amlodipine. 1. Mixed hyperlipidemia, being treated with simvastatin, which I will to recommend to be discontinued because it is not going to improve the patient's prognosis at this time. 2. Chronic obstructive pulmonary disease. The patient to be continued on DuoNeb and bronchodilators and oxygen if needed. The patient is with adult failure to thrive, ambulatory dysfunction and unable to walk. Will take bedsore precaution including every 2 hour turning and take fall precautions. Dr. Marques Cruz, thank you for asking me to see the patient. [place], [place] REPORT OF CONSULTATION NAME: RODRIGO ORTEGA UNIT #: [id number] ROOM: 524 DOCTOR: ANURAG SOLARES MD BIRTHDATE: [birth year] ANURAG SOLARES MD CM:CONSTR:REPORT OF CONSULTATION 1859 12/24/17 0637 interface
[~2017-12-20 18:15] MED LIST changes: +MAGNESIUM OXID400 MG PO; +REMERON15 M2 PO; +VANCO 1 GR1 GM/250 M IV
[2017-12-20 18:18] VITALS: BP 145/96
[2017-12-20 19:03] LABS: BASO # 0.1 10*3/uL (0.0-0.1); BASO % 0.4 % (0.0-1.0); EOS # 0.3 10*3/uL (0.0-0.4); EOS % 1.2 % (1.0-4.0); HEMATOCRIT 33.6 % (37.0-47.0); HEMOGLOBIN 10.9 g/dl (12.0-16.0); LYMPH # 1.2 10*3/uL (1.3-4.4); LYMPH % 5.6 % (27.0-41.0); MEAN CORPUSCULAR HGB 26.9 pg (27.0-31.0); MEAN CORPUSCULAR HGB CONC 32.4 g/dl (33.0-37.0); MONO % 4.7 % (3.0-9.0); NEUT # 19.3 10*3/uL (2.3-7.9); NEUT % 87.5 % (47.0-73.0); PLATELET COUNT AUTOMATED 221 10*3/uL (130-400); RED BLOOD COUNT 4.05 10*6/uL (4.10-5.10); RED CELL DISTRI WIDTH 18.6 % (0-14.5); WHITE BLOOD COUNT 22.1 10*3/uL (4.8-10.8)
[2017-12-20 19:13] LABS: ACT PARTIAL THROMBO TIME 20.9 SECONDS (20.8-31.5); INTERNATIONAL NORM RATIO 1.1 (2.0-3.5)
[2017-12-20 19:20] LABS: ALBUMIN 2.2 gm/dl (3.1-4.5); ALKALINE PHOSPHATASE 110 U/L (45-117); BUN 14 mg/dl (7-24); CHLORIDE 116 mmol/L (98-107); CREATININE 2.56 mg/dL (0.55-1.02); LIPASE 349 U/L (73-393); POTASSIUM 3.7 mmol/L (3.5-5.1); SGOT/AST 19 IU/L (3-35); SGPT/ALT 12 U/L (12-78); SODIUM 146 mmol/L (136-145); TOTAL PROTEIN 5.2 gm/dL (6.4-8.2)
[2017-12-20 19:21] LABS: TROPONIN I < 0.015 ng/ml (<0.045)
[2017-12-20 20:02] VITALS: BP 134/62
[2017-12-20 20:06] LABS: BILIRUBIN NEGATIVE (NEGATIVE); BLOOD NEGATIVE (NEGATIVE); CLARITY SL CLOUDY (CLEAR); COLOR YELLOW (YELLOW); GLUCOSE NEGATIVE (NEGATIVE); KETONE NEGATIVE (NEGATIVE); LEUKO ESTERASE NEGATIVE (NEGATIVE); NITRITE NEGATIVE (NEGATIVE); PH 5.5 (5.0-9.0); SPECIFIC GRAVITY >= 1.030 (1.005-1.030); UROBILINOGEN 0.2 E.U./dl (0.2-1.0)
[2017-12-20 20:31] LABS: BACTERIA 4+
[2017-12-20 20:32] LABS: MUCOUS TRACE
[2017-12-20 20:33] LABS: YEAST 2+
[2017-12-20 20:45] VITALS: BP 115/41
[2017-12-20 21:23] VITALS: BP 160/50
[2017-12-20 21:34] VITALS: BP 140/82
[2017-12-21] VITALS: BP 151/53
[2017-12-21 05:50] LABS: CREATININE 2.42 mg/dL (0.55-1.02); POTASSIUM 3.8 mmol/L (3.5-5.1)
[2017-12-21 05:51] LABS: PHOSPHOROUS 3.5 mg/dL (2.5-4.9)
[2017-12-21 06:08] LABS: HEMATOCRIT 36.1 % (37.0-47.0); HEMOGLOBIN 11.2 g/dl (12.0-16.0); MEAN CELL VOLUME 85.7 fl (81.0-99.0); MEAN CORPUSCULAR HGB 26.6 pg (27.0-31.0); MEAN PLATELET VOLUME 11.2 fl (9.6-12.3); RED BLOOD COUNT 4.21 10*6/uL (4.10-5.10); RED CELL DISTRI WIDTH 18.7 % (0-14.5)
[2017-12-21 07:02] LABS: PLATELET COUNT AUTOMATED 141 10*3/uL (130-400)
[2017-12-21 07:09] LABS: PLATELET SUFFICIENCY NORMAL (NORMAL); TOTAL CELLS COUNTED 100 #CELLS
[2017-12-21 08:00] VITALS: BP 142/79
[2017-12-21 12:00] VITALS: BP 141/66
[2017-12-21 16:00] VITALS: BP 140/73
[2017-12-21 20:00] VITALS: BP 118/62
[2017-12-22] VITALS: BP 157/69
[2017-12-22 08:00] VITALS: BP 160/89
[2017-12-22 16:00] VITALS: BP 128/56
[2017-12-22 20:00] VITALS: BP 125/64
[2017-12-23] VITALS: BP 128/98
[2017-12-23 06:49] LABS: BASO % 0.4 % (0.0-1.0); EOS # 0.3 10*3/uL (0.0-0.4); EOS % 2.5 % (1.0-4.0); HEMATOCRIT 32.7 % (37.0-47.0); HEMOGLOBIN 10.3 g/dl (12.0-16.0); LYMPH # 1.1 10*3/uL (1.3-4.4); LYMPH % 9.6 % (27.0-41.0); MEAN CELL VOLUME 84.1 fl (81.0-99.0); MEAN CORPUSCULAR HGB 26.5 pg (27.0-31.0); MEAN CORPUSCULAR HGB CONC 31.5 g/dl (33.0-37.0); MEAN PLATELET VOLUME 11.6 fl (9.6-12.3); MONO # 0.7 10*3/uL (0.1-1.0); MONO % 6.1 % (3.0-9.0); NEUT % 80.9 % (47.0-73.0); PLATELET COUNT AUTOMATED 167 10*3/uL (130-400); RED BLOOD COUNT 3.89 10*6/uL (4.10-5.10); RED CELL DISTRI WIDTH 18.4 % (0-14.5); WHITE BLOOD COUNT 11.1 10*3/uL (4.8-10.8)
[2017-12-23 07:04] LABS: CREATININE 2.15 mg/dL (0.55-1.02); POTASSIUM 4.2 mmol/L (3.5-5.1)
[2017-12-23 08:00] VITALS: BP 131/71
[2017-12-23 16:00] VITALS: BP 123/57
[2017-12-23 20:00] VITALS: BP 132/60
[2017-12-24] VITALS: BP 157/72
[2017-12-24 08:00] VITALS: BP 151/54
[2017-12-24 12:00] VITALS: BP 146/89
[2017-12-24] MEDS ORDERED: VANCO 1 GR1 GM/150 M IV (15:19)
[2017-12-24] MEDS ORDERED: MIRTAZAPINE15 M2 PO (15:19)
[2017-12-24] MEDS ORDERED: NYSTOP60 GM T (15:19)
== END 2017-12-24 16:47 | DRG 314 ==
LOC: ED 18:15 → EDHOLD 20:52 → 5E 20:52
PROVIDERS: Internal Medicine; Physician Assistant; Student in an Organized Health Care Education/Training Program
DX: T82.7XXA Infection and inflammatory reaction due to other cardiac and vascular devices, implants and grafts, initial encounter (principal); N17.0 Acute kidney failure with tubular necrosis; E43 Unspecified severe protein-calorie malnutrition; G93.41 Metabolic encephalopathy; E87.0 Hyperosmolality and hypernatremia; E11.22 Type 2 diabetes mellitus with diabetic chronic kidney disease; E11.649 Type 2 diabetes mellitus with hypoglycemia without coma; E86.0 Dehydration; R13.10 Dysphagia, unspecified; E87.2 Acidosis; I50.32 Chronic diastolic (congestive) heart failure; I13.0 Hypertensive heart and chronic kidney disease with heart failure and stage 1 through stage 4 chronic kidney disease, or unspecified chronic kidney disease; N39.0 Urinary tract infection, site not specified; Z66 Do not resuscitate; Z51.5 Encounter for palliative care; F41.9 Anxiety disorder, unspecified; E78.2 Mixed hyperlipidemia; R62.7 Adult failure to thrive; J42 Unspecified chronic bronchitis; K21.9 Gastro-esophageal reflux disease without esophagitis; N18.3 Chronic kidney disease, stage 3 (moderate); D72.9 Disorder of white blood cells, unspecified; Y83.8 Other surgical procedures as the cause of abnormal reaction of the patient, or of later complication, without mention of misadventure at the time of the procedure; B96.89 Other specified bacterial agents as the cause of diseases classified elsewhere; R82.71 Bacteriuria; F03.90 Unspecified dementia, unspecified severity, without behavioral disturbance, psychotic disturbance, mood disturbance, and anxiety; E87.8 Other disorders of electrolyte and fluid balance, not elsewhere classified; D72.810 Lymphocytopenia; Z88.5 Allergy status to narcotic agent; Z90.49 Acquired absence of other specified parts of digestive tract; Z90.710 Acquired absence of both cervix and uterus; Z90.10 Acquired absence of unspecified breast and nipple; Y92.89 Other specified places as the place of occurrence of the external cause; Z68.26 Body mass index [BMI] 26.0-26.9, adult; Z79.4 Long term (current) use of insulin; Z98.49 Cataract extraction status, unspecified eye; Z80.3 Family history of malignant neoplasm of breast; Z82.49 Family history of ischemic heart disease and other diseases of the circulatory system; Z87.891 Personal history of nicotine dependence